=== PATIENT | female | born 1950 | race Caucasian/White ===

== ENCOUNTER 2019-12-20 12:05 | Inpatient (IN) | payer MEDICARE, MEDICAID, SELFPAY ==
[2019-12-20] VITALS (12 sets, daily range): BP systolic 132–149; BP diastolic 61–76; PULSE 68–126; RESP 20–30; TEMP 36.7–37; O2SAT 85–99; BMI 40.4
--- NOTE | ~2019-12-20 | CT_ITS ---
EXAMINATION: CT brain wo con DATE: 12/20/2019 13:45 INDICATION: Altered mental status TECHNIQUE: Computed tomography (CT) of the head was performed without intravenous contrast. Sagittal and coronal reconstructions were performed. The mA was adjusted according to patient size. Iterative reconstruction technique was employed. The dose-length product was 832.33 mGy-cm. COMPARISON: head CT dated 11/16/2015 FINDINGS: Small old lacunar infarct at the left thalamus. No acute intracranial hemorrhage, acute infarction or abnormal extra axial fluid collection. There is moderate scattered white matter hypoattenuation cons istent with chronic small vessel ischemic disease. Ventricles are normal and symmetric. No mass/mass effect. Mild mucosal thickening in the bilateral ethmoid and maxillary sinuses. The orbits and mastoi d air cells are normal. Intracranial calcified cerebral atherosclerosis is noted. IMPRESSION: 1. No acute intracranial process. 2. Unchanged old left thalamic lacunar infarct. 3. Moderate scattered white matter hypoattenuation consistent with chronic small vessel ischemic dise ase. Reviewed, dictated and finalized at location B. IMPRESSION: 1. No acute intracranial process. 2. Unchanged old left thalamic lacunar infarct. 3. Moderate scattered white matter hypoattenuation consistent with chronic smal l vessel ischemic disease.
--- NOTE | ~2019-12-20 | MR_ITS ---
EXAMINATION: MR brain/brain stem wo con DATE: 12/22/2019 13:08 INDICATION: Altered mental status. TECHNIQUE: Magnetic resonance imaging (MRI) of the brain and brainstem was performed without intraven ous contrast. Sequences included sagittal and axial T1-weighted FSE, axial diffusion-weighted FS EPI, axial T2*-weighted GRE, axial T2-weighted FLAIR Propeller, and axial T2-weighted Propeller. Apparent diffusion coefficient (ADC) maps were created. COMPARISON: Head CT 12/20/2019 FINDINGS: Motion artifact is noted. There are scattered areas of nonspecific increased T2-weighted si gnal intensity in the cerebral white matter and melissa. There is an old lacunar infarct in left thalamu s. There is no intracranial hemorrhage, acute infarction, or abnormal intracranial mass lesion. The v entricles are normal in size. There are likely changes of right ocular lens replacement surgery. Ther e is mild mucosal thickening in the paranasal sinuses. There is a small right mastoid effusion. IMPRESSION: 1. Old lacunar infarct in left thalamus. 2. Extensive nonspecific cerebral white matter disease and pontine disease, which likely represents c hronic small vessel ischemic disease. Reviewed, dictated and finalized at location A. IMPRESSION: 1. Old lacunar infarct in left thalamus. 2. Extensive nonspecific cerebral white matter disease and pontine disease, whi ch likely represents chronic small vessel ischemic disease.
--- NOTE | ~2019-12-20 | XR_ITS ---
EXAMINATION: XR chest 1V INDICATION: Shortness of breath TECHNIQUE: AP view of the chest is obtained. COMPARISON: 11/16/2015 FINDINGS: The heart size is upper limits of normal for technique. There are minimal airspace opacitie s of the lung bases, left greater than right. A small left pleural effusion is suggested. There is no pneumothorax. IMPRESSION: 1. Bibasilar airspace opacity, left greater than right, consistent with atelectasis versus pneumonia. 2. Possible small left pleural effusion. Reviewed, dictated and finalized at location A. IMPRESSION: 1. Bibasilar airspace opacity, left greater than right, consistent with atelect asis versus pneumonia. 2. Possible small left pleural effusion.
--- NOTE | ~2019-12-20 | US_ITS ---
EXAMINATION: US renal BI DATE: 12/21/2019 08:24 INDICATION: Acute kidney injury. TECHNIQUE: Multiple ultrasound grayscale images of the kidneys were obtained. COMPARISON: Abdomen MRI 02/12/2013 FINDINGS: The right kidney measures 9.0 x 4.8 x 5.0 cm. The left kidney measures 9.0 x 4.9 x 5.4 cm. The kidney s demonstrate normal parenchymal echogenicity. There is no hydronephrosis. The bladder is normal. IMPRESSION: 1. Normal kidneys. No hydronephrosis. Reviewed, dictated and finalized at location A.
--- NOTE | ~2019-12-20 | US_ITS ---
EXAMINATION: US venous doppler [facility] DATE: 12/21/2019 08:25 INDICATION: Lower limb edema. TECHNIQUE: Grayscale ultrasound images without and with compression and Doppler ultrasound images of the bilateral lower extremity veins were obtained. COMPARISON: Ultrasound 06/07/13 FINDINGS: The visualized portions of right common femoral vein, profunda (deep) femoral vein, femoral vein, pop liteal vein, peroneal veins, posterior tibial veins, and greater saphenous vein outflow are patent. The visualized portions of left common femoral vein, profunda femoral vein, femoral vein, popliteal v ein, peroneal veins, posterior tibial veins, and greater saphenous vein outflow are patent. IMPRESSION: 1. No deep venous thrombosis. Reviewed, dictated and finalized at location A.
--- NOTE | ~2019-12-20 | US_ITS ---
EXAMINATION: US carotid duplex BI DATE: 12/22/2019 08:10 INDICATION: Infarct in left thalamus. TECHNIQUE: Grayscale, color Doppler, and pulsed Doppler images of the cervical carotid arteries were obtained. The degree of vessel stenosis is placed in one of the following categories: normal, <50%, 5 0-69%, >=70% but less than near-occlusion, near-occlusion, or total occlusion. Note that percent sten osis relative to normal distal artery lumen diameter is indirectly measured from velocity measurement s as described by Daniel, et al. Radiology 2003; 229:340-346. COMPARISON: None. FINDINGS: RIGHT: The right common carotid artery (CCA) peak systolic velocity (PSV) is 63 cm/s. The right internal car otid artery (ICA) PSV is 109 cm/s. The right ICA end-diastolic velocity (EDV) is 20 cm/s. The right I CA/CCA PSV ratio is 1.7. Grayscale and color Doppler images yield an estimate of <50% diameter reduct ion from plaque in the ICA. There is antegrade flow in the right vertebral artery. LEFT: The left CCA PSV is 83 cm/s. The left ICA PSV is 92 cm/s. The left ICA EDV is 25 cm/s. The left ICA/C CA PSV ratio is 1.1. Grayscale and color Doppler images yield an estimate of <50% diameter reduction from plaque in the ICA. There is antegrade flow in the left vertebral artery. IMPRESSION: 1. <50% stenosis in the right internal carotid artery. 2. <50% stenosis in the left internal carotid artery. Reviewed, dictated and finalized at location A.
[2019-12-20 12:39] LABS: Add Urine Microscopic? NO; Appearance Urine Clear (Clear); Bilirubin Urine Negative (Negative); Blood Urine Negative (Negative); Color Urine Yellow (Yellow); Glucose Urine UA Negative (Negative); Ketones Urine Negative (Negative); Leukocyte Esterase Ur Negative LEU/UL (Negative); Nitrate Urine Negative (Negative); Protein Urine Negative (Negative); Specific Grav Ur 1.013 (1.001-1.035); Urobilinogen Urine Negative mg/dL (<2.0)
--- NOTE | 2019-12-20 12:41 | ECG_ITS ---
Measurements Intervals [place] Rate: 101 P: 59 LA: 149 QRS: 32 QRSD: 94 T: 29 QT: 340 QTc: 442 Interpretive Statements SINUS TACHYCARDIA VENTRICULAR PREMATURE COMPLEX POSSIBLE LEFT ATRIAL ENLARGEMENT BORDERLINE R WAVE PROGRESSION, ANTERIOR LEADS BASELINE ARTIFACT- I, II, III, AVR, AVF ABNORMAL ECG Electronically Signed On 12-20-2019 13:04:18 CDT by Monroe Kessler D.O.
[2019-12-20 12:42] LABS: Basophils Percent Auto 0.6 % (0.2-1.2); Eosinophils Absolute Auto 0.3 K/mm3 (0-0.3); Eosinophils Percent Auto 3.9 % (0-4.4); Hematocrit 32.4 % (37.0-47.0); Hemoglobin 10.4 g/dL (12.0-15.0); Immature Granulocyte Absolute 0.02 K/mm3 (0.00-0.031); Immature Granulocyte Percent A 0.3 % (0-0.5); Lymphocytes Absolute Auto 1.47 K/mm3 (0.9-3.2); Lymphocytes Percent Auto 20.5 % (18.3-44.2); Mean Corpuscular HGB Conc 32.1 g/dl (32-36); Mean Corpuscular Hemoglobin 29.6 pg (26-34); Mean Corpuscular Volume 92.3 fl (80-100); Mean Platelet Volume 9.6 fl (7.4-10.4); Monocytes Absolute Auto 0.4 K/mm3 (0.1-0.6); Monocytes Percent Auto 4.9 % (2.6-8.5); Neutrophils Percent Auto 69.8 % (45.5-73.1); Nucleated Red Blood Cells Perc 0.3 % (0.0-0.2); Platelet Count Result 230 k/mm3 (150-375); Red Blood Count 3.51 M/mm3 (4.2-5.4); Red Cell Distribution Width 17.1 % (11.5-14.5); White Blood Count 7.2 K/mm3 (4.5-10.0)
[2019-12-20 12:54] LABS: Anion Gap 4 mmol/L (8-16); Blood Urea Nitrogen 62 mg/dL (7-17); Carbon Dioxide 30 mmol/L (22-30); Chloride 105 mmol/L (98-107); Estimated CRCL calculation 22 ml/min; Estimated Glomerular Filt Rate 16; Glucose 112 mg/dL (65-105); Lactic Acid Reflex 0.7 mmol/L (0.7-2.1); Potassium 4.8 mmol/L (3.4-5.0); Sodium 139 mmol/L (137-145)
[2019-12-20] MEDS: SODIUM CHLORIDE 0.9% IV 1,000 ML 999 ML IV CONT (13:02)
[2019-12-20 13:42] LABS: Base Excess ABG 0.5 mEq/l (+/-2.0); HCO3 ABG 26.7 mEq/l (22.0-26.0); Oxygen Saturation ABG 82.5 % (95.0-100.0); PCO2 ABG 50.2 mmHg (35.0-45.0); PO2 ABG 49.5 mmHg (80.0-100.0); pH ABG 7.344 (7.350-7.450)
[2019-12-20 13:43] LABS: Alveolar/Arterial O2 Gradient 40.1 mmHg; Carboxyhemoglobin 4.4 % THb (0-2.0); Device ROOM AIR; Fractional Inspired Oxygen 21 %; Methemoglobin ABG 0.3 %THb (0-1.5); Modified Allen's Test Pass; Oxygen Content ABG 12.6 %vol (16.0-22.0); Oxyhemoglobin 81.3 % THb (90.0-100.0); PO2 FiO2 Ratio Arterial Blood 2.36 %; Site Drawn LEFT RADIAL
[2019-12-20 14:05] LABS: NT Pro B Type Natriuretic Pept 930 PG/ML (5-100)
--- NOTE | 2019-12-20 14:16 | ED.AMS ---
HPI - Altered Mental Status General Chief Complaint: Altered Mental Status Stated Complaint: AMS History of Present Illness HPI narrative: Patient is a 69-year-old female who presents the ER with altered mental status. Last known normal was yesterday. Patient not come down from her apartment for breakfast today. Patient is alert and oriented x1 which is apparently abnormal for her. She has no complaints but there is clear limitation due to her mental status. Patient was hypoxic upon arrival for EMS so she was placed on supplemental O2. Related Data Home Medications Medication Instructions Recorded Confirmed Adults Multivitamin 1 tablet PO DAILY 12/20/19 12/20/19 acetaminophen [Tylenol] 325 mg PO Q4-6H PRN 12/20/19 12/20/19 allopurinol 100 mg PO DAILY 12/20/19 12/20/19 aspirin [Baby Aspirin] 81 mg PO DAILY 12/20/19 12/20/19 atorvastatin 20 mg PO DAILY 12/20/19 12/20/19 chlorthalidone 25 mg PO DAILY 12/20/19 12/20/19 cholecalciferol (vitamin D3) 1,000 units PO DAILY 12/20/19 12/20/19 furosemide 60 mg PO DAILY 12/20/19 12/20/19 gabapentin 300 mg PO TID 12/20/19 12/20/19 glimepiride 1 mg PO DAILY 12/20/19 12/20/19 insulin degludec [Tresiba 14 unit SUBCUT DAILY 12/20/19 12/20/19 FlexTouch U-100] lisinopril 40 mg PO DAILY 12/20/19 12/20/19 oxybutynin chloride 5 mg PO DAILY 12/20/19 12/20/19 pantoprazole [Protonix] 20 mg PO DAILY 12/20/19 12/20/19 triamcinolone acetonide 1 applic TOPICAL DAILY 12/20/19 12/20/19 Allergies Allergy/AdvReac Type Severity Reaction Status Date / Time No Known Allergies Allergy Verified 12/20/19 18:11 Review of Systems Review of Systems: ROS unobtainable: Yes unobtainable due to mental status PMFSH Past Medical History Medical History (Updated 12/21/19 @ 00:16 by Angel Rushing MD) Chronic obstructive pulmonary disease Diabetic retinopathy 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 History of colon polyps History of peptic ulcer disease Hyperlipidemia Hypertension Insulin dependent diabetes mellitus Morbid obesity Overactive bladder Tobacco abuse Surgical History Surgical History (Updated 12/20/19 @ 21:01 by Mine Sidhu PA-C) History of cholecystectomy Family History Family History (Updated 12/20/19 @ 21:02 by Mine Sidhu PA-C) Mother Emphysema/COPD Father Carcinoma of colon Sibling Diabetes mellitus Social History Social History (Updated 12/20/19 @ 21:03 by Mine Sidhu PA-C) Social History: Surrogate decision maker: Yfn Cheung, nephew. Code status: Full code. Smoking packs per day: 2 Smoking cigarettes per day: 40.0 Years smoked: 58 Smoking pack-years: 116.00 Alcohol intake: never Substance use: never Additional living arrangements comments: Lives in a senior apartment in [place]. Reportedly independent of ADLs. Ambulates mainly with an electric scooter. Gender identity (if verbalized by the patient): Female Sexual Orientation (if Verbalized by the Patient): Straight or Heterosexual Spiritual care concerns: No Exam Narrative: Exam Narrative: GENERAL: Chronically ill-appearing, morbidly obese, smells of old urine. HEAD: Normocephalic, atraumatic. EYES: PERRL and EOMI. CHEST: Clear to auscultation, occasional coarse cough. No respiratory distress. HEART: Tachycardic and regular. Normal peripheral pulses. ABDOMEN: Soft, nontender, nondistended. EXTREMITIES: Normal range of motion. Chronic venous stasis changes bilateral lower extremities.. SKIN: Warm, dry, no rash. NEURO: Alert and oriented x1 Course Course Emergency Course: Heart rate improving with fluids. Admit to hospitalist service. Patient now oriented x2. Vital Signs Vital signs: Vital Signs Temperature 98.3 F 12/20/19 12:27 Pulse Rate 126 H 12/20/19 12:27 Respiratory Rate 30 H 12/20/19 12:27 Blood Pressure 132/76 12/20/19 12:27 Pulse Oximetry 96 12/20/19 12:27 Temperature 98.6 F 12/20/19 22:00
--- NOTE | 2019-12-20 17:15 | PM.IMHP ---
H&P: HPI History of Present Illness Date/Time: 12/20/19 17:15 Chief complaint: Altered mental status. Narrative: Sherrie Muniz is a 69-year-old female smoker with type 2 diabetes mellitus, hypertension, and COPD who presented to the emergency department earlier today via EMS from home for evaluation of altered mental status. Given her underlying confusion she is not able to provide me with an accurate history and as such a majority of this history is obtained via a review of her electronic medical records as well as discussions with nursing staff and review of the EMS report. At baseline she is reportedly alert and oriented x4 and gets around mainly with the use of an electric scooter. She lives in a senior apartment and it sounds as though meals are provided for them in a common place and she apparently did not show up for dinner last night or this morning, prompting investigation. Her friend Dayo last saw her in her usual state of health yesterday afternoon and she seemed to be doing just fine. In any event, EMS found her sitting in a recliner, alert and oriented x1, however she was not answering questions. At the time my evaluation she is alert to her name, age, and place however she cannot recall the events of the last 24 hours. The only complaint she has at this time is of the room being cold and she requests a warm blanket. Currently she denies headache, acute auditory and visual changes (she is blind in the left eye) fever, sweats, cough, shortness of breath, sick contacts, nausea, vomiting, diarrhea, and dysuria. Review of Systems Review of Systems: Narrative: Twelve systems were reviewed with pertinent positives and negatives as per HPI. Given her underlying confusion and inability to recall what happened over last 24 hour she is not able to provide me with an accurate review of systems but did specifically deny those as detailed in HPI. All other systems were reviewed and she either stated ?no? or I do not know? for every question asked of her. 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 History of colon polyps History of peptic ulcer disease Hyperlipidemia Hypertension Insulin dependent diabetes mellitus Morbid obesity Overactive bladder Tobacco abuse Surgical History Surgical History (Updated 12/20/19 @ 21:01 by Mine Sidhu PA-C) History of cholecystectomy Family History Family History (Updated 12/20/19 @ 21:02 by Mine Sidhu PA-C) Mother Emphysema/COPD Father Carcinoma of colon Sibling Diabetes mellitus Social History Social History (Updated 12/20/19 @ 21:03 by Mine Sidhu PA-C) Social History: Surrogate decision maker: Yfn Cheung, nephew. Code status: Full code. Smoking packs per day: 2 Smoking cigarettes per day: 40.0 Years smoked: 58 Smoking pack-years: 116.00 Alcohol intake: never Substance use: never Additional living arrangements comments: Lives in a senior apartment in [place]. Reportedly independent of ADLs. Ambulates mainly with an electric scooter. Gender identity (if verbalized by the patient): Female Sexual Orientation (if Verbalized by the Patient): Straight or Heterosexual Spiritual care concerns: No Meds Home Medications and Allergies Home Medications Medication Instructions Recorded Confirmed Type Adults Multivitamin 1 tablet PO DAILY 12/20/19 12/20/19 History acetaminophen [Tylenol] 325 mg PO Q4-6H PRN 12/20/19 12/20/19 History allopurinol 100 mg PO DAILY 12/20/19 12/20/19 History aspirin [Baby Aspirin] 81 mg PO DAILY 12/20/19 12/20/19 History atorvastatin 20 mg PO DAILY 12/20/19 12/20/19 History chlorthalidone 25 mg PO DAILY 12/20/19 12/20/19 History cholecalciferol (vitamin D3) 1,000 units PO DAILY 12/20/19 12/20/19 History furosemide 60 mg PO DA
--- NOTE | 2019-12-20 18:15 | PC.NURSE ---
9622 This patient, Sherrie Muniz, was admitted to [facility] Surg Room 324-01. Patient/family oriented to hospital policies and general routines including ID bracelet, bed and alarms, visiting hours, pain management, procedures, bathroom and other care routines, personal items, smoking policy, room service/diet, and visiting hours. Information on how to activate the Rapid Response Team has been discussed. Patient/Family are encouraged to report perceived risks to care and to ask questions if they do not understand what they are told or what they should do.
[2019-12-20] MEDS: SODIUM CHLORIDE 0.9% IV 1,000 ML 125 ML IV CONT (18:23)
[2019-12-20] MEDS: IPRATROPIUM BR 0.02% INH SOLN 0.5 MG/2.5 ML VIAL INHALATION (19:28)
[2019-12-20] MEDS: ALBUTEROL SULFATE NEB 2.5 MG/0.5 ML INH 5 MG INHALATION (19:28)
[2019-12-20 21:38] LABS: Alveolar/Arterial O2 Gradient 47.5 mmHg; Base Excess ABG -3.1 mEq/l (+/-2.0); Carboxyhemoglobin 1.2 % THb (0-2.0); Fractional Inspired Oxygen 21 %; HCO3 ABG 22.8 mEq/l (22.0-26.0); Methemoglobin ABG 0.3 %THb (0-1.5); Oxygen Content ABG 12.7 %vol (16.0-22.0); Oxyhemoglobin 83.6 % THb (90.0-100.0); PCO2 ABG 44.4 mmHg (35.0-45.0); PO2 FiO2 Ratio Arterial Blood 2.34 %; Reduced Hemoglobin 14.9 %THb (0-5.0); Total Hemoglobin 10.8 g/dL (12.0-18.0); pH ABG 7.329 (7.350-7.450)
[2019-12-20 21:43] LABS: Oxygen Saturation ABG 81.9 % (95.0-100.0); PO2 ABG 49.1 mmHg (80.0-100.0)
[2019-12-20 21:46] LABS: Hemoglobin A1C 7.4 % (<5.7)
[2019-12-20 21:51] LABS: Alanine Aminotransferase 26 U/L (4-35); Albumin Level 3.2 g/dL (3.5-5.1); Alkaline Phosphatase 280 U/L (38-126); Anion Gap 3 mmol/L (8-16); Aspartate Amino Transferase 31 U/L (14-36); Bilirubin,Total 0.3 mg/dL (0.2-1.3); Blood Urea Nitrogen 56 mg/dL (7-17); Calcium 8.7 mg/dL (8.4-10.2); Carbon Dioxide 29 mmol/L (22-30); Chloride 107 mmol/L (98-107); Creatine Kinase 441 U/L (30-135); Estimated CRCL calculation 26 ml/min; Estimated Glomerular Filt Rate 19; Glucose 88 mg/dL (65-105); Magnesium 2.3 mg/dL (1.6-2.3); Potassium 4.1 mmol/L (3.4-5.0); Sodium 139 mmol/L (137-145)
[2019-12-20 22:07] LABS: Iron 39 ug/dL (37-170)
[2019-12-20 22:18] LABS: Percent Iron Saturation 15 % (20-50)
[2019-12-20 23:13] LABS: Folic Acid > 20.0 ng/mL (2.76->20)
[2019-12-21] VITALS (11 sets, daily range): BP systolic 137–157; BP diastolic 55–87; PULSE 72–93; RESP 16–20; TEMP 36.4–36.9; O2SAT 96–98
[2019-12-21 00:43] LABS: Glucose Point of Care 82 (65-105)
[2019-12-21] MEDS: ALBUTEROL SULFATE NEB 2.5 MG/0.5 ML INH 5 MG INHALATION (01:53)
[2019-12-21] MEDS: IPRATROPIUM BR 0.02% INH SOLN 0.5 MG/2.5 ML VIAL INHALATION (01:54)
[2019-12-21] MEDS: SODIUM CHLORIDE 0.9% IV 1,000 ML 125 ML IV CONT ×2 (02:33→12:23)
[2019-12-21] MEDS: diphenhydrAMINE HCl CAP 25 MG CAPSULE PO (03:24)
[2019-12-21 03:42] LABS: Amphetamine Screen Urine Negative (Negative); Barbiturate Screen Urine Negative (Negative); Benzodiazepines Screen Urine Negative (Negative); Cannabinoid Screen Urine Negative (Negative); Cocaine Screen Urine Negative (Negative); Methadone Screen Urine Negative (Negative); Opiate Screen Urine Negative (Negative); Phencyclidine Screen Urine Negative (Negative)
[2019-12-21 06:02] LABS: Glucose Point of Care 142 (65-105)
[2019-12-21 09:30] LABS: Glucose Point of Care 100 (65-105)
--- NOTE | 2019-12-21 17:05 | PM.IMPN ---
Progress Note: A&P Assessment and Plan (1) Metabolic encephalopathy: Code(s): G93.41 - Metabolic encephalopathy Status: Acute (2) Respiratory failure with hypoxia and hypercapnia: Code(s): J96.91 - Respiratory failure, unspecified with hypoxia; J96.92 - Respiratory failure, unspecified with hypercapnia Status: Acute (3) Acute kidney injury: Code(s): N17.9 - Acute kidney failure, unspecified Status: Acute (4) Dehydration: Code(s): E86.0 - Dehydration Status: Acute (5) Normocytic anemia: Code(s): D64.9 - Anemia, unspecified Status: Acute (6) Insulin dependent diabetes mellitus: Status: Acute (7) Hypertension: Code(s): I10 - Essential (primary) hypertension Status: Inactive (8) Chronic obstructive pulmonary disease: Code(s): J44.9 - Chronic obstructive pulmonary disease, unspecified Status: Acute (9) Tobacco abuse: Code(s): Z72.0 - Tobacco use Status: Acute (10) Hyperlipidemia: Code(s): E78.5 - Hyperlipidemia, unspecified Status: Inactive Additional Plan 12/20/19:: The patient was admitted to the hospitalist service for further evaluation and treatment of metabolic encephalopathy presumably secondary to acute kidney injury, dehydration, and hypoxia/hypercapnia with possible chronic underlying respiratory failure. 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 She was admitted to telemetry and neurologic checks ordered. She seemed to perk up with IV fluids. Renal ultrasound ordered. Her blood pressure were well controlled. However, she was monitored closely because her lisinopril, chlorthalidone, and furosemide were placed on hold given acute kidney injury. Check hemoglobin A1c and initiate sliding scale insulin, Accu-Cheks, and hypoglycemic protocol. ABGs consistent with a chronic respiratory acidosis and given her body habitus she may very well have underlying obesity hypoventilation syndrome or even obstructive sleep apnea. Apnea link was ordered. Updrafts will be available as needed. No indication for steroids at this time. CXR showing bibasilar airspace opacity, left greater than right, consistent with atelectasis versus pneumonia. UDS negative 12/21/19:: Renal ultrasound was normal. Bilateral LE venous doppler was negative for DVT. Echo showing EF 65-70% with grade I diastolic dysfunction. ABG showing improvement last night with pCO2 down to 44. TCK 441. Cr better last night on repeat. Will continue IV fluids but decrease the rate. Start PT/OT. Eucerin cream to the legs. Resume some of her medications. Patient's blood pressure was reviewed on 12/20 and remains well controlled. The patient's blood glucose was reviewed on 12/20. Glucose remains well controlled. Continue AccuCheks covering with sliding scale. Hypoglycemia protocol available as needed. Will proceed with MRI brain. Lovenox for DVT prophylaxis Subjective Date/time seen: 12/21/19 17:05 Interval history: Date of service: 12/20 69yo female with DM and HTN here for altered mental status. Patient is alert but confused. She is unable to provide history. Review of Systems Review of Systems: ROS unobtainable: Yes unobtainable due to mental status Exam Narrative: Exam Narrative: AF 97.6 137/55 80 16 98% ra Gen - NARD sitting up in bed watching TV Chest - right base inspiratory crackles o/w clear CV - RRR S1/S2; Tele showing no significant dysrhythmias Abd - Soft, obese, NT Ext - deep fissured wrinkles bilateral LE Neuro - Alert, confused. Oriented to her name and location but perseverates with the answer '[birth year]' when asked the year or month. no obvious focal findings Psych - pleasant and mostly cooperative Skin - Warm and dry. Excoriations on the upper chest, abdomen and left lower extremity. Chronic bilateral LE skin changes with thickened, wrinkled skin. No linear tracks in the webs of the fingers or toes. Objective Da
[2019-12-21 17:37] LABS: Glucose Point of Care 142 (65-105)
[2019-12-21 18:20] LABS: Glucose Point of Care 189 (65-105)
[2019-12-21] MEDS: ENOXAPARIN 30 MG/0.3 ML SYRINGE SUB-Q (18:25)
[2019-12-21] MEDS: SODIUM CHLORIDE 0.9% IV 1,000 ML 75 ML IV CONT (20:27)
--- NOTE | 2019-12-21 21:27 | ECHO_ITS ---
Patient Info Name: Sherrie Muniz Age: 69 years : 1950 Gender: Female Ht: 66 in Wt: 250 lbs BSA: 2.35 m2 HR: 86 bpm BP: 147 / 87 mmHg Heart Rhythm: Sinus Rhythm Technical Quality: Poor Exam Date: 12/21/2019 7:58 AM Exam Location: [facility] Pulmonary Patient Status: Outpatient Admit Date: 12/20/2019 Staff Ordering Physician: Mine Sidhu PA-C Maintenance Millwright: Jesi Dahl RDCS Attending Provider: Allan Hedrick MD Referring Physician: Nahum PETERS; Exam Type: CA echo dop color flow w con Study Info Complete two-dimensional, color flow and Doppler transthoracic echocardiogram is performed with contrast to opacify the left ventricle and to improve the deliniation of the left ventricle endocardial borders. Contrast/Agitated Saline Contrast/Ag. Saline: Definity Amount: 4.00 ml Summary 1. Left ventricular systolic function is normal, estimated at 65-70%. 2. The left ventricular diastolic function is grade I diastolic dysfunction. 3. Definity contrast used to improve visualization. 4. Left atrial chamber dimension is mildly enlarged. 5. There is mild aortic valve sclerosis. 6. The left coronary cusp is sclerotic but the others are not. Overall therefore no stenosis. Left Ventricle Left ventricular chamber dimension is normal. Left ventricular systolic function is normal, estimated at 65-70%. There is mild concentric increased left ventricular wall thickness. The left ventricular diastolic function is grade I diastolic dysfunction. Definity contrast used to improve visualization. Right Ventricle Right ventricular chamber dimension is normal. Left Atria Left atrial chamber dimension is mildly enlarged. Right Atria Right atrial chamber dimension is normal. Aortic Valve The aortic valve is trileaflet. There is mild aortic valve sclerosis. The left coronary cusp is sclerotic but the others are not. Overall therefore no stenosis. Pulmonic Valve The pulmonic valve is not well visualized. Mitral Valve The mitral valve has normal leaflets. The mitral valve annulus is moderately calcified. Tricuspid Valve The tricuspid valve leaflets are normal. Pericardium/Pleural The pericardium appears normal. Aorta The aortic root size at the sinus of Valsalva is normal. Left Ventricular Outflow Tract Name Value Normal LVOT 2D LVOT Diameter 2.35 cm LVOT Doppler LVOT Peak Velocity 118.40 cm/s LVOT Peak Gradient 6 mmHg LVOT Mean Gradient 3 mmHg LVOT VTI 25.96 cm LVOT VTI/AV VTI Ratio 0.45 LVOT Stroke Volume 112.96 ml LVOT CO 8.36 l/min LVOT CI 3.55 L/min/m2 Pulmonic Valve Name Value Normal PV Doppler
[2019-12-21 22:03] LABS: Glucose Point of Care 176 (65-105)
[2019-12-22] VITALS (11 sets, daily range): BP systolic 148–160; BP diastolic 54–76; PULSE 61–102; RESP 20; TEMP 36.1–36.8; O2SAT 96–100
[2019-12-22 06:38] LABS: Hematocrit 30.7 % (37.0-47.0); Hemoglobin 9.8 g/dL (12.0-15.0); Mean Corpuscular HGB Conc 31.9 g/dl (32-36); Mean Corpuscular Hemoglobin 29.6 pg (26-34); Mean Corpuscular Volume 92.7 fl (80-100); Mean Platelet Volume 10.1 fl (7.4-10.4); Platelet Count Result 209 k/mm3 (150-375); Red Blood Count 3.31 M/mm3 (4.2-5.4); Red Cell Distribution Width 16.7 % (11.5-14.5); White Blood Count 6.6 K/mm3 (4.5-10.0)
[2019-12-22 07:16] LABS: Albumin Level 3.2 g/dL (3.5-5.1); Anion Gap 3 mmol/L (8-16); Blood Urea Nitrogen 33 mg/dL (7-17); Calcium 8.9 mg/dL (8.4-10.2); Carbon Dioxide 28 mmol/L (22-30); Chloride 112 mmol/L (98-107); Estimated CRCL calculation 38 ml/min; Estimated Glomerular Filt Rate 30; Glucose 144 mg/dL (65-105); Phosphorus 2.6 mg/dL (2.5-4.5); Potassium 4.3 mmol/L (3.4-5.0); Sodium 143 mmol/L (137-145)
[2019-12-22 08:57] LABS: Glucose Point of Care 137 (65-105)
[2019-12-22] MEDS: EUCERIN CREAM 454 GM JAR 1 APPLIC TOPICAL ×2 (09:00→19:13)
[2019-12-22] MEDS: SODIUM CHLORIDE 0.9% IV 1,000 ML 75 ML IV CONT ×2 (10:05→20:33)
[2019-12-22] MEDS: ASPIRIN 81 MG CHEWABLE TABLET PO (10:06)
[2019-12-22] MEDS: PANTOPRAZOLE SOD SESQUIHYDRATE 20 MG TAB PO (10:06)
[2019-12-22] MEDS: ATORVASTATIN 20 MG TABLET PO (10:07)
[2019-12-22] MEDS: MULTIVITAMINS THERAPEUTIC TAB (*BKC) 1 TABLET PO (10:07)
[2019-12-22] MEDS: CHOLECALCIFEROL 1,000 UNITS TABLET 1000 UNITS PO (10:07)
[2019-12-22] MEDS: ENOXAPARIN 30 MG/0.3 ML SYRINGE SUB-Q (10:08)
[2019-12-22 13:33] LABS: Glucose Point of Care 151 (65-105)
--- NOTE | 2019-12-22 16:32 | PM.IMPN ---
Progress Note: A&P Assessment and Plan (1) Metabolic encephalopathy: Code(s): G93.41 - Metabolic encephalopathy Status: Acute (2) Respiratory failure with hypoxia and hypercapnia: Code(s): J96.91 - Respiratory failure, unspecified with hypoxia; J96.92 - Respiratory failure, unspecified with hypercapnia Status: Acute (3) Acute kidney injury: Code(s): N17.9 - Acute kidney failure, unspecified Status: Acute (4) Dehydration: Code(s): E86.0 - Dehydration Status: Acute (5) Normocytic anemia: Code(s): D64.9 - Anemia, unspecified Status: Acute (6) Insulin dependent diabetes mellitus: Status: Acute (7) Hypertension: Qualifiers: Hypertension type: essential hypertension Qualified Code(s): I10 - Essential (primary) hypertension Code(s): I10 - Essential (primary) hypertension Status: Inactive (8) Chronic obstructive pulmonary disease: Qualifiers: COPD type: unspecified COPD Qualified Code(s): J44.9 - Chronic obstructive pulmonary disease, unspecified Code(s): J44.9 - Chronic obstructive pulmonary disease, unspecified Status: Acute (9) Tobacco abuse: Code(s): Z72.0 - Tobacco use Status: Acute (10) Hyperlipidemia: Qualifiers: Hyperlipidemia type: unspecified Qualified Code(s): E78.5 - Hyperlipidemia, unspecified Code(s): E78.5 - Hyperlipidemia, unspecified Status: Inactive Additional Plan 12/20/19:: The patient was admitted to the hospitalist service for further evaluation and treatment of metabolic encephalopathy presumably secondary to acute kidney injury, dehydration, and hypoxia/hypercapnia with possible chronic underlying respiratory failure. 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 She was admitted to telemetry and neurologic checks ordered. She seemed to perk up with IV fluids. Renal ultrasound ordered. Her blood pressure were well controlled. However, she was monitored closely because her lisinopril, chlorthalidone, and furosemide were placed on hold given acute kidney injury. Check hemoglobin A1c and initiate sliding scale insulin, Accu-Cheks, and hypoglycemic protocol. ABGs consistent with a chronic respiratory acidosis and given her body habitus she may very well have underlying obesity hypoventilation syndrome or even obstructive sleep apnea. Apnea link was ordered. Updrafts will be available as needed. No indication for steroids at this time. CXR showing bibasilar airspace opacity, left greater than right, consistent with atelectasis versus pneumonia. UDS negative 12/21/19:: Renal ultrasound was normal. Bilateral LE venous doppler was negative for DVT. Echo showing EF 65-70% with grade I diastolic dysfunction. ABG showing improvement last night with pCO2 down to 44. TCK 441. Cr better last night on repeat. Will continue IV fluids but decrease the rate. Start PT/OT. Eucerin cream to the legs. Resume some of her medications. Patient's blood pressure was reviewed on 12/20 and remains well controlled. The patient's blood glucose was reviewed on 12/20. Glucose remains well controlled. Continue AccuCheks covering with sliding scale. Hypoglycemia protocol available as needed. Will proceed with MRI brain. 12/22/19:: MRI showing no acute findings. Carotid doppler showing <50% stenosis bilateral ICAs. Cr better at 1.7 and she seems slightly more animated. Continue PT/OT. Continue IV fluids. Discussed with nephew. Lovenox for DVT prophylaxis Subjective Date/time seen: 12/22/19 16:32 Interval history: Date of service: 12/21 69yo female with DM and HTN here for altered mental status. Patient remains alert but confused. She is unable to provide history. Review of Systems Review of Systems: ROS unobtainable: Yes unobtainable due to mental status Exam Narrative: Exam Narrative: AF 97.7 148/54 69 20 96% Gen - NARD Chest - bibasilar inspirato
[2019-12-22 18:05] LABS: Glucose Point of Care 151 (65-105)
[2019-12-22 22:05] LABS: Glucose Point of Care 174 (65-105)
[2019-12-23] VITALS (8 sets, daily range): BP systolic 132–170; BP diastolic 59–86; PULSE 57–77; RESP 18–20; TEMP 36.4–36.9; O2SAT 93–100
[2019-12-23 06:50] LABS: Potassium 4.3 mmol/L (3.4-5.0)
[2019-12-23 06:52] LABS: Anion Gap 2 mmol/L (8-16); Blood Urea Nitrogen 28 mg/dL (7-17); Calcium 8.8 mg/dL (8.4-10.2); Carbon Dioxide 28 mmol/L (22-30); Chloride 110 mmol/L (98-107); Estimated CRCL calculation 49 ml/min; Estimated Glomerular Filt Rate 41; Glucose 134 mg/dL (65-105); Sodium 140 mmol/L (137-145)
[2019-12-23 07:14] LABS: Device ROOM AIR; Modified Allen's Test Pass; Site Drawn RIGHT RADIAL
[2019-12-23] MEDS: PANTOPRAZOLE SOD SESQUIHYDRATE 20 MG TAB PO (08:10)
[2019-12-23] MEDS: MULTIVITAMINS THERAPEUTIC TAB (*BKC) 1 TABLET PO (08:10)
[2019-12-23] MEDS: EUCERIN CREAM 454 GM JAR 1 APPLIC TOPICAL ×2 (08:10→17:42)
[2019-12-23] MEDS: ATORVASTATIN 20 MG TABLET PO (08:10)
[2019-12-23] MEDS: ENOXAPARIN 30 MG/0.3 ML SYRINGE SUB-Q (08:10)
[2019-12-23] MEDS: ASPIRIN 81 MG CHEWABLE TABLET PO (08:10)
[2019-12-23] MEDS: CHOLECALCIFEROL 1,000 UNITS TABLET 1000 UNITS PO (08:10)
[2019-12-23 08:24] LABS: Glucose Point of Care 128 (65-105)
--- NOTE | 2019-12-23 09:54 | PCRCNOTE ---
Apnea link testing was attempted on 12/19, but patient refused to keep any equipment on, including nasal cannula and mask.
--- NOTE | 2019-12-23 16:19 | PM.IMPN ---
Progress Note: A&P Assessment and Plan (1) Metabolic encephalopathy: Code(s): G93.41 - Metabolic encephalopathy Status: Acute (2) Respiratory failure with hypoxia and hypercapnia: Code(s): J96.91 - Respiratory failure, unspecified with hypoxia; J96.92 - Respiratory failure, unspecified with hypercapnia Status: Acute (3) Acute kidney injury: Code(s): N17.9 - Acute kidney failure, unspecified Status: Acute (4) Dehydration: Code(s): E86.0 - Dehydration Status: Acute (5) Normocytic anemia: Code(s): D64.9 - Anemia, unspecified Status: Acute (6) Insulin dependent diabetes mellitus: Status: Acute (7) Hypertension: Qualifiers: Hypertension type: essential hypertension Qualified Code(s): I10 - Essential (primary) hypertension Code(s): I10 - Essential (primary) hypertension Status: Inactive (8) Chronic obstructive pulmonary disease: Qualifiers: COPD type: unspecified COPD Qualified Code(s): J44.9 - Chronic obstructive pulmonary disease, unspecified Code(s): J44.9 - Chronic obstructive pulmonary disease, unspecified Status: Acute (9) Tobacco abuse: Code(s): Z72.0 - Tobacco use Status: Acute (10) Hyperlipidemia: Qualifiers: Hyperlipidemia type: unspecified Qualified Code(s): E78.5 - Hyperlipidemia, unspecified Code(s): E78.5 - Hyperlipidemia, unspecified Status: Inactive Additional Plan 12/20/19:: The patient was admitted to the hospitalist service for further evaluation and treatment of metabolic encephalopathy presumably secondary to acute kidney injury, dehydration, and hypoxia/hypercapnia with possible chronic underlying respiratory failure. 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 She was admitted to telemetry and neurologic checks ordered. She seemed to perk up with IV fluids. Renal ultrasound ordered. Her blood pressure were well controlled. However, she was monitored closely because her lisinopril, chlorthalidone, and furosemide were placed on hold given acute kidney injury. Check hemoglobin A1c and initiate sliding scale insulin, Accu-Cheks, and hypoglycemic protocol. ABGs consistent with a chronic respiratory acidosis and given her body habitus she may very well have underlying obesity hypoventilation syndrome or even obstructive sleep apnea. Apnea link was ordered. Updrafts will be available as needed. No indication for steroids at this time. CXR showing bibasilar airspace opacity, left greater than right, consistent with atelectasis versus pneumonia. UDS negative 12/21/19:: Renal ultrasound was normal. Bilateral LE venous doppler was negative for DVT. Echo showing EF 65-70% with grade I diastolic dysfunction. ABG showing improvement last night with pCO2 down to 44. TCK 441. Cr better last night on repeat. Will continue IV fluids but decrease the rate. Start PT/OT. Eucerin cream to the legs. Resume some of her medications. Patient's blood pressure was reviewed on 12/20 and remains well controlled. The patient's blood glucose was reviewed on 12/20. Glucose remains well controlled. Continue AccuCheks covering with sliding scale. Hypoglycemia protocol available as needed. Will proceed with MRI brain. 12/22/19:: MRI showing no acute findings. Carotid doppler showing <50% stenosis bilateral ICAs. Cr better at 1.7 and she seems slightly more animated. Continue PT/OT. Continue IV fluids. Discussed with nephew. 12/23/19:: Cr back down to 1.3 now. Still confused and suspect this might be her baseline. Unclear if this is new or mor chronic changes. Stop tele. Stop IV fluids. Patient can be accepted at [facility] but will need COVID screening. Lovenox for DVT prophylaxis Subjective Date/time seen: 12/23/19 16:19 Interval history: Date of service: 12/22 69yo female with DM and HTN here for altered mental status. Patient rem
[2019-12-23 17:18] LABS: Glucose Point of Care 148 (65-105)
[2019-12-23] MEDS: ACETAMINOPHEN 325 MG TABLET 650 MG PO (18:25)
[2019-12-23 20:34] LABS: Glucose Point of Care 165 (65-105)
[2019-12-23 20:37] LABS: Glucose Point of Care 166 (65-105)
--- NOTE | 2019-12-23 22:33 | PCRCNOTE ---
pt refuses sleep study, is confused, and does not want study,says she anant take it off
[2019-12-24 06:00] VITALS: BP 142/51; PULSE 66; RESP 18; TEMP 37; O2SAT 100
[2019-12-24 08:06] LABS: Glucose Point of Care 132 (65-105)
[2019-12-24 08:16] VITALS: PULSE 68; RESP 18; O2SAT 97
[2019-12-24] MEDS: ENOXAPARIN 30 MG/0.3 ML SYRINGE SUB-Q (10:02)
[2019-12-24] MEDS: CHOLECALCIFEROL 1,000 UNITS TABLET 1000 UNITS PO (10:02)
[2019-12-24] MEDS: ATORVASTATIN 20 MG TABLET PO (10:02)
[2019-12-24] MEDS: PANTOPRAZOLE SOD SESQUIHYDRATE 20 MG TAB PO (10:03)
[2019-12-24] MEDS: MULTIVITAMINS THERAPEUTIC TAB (*BKC) 1 TABLET PO (10:03)
[2019-12-24] MEDS: EUCERIN CREAM 454 GM JAR 1 APPLIC TOPICAL ×2 (10:03→16:49)
[2019-12-24] MEDS: ASPIRIN 81 MG CHEWABLE TABLET PO (10:03)
[2019-12-24 12:16] LABS: Glucose Point of Care 180 (65-105)
[2019-12-24 13:57] LABS: SARS-CoV-2 RNA PCR Negative
[2019-12-24 14:00] VITALS: BP 154/60; PULSE 60; RESP 12; TEMP 36.2; O2SAT 100
--- NOTE | 2019-12-26 18:33 | PM.DS ---
DS: Admitting Diagnosis Admitting Diagnosis Admitting Diagnosis: Acute kidney injury,Metabolic Encephalopathy, DS: Discharge Diagnosis Discharge Diagnosis (1) Metabolic encephalopathy: Code(s): G93.41 - Metabolic encephalopathy Status: Acute Assessment and Plan: resolved to baseline after hydration (2) Respiratory failure with hypoxia and hypercapnia: Code(s): J96.91 - Respiratory failure, unspecified with hypoxia; J96.92 - Respiratory failure, unspecified with hypercapnia Status: Acute Assessment and Plan: improved with updrafts. echocardiogram normal ejection fraction (3) Acute kidney injury: Code(s): N17.9 - Acute kidney failure, unspecified Status: Acute Assessment and Plan: creatinine fell to 1.3 by the time of discharge. renal sonogram no obstruction (4) Dehydration: Code(s): E86.0 - Dehydration Status: Acute Assessment and Plan: rehydrated parenterally and taking p.o. liquids by the time of discharge (5) Normocytic anemia: Code(s): D64.9 - Anemia, unspecified Status: Acute Assessment and Plan: remained stable and unchanged (6) Insulin dependent diabetes mellitus: Status: Acute Assessment and Plan: continue insulin and oral hypoglycemic on discharge (7) Hypertension: Qualifiers: Hypertension type: essential hypertension Qualified Code(s): I10 - Essential (primary) hypertension Code(s): I10 - Essential (primary) hypertension Status: Inactive Assessment and Plan: pressure well controlled on lisinopril and chlorthalidone which will continue (8) Chronic obstructive pulmonary disease: Qualifiers: COPD type: unspecified COPD Qualified Code(s): J44.9 - Chronic obstructive pulmonary disease, unspecified Code(s): J44.9 - Chronic obstructive pulmonary disease, unspecified Status: Acute Assessment and Plan: received updrafts while here but lungs clear discharge venous Doppler no DVTs (9) Tobacco abuse: Code(s): Z72.0 - Tobacco use Status: Acute (10) Hyperlipidemia: Qualifiers: Hyperlipidemia type: unspecified Qualified Code(s): E78.5 - Hyperlipidemia, unspecified Code(s): E78.5 - Hyperlipidemia, unspecified Status: Inactive Assessment and Plan: continue statin therapy DS: Summary Hospital Course Hospital Course: 69-year-old demented lady with hypertension and diabetes [facility] Found to be dehydrated with mild renal failure which resolved once she was rehydrated. Renal sonogram no obstruction, echocardiogram normal ejection fraction, venous Doppler no DVT. [facility] with her usual medications. Basic metabolic profile to be drawn on the Time Spent with Patient Time attestation: Total time spent providing and/or coordinating discharge services: 35 minutes Exam Narrative: Exam Narrative: condition on discharge blood pressure 154/60 pulse 60 sat 100% on room air afebrile lungs clear CV regular rate rhythm extremities without edema neuro alert but pleasantly confused and nonambulatory she was back to her baseline stable for discharge [facility] to the [facility] for [facility] care. Discharge Plan Discharge Attending physician on discharge: Jason Underwood Consulting providers: Breezy Garcia ; Goldy Guzman ; Vinnie Cagle ; Mine Sidhu ; Monroe Kessler ; Vitaliy Guzman V. Discharging Clinician: Jason Underwood Patient Disposition: [place] Skilled Nursing/Asst Living Activity: as tolerated Diet: diabetic and low sodium Patient Instructions: Antibiotic Form, COPD (Chronic Obstructive Pulmonary Disease) (DC), Altered Mental Status (GEN) Stand Alone Forms: General Discharge Information Follow-up/Referrals: Breezy Garcia MD [Physician] - 2 Weeks Discharge Medications: Kiki
== END 2019-12-24 17:24 | DRG 682 ==
LOC: ANHED 13:35 → ANH3MEDSUR 15:47
PROVIDERS: Internal Medicine; Physician Assistant; Admitting Provider Internal Medicine; Emergency Provider Emergency Medicine; Visit Provider Internal Medicine
DX: N17.9 Acute kidney failure, unspecified (principal); G93.41 Metabolic encephalopathy; J96.01 Acute respiratory failure with hypoxia; J96.02 Acute respiratory failure with hypercapnia; Z68.41 Body mass index [BMI] 40.0-44.9, adult; Z20.828 Contact with and (suspected) exposure to other viral communicable diseases; E66.01 Morbid (severe) obesity due to excess calories; E86.0 Dehydration; D64.9 Anemia, unspecified; I10 Essential (primary) hypertension; J44.9 Chronic obstructive pulmonary disease, unspecified; E78.5 Hyperlipidemia, unspecified; F17.210 Nicotine dependence, cigarettes, uncomplicated; E11.319 Type 2 diabetes mellitus with unspecified diabetic retinopathy without macular edema; H54.40 Blindness, one eye, unspecified eye; N32.81 Overactive bladder; Z87.11 Personal history of peptic ulcer disease; Z90.49 Acquired absence of other specified parts of digestive tract
CPT/HCPCS: 36415; 36600; 70450; 70551; 71045; 76775; 80048; 80053; 80069; 80307; 81003; 82375; 82550; 82607; 82728; 82746; 82805; 83036; 83050; 83540; 83550; 83605; 83735; 83880; 84443; 85025; 85027; 87635; 93005; 93880; 93970; 94640; 96360; 96361; 97110; 97116; 97161; 97165; 97530; 97535; 99285; A9270; C8929; C9803; G0378; J1650; J7030; Q9957; U0003

== ENCOUNTER 2020-01-17 10:19 | Emergency (ER) | payer MEDICARE, SELFPAY ==
[2020-01-17] VITALS (19 sets, daily range): BP systolic 98–163; BP diastolic 46–100; PULSE 68–96; RESP 13–20; TEMP 36.3; O2SAT 85–100
--- NOTE | ~2020-01-17 | XR_ITS ---
EXAMINATION: XR chest 1V portable DATE: 01/17/2020 11:12 INDICATION: Cough. TECHNIQUE: A single frontal view of the chest was obtained. COMPARISON: Chest single view 12/20/2019, chest CT 06/29/2012 FINDINGS: There are airspace opacities at the lung bases No pleural effusion or pneumothorax. The hea rt size is normal. IMPRESSION: 1. Airspace opacities at the lung bases with interval improvement, consistent with atelectasis versus pneumonia. Reviewed, dictated and finalized at location A. ARE OFFICER IMPRESSION: 1. Airspace opacities at the lung bases with interval improvement, consistent w ith atelectasis versus pneumonia.
--- NOTE | 2020-01-17 10:24 | ED.GENADULT ---
HPI - General Adult General Chief complaint: Weakness <Scarlet Villalta PA-C - Last Filed: 01/17/20 21:42> Stated complaint: WEAKNESS <Scarlet Villalta PA-C - Last Filed: 01/17/20 21:42> Source: patient, EMS and other (home health aide) <Scarlet Villalta PA-C - Last Filed: 01/17/20 21:42> Mode of arrival: EMS <Scarlet Villalta PA-C - Last Filed: 01/17/20 21:42> Limitations: altered mental status <Scarlet Villalta PA-C - Last Filed: 01/17/20 21:42> History of Present Illness HPI narrative: EMS was called today when home care scheduler came to visit patient and found her to be weaker. She called 911. Patient was just released from [facility] for physical rehab, report from EMS is that she had a negative Covid test prior to discharge. Home health worker reports that the patient is unable to walk about her house, she has a new cough and just seems generally more weak. Patient is somewhat confused, she does know where she is here at this hospital she does not know what year it is or what month it is. She told me that she does walk about her house and is able to care for self, and that told me she has only sat in her chair since being discharged. We are calling the rehab facility to find out if the patient did have a negative Covid as she is also on a dexamethasone course per her MAR <Scarlet Villalta PA-C - Last Filed: 01/17/20 21:42> Onset (ago): day(s) <Scarlet Villalta PA-C - Last Filed: 01/17/20 21:42> Associated symptoms: denies other symptoms <MARILUZ South Last Filed: 01/17/20 21:42> Treatments prior to arrival: none <MARILUZ South Last Filed: 01/17/20 21:42> Related Data Home medications: Home Medications Medication Instructions Recorded Confirmed allopurinol 100 mg PO DAILY 01/17/20 01/17/20 aspirin [Adult Aspirin EC Low 81 mg PO DAILY 01/17/20 01/17/20 Strength] atorvastatin 20 mg PO DAILY 01/17/20 01/17/20 chlorthalidone 25 mg PO DAILY 01/17/20 01/17/20 cholecalciferol (vitamin D3) 25 mcg PO DAILY 01/17/20 01/17/20 furosemide 20 mg PO DAILY 01/17/20 01/17/20 furosemide 40 mg PO DAILY 01/17/20 01/17/20 gabapentin 300 mg PO TID 01/17/20 01/17/20 glimepiride 1 mg PO DAILY 01/17/20 01/17/20 insulin degludec [Tresiba 14 unit SUBCUT ACINSULIN 01/17/20 01/17/20 FlexTouch U-100] lisinopril 40 mg PO DAILY 01/17/20 01/17/20 rfuhwygdzoyn-gzr-kxys-FA-vit K 1 tablet PO DAILY 01/17/20 01/17/20 [Adults Multivitamin] oxybutynin chloride 5 mg PO DAILY 01/17/20 01/17/20 pantoprazole 20 mg PO QAM 01/17/20 01/17/20 <Scarlet Villalta PA-C - Last Filed: 01/17/20 21:42> Allergies/adverse reactions: Allergies Allergy/AdvReac Type Severity Reaction Status Date / Time No Known Allergies Allergy Unknown Unverified 11/16/15 20:15 <Scarlet Villalta PA-C - Last Filed: 01/17/20 21:42> Review of Systems Review of Systems: All systems reviewed & are unremarkable except as noted in HPI and below <Scarlet Villalta PA-C - Last Filed: 01/17/20 21:42> [facility] Past Medical History Medical History: Medical History (Updated 01/18/20 @ 01:54 by Luis Eduardo Marrero MD) TIMOTEO (acute kidney injury) Anemia Chronic kidney disease COPD (chronic obstructive pulmonary disease) DM type 2 (diabetes mellitus, type 2) Essential hypertension Hepatitis Hyperlipidemia Metabolic encephalopathy OAB (overactive bladder) Obesity PUD (peptic ulcer disease) <Scarlet Villalta PA-C - Last Filed: 01/17/20 21:42> Surgical History Surgical History: Surgical History (Updated 01/18/20 @ 01:22 by Luis Eduardo Marrero MD) History of bladder surgery <Scarlet Villalta PA-C - Last Filed: 01/17/20 21:42> Family History Family History: Family History (Updated 10/02/15 @ 23:19 by DOCTOR UNKNOWN) Sibling Family history of diabetes mellitus in first degree relative Family history of human immunodeficiency virus infection Other Hypertension <
[2020-01-17 10:30] LABS: Glucose Point of Care 133 (65-105)
--- NOTE | 2020-01-17 10:31 | ECG_ITS ---
Measurements Intervals Vaughn Rate: 75 P: ME: 0 QRS: -17 QRSD: 76 T: 4 QT: 359 QTc: 401 Interpretive Statements SINUS RYTHM VENTRICULAR PREMATURE COMPLEX LOW QRS VOLTAGE IN PRECORDIAL LEADS POOR R WAVE PROGRESSION, CONSIDER ANTERIOR INFARCT BASELINE ARTIFACT- I, II, III, AVR, AVL, AVF, V1-V6 ABNORMAL ECG Electronically Signed On 01-17-2020 11:37:34 [employer] ORDER FILLER by Monroe Kessler D.O.
[2020-01-17 10:57] LABS: Basophils Percent Auto 0.1 % (0.2-1.2); Eosinophils Percent Auto 0.6 % (0-4.4); Hemoglobin 8.6 g/dL (12.0-15.0); Immature Granulocyte Absolute 0.13 K/mm3 (0.00-0.031); Immature Granulocyte Percent A 1.9 % (0-0.5); Lymphocytes Absolute Auto 1.23 K/mm3 (0.9-3.2); Lymphocytes Percent Auto 17.5 % (18.3-44.2); Mean Corpuscular HGB Conc 31.9 g/dl (32-36); Mean Corpuscular Hemoglobin 29.4 pg (26-34); Mean Corpuscular Volume 92.2 fl (80-100); Mean Platelet Volume 9.9 fl (7.4-10.4); Monocytes Absolute Auto 0.4 K/mm3 (0.1-0.6); Monocytes Percent Auto 6.3 % (2.6-8.5); Neutrophils Absolute Auto 5.2 K/mm3 (1.3-6.7); Neutrophils Percent Auto 73.6 % (45.5-73.1); Platelet Count Result 236 k/mm3 (150-375); Red Blood Count 2.93 M/mm3 (4.2-5.4)
[2020-01-17 11:08] LABS: Alanine Aminotransferase 38 U/L (4-35); Albumin Level 3.1 g/dL (3.5-5.1); Alkaline Phosphatase 139 U/L (38-126); Anion Gap 8 mmol/L (8-16); Aspartate Amino Transferase 35 U/L (14-36); Bilirubin,Total 0.2 mg/dL (0.2-1.3); Blood Urea Nitrogen 115 mg/dL (7-17); Calcium 8.3 mg/dL (8.4-10.2); Carbon Dioxide 29 mmol/L (22-30); Chloride 96 mmol/L (98-107); Estimated CRCL calculation 18 ml/min; Estimated Glomerular Filt Rate 13; Glucose 107 mg/dL (65-105); Potassium 3.6 mmol/L (3.4-5.0); Sodium 133 mmol/L (137-145)
[2020-01-17 11:19] LABS: Add Urine Microscopic? YES; Appearance Urine Cloudy (Clear); Bacteria Urine 4+ /hpf; Bilirubin Urine Negative (Negative); Blood Urine Negative (Negative); Glucose Urine UA Negative (Negative); Ketones Urine Negative (Negative); Leukocyte Esterase Ur 2+ LEU/UL (Negative); Mucus Urine Rare /lpf; Nitrate Urine Negative (Negative); Protein Urine 1+ mg/dL (Negative); RBC Urine 0-2 /hpf (0-2); Specific Grav Ur 1.011 (1.001-1.035); Squamous Epithelial Cell Urine Rare /hpf (Few); Urobilinogen Urine Negative mg/dL (<2.0); WBC Urine 16-20 /hpf
[2020-01-17 11:27] LABS: Color Urine Yellow (Yellow)
--- NOTE | 2020-01-17 11:31 | PC.NURSE ---
spoke with [facility] and staff confirmed that pt was Covid + on 12/31/19. pt was not re-tested prior to d/c home on mon01/15/20. pt was d/c home per family request. pt was d/c with home o2 but pt was not found on o2 by ems.
[2020-01-17 12:04] LABS: Alveolar/Arterial O2 Gradient 60.2 mmHg; Base Excess ABG -1.4 mEq/l (+/-2.0); Fractional Inspired Oxygen 28 %; HCO3 ABG 23.7 mEq/l (22.0-26.0); Oxygen Content ABG 12.7 %vol (16.0-22.0); Oxygen Saturation ABG 96.8 % (95.0-100.0); Oxyhemoglobin 95.7 % THb (90.0-100.0); PCO2 ABG 41.4 mmHg (35.0-45.0); PO2 ABG 90.6 mmHg (80.0-100.0); PO2 FiO2 Ratio Arterial Blood 3.24 %; Total Hemoglobin 9.3 g/dL (12.0-18.0); pH ABG 7.376 (7.350-7.450)
[2020-01-17 12:05] LABS: Device NASAL CANNULA; Modified Allen's Test Pass; Site Drawn LEFT RADIAL
[2020-01-17] MEDS: SODIUM CHLORIDE 0.9% IV 1,000 ML 999 ML IV CONT (12:51)
--- NOTE | 2020-01-17 16:10 | PC.NURSE ---
[facility] declined transfer to [facility] ems accepted transfer to [facility] ETA 1700 Trip # [id number]
--- NOTE | 2020-01-17 16:32 | PCCCNOTE ---
Spoke with Galen, patient's nephew, and updated him on the plan to transfer the patient to [place]. He agrees with POC
== END 2020-01-17 17:44 | disposition short-term general hospital (02) ==
PROVIDERS: Physician Assistant; Emergency Provider Emergency Medicine; PCP Internal Medicine
DX: N39.0 Urinary tract infection, site not specified (principal); R41.0 Disorientation, unspecified; E11.22 Type 2 diabetes mellitus with diabetic chronic kidney disease; N18.9 Chronic kidney disease, unspecified; I12.9 Hypertensive chronic kidney disease with stage 1 through stage 4 chronic kidney disease, or unspecified chronic kidney disease; D64.9 Anemia, unspecified; Z79.82 Long term (current) use of aspirin; Z79.4 Long term (current) use of insulin; E78.5 Hyperlipidemia, unspecified; G93.41 Metabolic encephalopathy; N32.81 Overactive bladder; Z87.11 Personal history of peptic ulcer disease; Z87.891 Personal history of nicotine dependence; Z86.19 Personal history of other infectious and parasitic diseases
CPT/HCPCS: 36415; 36600; 71045; 80053; 81001; 82805; 85025; 87040; 87077; 87086; 87088; 87186; 93005; 96360; 96365; 99285; J0696; J7030

== ENCOUNTER 2020-01-17 18:23 | Inpatient (IN) | payer MEDICARE, MEDICAID, SELFPAY ==
[2020-01-17 18:25] VITALS: BP 111/50; PULSE 78; RESP 20; TEMP 36.4; O2SAT 99; BMI 40.1
--- NOTE | 2020-01-17 18:25 | ADMGEN ---
This patient, Sherrie Muniz, was admitted to 2nd Floor Room 207-2. Patient/family oriented to hospital policies and general routines including ID bracelet, bed and alarms, visiting hours, pain management, procedures, bathroom and other care routines, personal items, smoking policy, room service/diet, and visiting hours. Information on how to activate the Rapid Response Team has been discussed. Patient/Family are encouraged to report perceived risks to care and to ask questions if they do not understand what they are told or what they should do.
[2020-01-17 19:20] VITALS: O2SAT 99
[2020-01-17] MEDS: SODIUM CHLORIDE 0.9% IV 1,000 ML 125 ML IV CONT (20:14)
[2020-01-17 21:18] LABS: Glucose Point of Care 100 (65-105)
[2020-01-17 23:09] VITALS: O2SAT 90
[2020-01-17] MEDS: INSULIN GLARGINE (*BKC) 100 UNITS/ML SUB-Q (23:46)
[2020-01-18] VITALS: BP 109/52; PULSE 81; RESP 18; TEMP 36.6; O2SAT 90
--- NOTE | 2020-01-18 01:08 | PM.IMHP ---
H&P: HPI History of Present Illness Date/Time: 01/18/20 01:08 Chief complaint: UTI Narrative: 69 year old woman with a history of type 2 diabetes, chronic kidney disease, COPD, and a recent Klebsiella UTI transferred from [facility] for altered mental status, and a UTI. She was found lethargic and confused by her home health caregiver today. She was diagnosed with COVID 19 on 12/30 and had left AMA from a rehab center a few days ago. Patient denies vomiting, abdominal pain, dysuria, chest pain, shortness of breath or hematuria. Review of Systems Constitutional: Constitutional: Reports fatigue, Reports poor appetite and Reports weakness Eyes: Eyes: Denies change in vision, Denies eye discharge and Denies irritation ENT: Denies facial pain, Denies nasal congestion, Denies nasal discharge, Denies sore throat and Denies throat swelling Cardiovascular: Cardiovascular: Denies chest pain, Denies rapid heart rate and Denies leg edema Respiratory: Respiratory: Denies chest congestion, Denies cough, Denies hemoptysis and Denies dyspnea Gastrointestinal: Gastrointestinal: Denies abdominal pain, Denies diarrhea, Denies nausea, Denies vomiting and Denies hematemesis Genitourinary: Genitourinary: Denies nocturia, Denies dysuria and Denies urinary urgency Musculoskeletal: Musculoskeletal: Denies back pain, Denies arthralgias and Denies joint swelling Integumentary/Breasts: Skin/Breast: Denies rash and Reports wounds ( On buttocks. Chronic skin changes on her lower legs) Neurologic: Denies Abnormal speech present, Denies vertigo, Denies dizziness, Denies syncope, Denies focal weakness, Denies numbness and Reports weakness Hematologic/Lymphatic: Hematologic/Lymphatic: Denies easy bleeding and Denies easy bruising Allergic/Immunologic: Allergic/Immunologic: Denies urticaria, Denies lip swelling and Denies throat swelling [facility] Past Medical History Medical History (Updated 01/18/20 @ 01:54 by Luis Eduardo Marrero MD) TIMOTEO (acute kidney injury) Anemia Chronic kidney disease COPD (chronic obstructive pulmonary disease) DM type 2 (diabetes mellitus, type 2) Essential hypertension Hepatitis Hyperlipidemia Metabolic encephalopathy OAB (overactive bladder) Obesity PUD (peptic ulcer disease) Surgical History Surgical History (Updated 01/18/20 @ 01:22 by Luis Eduardo Marrero MD) History of bladder surgery Family History Family History (Updated 10/02/15 @ 23:19 by DOCTOR UNKNOWN) Sibling Family history of diabetes mellitus in first degree relative Family history of human immunodeficiency virus infection Other Hypertension Social History Social History Smoking status: Former smoker Tobacco type: cigarettes Alcohol intake: never Substance use: never Gender identity (if verbalized by the patient): Female Sexual Orientation (if Verbalized by the Patient): Straight or Heterosexual Spiritual care concerns: No Meds Home Medications and Allergies Home Medications Medication Instructions Recorded Confirmed Type allopurinol 100 mg PO DAILY 01/17/20 01/17/20 History aspirin [Adult Aspirin EC Low 81 mg PO DAILY 01/17/20 01/17/20 History Strength] atorvastatin 20 mg PO DAILY 01/17/20 01/17/20 History chlorthalidone 25 mg PO DAILY 01/17/20 01/17/20 History cholecalciferol (vitamin D3) 25 mcg PO DAILY 01/17/20 01/17/20 History furosemide 20 mg PO DAILY 01/17/20 01/17/20 History furosemide 40 mg PO DAILY 01/17/20 01/17/20 History gabapentin 300 mg PO TID 01/17/20 01/17/20 History glimepiride 1 mg PO DAILY 01/17/20 01/17/20 History insulin degludec [Tresiba 14 unit SUBCUT ACINSULIN 01/17/20 01/17/20 History FlexTouch U-100] lisinopril 40 mg PO DAILY 01/17/20 01/17/20 History druozzfilvmn-nwh-allk-FA-vit K 1 tablet PO DAILY 01/17/20 01/17/20 History [Adults Multivitamin] oxybutynin chloride 5 mg PO DAILY 01/17/20 01/17/20 History pa
[2020-01-18] MEDS: SODIUM CHLORIDE 0.9% IV 1,000 ML 125 ML IV CONT ×3 (04:56→21:41)
[2020-01-18 08:00] VITALS: BP 108/65; PULSE 98; RESP 20; TEMP 36.5; O2SAT 93
[2020-01-18 08:14] LABS: Glucose Point of Care 55 (65-105)
[2020-01-18 09:18] LABS: Glucose Point of Care 96 (65-105)
[2020-01-18] MEDS: ATORVASTATIN 10 MG TABLET 20 MG PO (09:35)
[2020-01-18] MEDS: GABAPENTIN 300 MG CAPSULE PO ×3 (09:35→16:53)
[2020-01-18] MEDS: ENOXAPARIN 40 MG/0.4 ML SYRINGE SUB-Q (09:35)
[2020-01-18] MEDS: FUROSEMIDE 20 MG TABLET PO (09:36)
[2020-01-18] MEDS: allopurinoL 100 MG TABLET PO (09:36)
[2020-01-18] MEDS: MULTIVITAMINS THERAPEUTIC TAB (*BKC) 1 TABLET PO (09:36)
[2020-01-18] MEDS: ASPIRIN 81 MG ENTERIC TABLET PO (09:36)
[2020-01-18] MEDS: PANTOPRAZOLE SOD SESQUIHYDRATE 20 MG TAB PO (09:36)
[2020-01-18] MEDS: OXYBUTYNIN CHLORIDE 5 MG TABLET PO (09:36)
[2020-01-18] MEDS: GLIMEPIRIDE 1 MG TABLET PO (09:37)
[2020-01-18] MEDS: CHLORTHALIDONE 25 MG TABLET PO (09:44)
[2020-01-18 11:54] LABS: Glucose Point of Care 98 (65-105)
--- NOTE | 2020-01-18 13:43 | PM.IMHP ---
H&P: HPI History of Present Illness Date/Time: 01/18/20 13:43 Chief complaint: UTI Narrative: Sherrie Muniz is a 69 year old female. Patient is confused and not a good historian. See below for ER report. EMS was called today when home care scheduler came to visit patient and found her to be weaker. She called 911. Patient was just released from [facility] for physical rehab, report from EMS is that she had a negative Covid test prior to discharge. Home health worker reports that the patient is unable to walk about her house, she has a new cough and just seems generally more weak. Patient is somewhat confused, she does know where she is here at this hospital she does not know what year it is or what month it is. She told me that she does walk about her house and is able to care for self, and that told me she has only sat in her chair since being discharged. We are calling the rehab facility to find out if the patient did have a negative Covid as she is also on a dexamethasone course per her MAR Review of Systems Review of Systems: ROS unobtainable: Yes unobtainable due to mental status ( patient is alert and oriented to self only) PMFSH Past Medical History Medical History TIMOTEO (acute kidney injury) Anemia Chronic kidney disease COPD (chronic obstructive pulmonary disease) DM type 2 (diabetes mellitus, type 2) Essential hypertension Hepatitis Hyperlipidemia Metabolic encephalopathy OAB (overactive bladder) Obesity PUD (peptic ulcer disease) Surgical History Surgical History History of bladder surgery Family History Family History Sibling Family history of diabetes mellitus in first degree relative Family history of human immunodeficiency virus infection Other Hypertension Social History Social History Smoking status: Former smoker Tobacco type: cigarettes Alcohol intake: never Substance use: never Gender identity (if verbalized by the patient): Female Sexual Orientation (if Verbalized by the Patient): Straight or Heterosexual Spiritual care concerns: No Meds Home Medications and Allergies Home Medications Medication Instructions Recorded Confirmed Type allopurinol 100 mg PO DAILY 01/17/20 01/17/20 History aspirin [Adult Aspirin EC Low 81 mg PO DAILY 01/17/20 01/17/20 History Strength] atorvastatin 20 mg PO DAILY 01/17/20 01/17/20 History chlorthalidone 25 mg PO DAILY 01/17/20 01/17/20 History cholecalciferol (vitamin D3) 25 mcg PO DAILY 01/17/20 01/17/20 History furosemide 20 mg PO DAILY 01/17/20 01/17/20 History furosemide 40 mg PO DAILY 01/17/20 01/17/20 History gabapentin 300 mg PO TID 01/17/20 01/17/20 History glimepiride 1 mg PO DAILY 01/17/20 01/17/20 History insulin degludec [Tresiba 14 unit SUBCUT ACINSULIN 01/17/20 01/17/20 History FlexTouch U-100] lisinopril 40 mg PO DAILY 01/17/20 01/17/20 History pnkarcblimun-jhs-ratm-FA-vit K 1 tablet PO DAILY 01/17/20 01/17/20 History [Adults Multivitamin] oxybutynin chloride 5 mg PO DAILY 01/17/20 01/17/20 History pantoprazole 20 mg PO QAM 01/17/20 01/17/20 History Allergies Allergy/AdvReac Type Severity Reaction Status Date / Time No Known Allergies Allergy Unknown Unverified 11/16/15 20:15 Vital Signs Vital Signs - 24 hr 01/17/20 18:25 01/17/20 19:20 01/17/20 23:09 Temperature 97.6 F Pulse Rate 78 Respiratory Rate 20 Blood Pressure 111/50 L Pulse Oximetry 99 99 90 01/18/20 00:00 01/18/20 08:00 Temperature 97.8 F 97.7 F Pulse Rate 81 98 Respiratory Rate 18 20 Blood Pressure 109/52 L 108/65 Pulse Oximetry 90 93 Exam Const: General: no acute distress, alert and awake Nutritional Appearance: obese Resp: Effort & Inspection: normal respiratory effort Aus
[2020-01-18 14:21] LABS: Immature Reticulocyte Fraction 17.5 % (2.0-16.52); Reticulocyte Hemoglobin Conten 34.3 pg (28.0-35.0); Reticulocyte Percent 2.35 % (0.50-1.50); Reticulocytes Absolute 0.07 M/mm3 (0.02-0.1)
[2020-01-18 15:42] LABS: Ferritin 209 ng/mL (8-252); Iron 47 ug/dL (50-170); Percent Iron Saturation 26 % (12-57); Vitamin B12 1943 pg/mL (193-986)
[2020-01-18 15:45] LABS: Folic Acid > 20.0 ng/mL (8.6->20)
[2020-01-18 15:48] LABS: Thyroid Stimulating Hormone Reflex 0.52 u/IU/mL (0.36-3.74)
[2020-01-18 16:00] VITALS: BP 106/52; PULSE 73; RESP 16; TEMP 36.3; O2SAT 96
[2020-01-18 16:34] LABS: Glucose Point of Care 189 (65-105)
[2020-01-18 20:00] VITALS: O2SAT 97
[2020-01-18 20:10] LABS: Glucose Point of Care 270 (65-105)
--- NOTE | 2020-01-18 22:23 | PC.NURSE ---
pt does not want to stay in bed, up to commode then chair, feet elevated, given glucerna shake, fluids running
--- NOTE | 2020-01-18 22:34 | PC.NURSE ---
pt is confused, asks to be taken to her girlfriends room, reoriented, wants feet put down, iv running
[2020-01-19] VITALS: BP 152/72; PULSE 78; RESP 20; TEMP 36.8; O2SAT 96
--- NOTE | 2020-01-19 03:38 | PC.NURSE ---
States back and bottom is sore from sitting. Using Saristeady to transfer patient to BSC, patient incontinent of urine in chair and on floor. Voided in BSC then transferred to bed. Assisted to lie in bed by 2 staff. Patient positioned on left side with pillows behind back and with one pillow placed under each lower leg to reduce edema. Head of bed up 20 degrees for comfort. patient tolerated activity well.
--- NOTE | 2020-01-19 04:57 | PC.NURSE ---
Patient has had no stool this shift.
[2020-01-19 05:27] LABS: Hematocrit 26.6 % (35.0-42.0); Hemoglobin 8.3 g/dL (11.7-13.8); Mean Corpuscular HGB Conc 31.2 g/dL (32.0-36.0); Mean Corpuscular Hemoglobin 29.3 pg (27.0-31.0); Mean Platelet Volume 9.7 fl (9.2-11.8); Platelet Count Result 244 K/mm3 (150-420); Red Blood Count 2.83 M/mm3 (4.20-5.40); Red Cell Distribution Width 15.3 % (11.6-14.4); White Blood Count 4.5 K/mm3 (4.8-10.8)
[2020-01-19 05:35] LABS: Anion Gap 7 mmol/L (8-16); Blood Urea Nitrogen 77 mg/dL (7-18); Calcium 8.8 mg/dL (8.5-10.1); Carbon Dioxide 27 mmol/L (21-32); Chloride 107 mmol/L (98-108); Estimated CRCL calculation 29 ml/min; Estimated Glomerular Filt Rate 26; Glucose 125 mg/dL (70-99); Osmolality Calculated 316 mOsm/kg (285-295); Potassium 3.8 mmol/L (3.5-5.1); Sodium 141 mmol/L (136-145)
--- NOTE | 2020-01-19 06:08 | PC.NURSE ---
Found patient up standing by chair, IV intact. Ambulating with environmental support. Directed to sit in chair and assisted to get into chair by two staff. Patient able to stand using walker with no problem, provided benoit-care and adult brief put on by two nurses. Returned to chair and feet elevated on foot rest. Patient attempted to scoot down to sit on foot rest and nurse directed patient to remain in chair, no foot rest.
[2020-01-19] MEDS: SODIUM CHLORIDE 0.9% IV 1,000 ML 125 ML IV CONT ×4 (06:26→22:45)
--- NOTE | 2020-01-19 06:54 | PC.NURSE ---
Patient scooted to footrest and was trying to crawl out of chair, nurse was in room and patient would not stop. With assist of two nurses, patient scooted back in chair, foot rest put down and patient got up using walker and ambulated to bed and bed alarm engaged.
[2020-01-19 07:52] LABS: Glucose Point of Care 116 (65-105)
[2020-01-19 08:00] VITALS: BP 121/40; PULSE 62; RESP 18; TEMP 36.7; O2SAT 97
[2020-01-19] MEDS: ASPIRIN 81 MG ENTERIC TABLET PO (08:52)
[2020-01-19] MEDS: ENOXAPARIN 40 MG/0.4 ML SYRINGE SUB-Q (08:52)
[2020-01-19] MEDS: MULTIVITAMINS THERAPEUTIC TAB (*BKC) 1 TABLET PO (08:52)
[2020-01-19] MEDS: OXYBUTYNIN CHLORIDE 5 MG TABLET PO (08:52)
[2020-01-19] MEDS: GABAPENTIN 300 MG CAPSULE PO ×3 (08:52→16:44)
[2020-01-19] MEDS: allopurinoL 100 MG TABLET PO (08:52)
[2020-01-19] MEDS: ATORVASTATIN 10 MG TABLET 20 MG PO (08:52)
[2020-01-19] MEDS: PANTOPRAZOLE SOD SESQUIHYDRATE 20 MG TAB PO (08:52)
[2020-01-19] MEDS: FUROSEMIDE 20 MG TABLET PO (08:52)
[2020-01-19] MEDS: CHLORTHALIDONE 25 MG TABLET PO (08:52)
[2020-01-19] MEDS: GLIMEPIRIDE 1 MG TABLET PO (08:54)
--- NOTE | 2020-01-19 10:20 | PC.NURSE ---
Patient instructed to lie on sides to stay off of buttocks. Decub. Patient refuses, insists on sitting on side of bed.
--- NOTE | 2020-01-19 10:42 | PM.IMPN ---
Progress Note: A&P Assessment and Plan (1) DM type 2 (diabetes mellitus, type 2): Code(s): E11.9 - Type 2 diabetes mellitus without complications Status: Inactive Assessment and Plan: 01/18/2020 continue with home medications and ACHS Accu-Cheks, monitor for hypoglycemia, consistent carb diet 01/19/2020 glucose has been pretty well controlled, one reading of 270 another of 189 and the rest being under 125 without hypoglycemia (2) TIMOTEO (acute kidney injury): Code(s): N17.9 - Acute kidney failure, unspecified Status: Inactive Assessment and Plan: 01/18/2020 NS fluids at 125 mL/H, BUN creatinine 115/3.5, will monitor labs, avoid any nephrotoxic medications, lisinopril held 01/19/2020 continue with IV fluids, BUN creatinine 77/1.94, will continue to monitor (3) Anemia: Code(s): D64.9 - Anemia, unspecified Status: Inactive Assessment and Plan: 01/18/2020 H/H currently 8.6/27, will be monitoring, will transfuse if levels fall below 7 hemoglobin, performing anemia workup results pending 01/19/2020 H/H currently 8.3/26.6 (4) UTI (urinary tract infection): Code(s): N39.0 - Urinary tract infection, site not specified Status: Acute Assessment and Plan: 01/18/2020 currently on Rocephin, urine culture pending, will monitor urinary output 01/19/2020 continue Rocephin, urine culture shows E coli with sensitivity to follow, patient has had incontinent episodes urinary output is not accurate (5) Altered mental status: Code(s): R41.82 - Altered mental status, unspecified Status: Acute Assessment and Plan: 01/18/2020 anticipate this resolving as the urinary tract infection resolves, will check gabapentin level, Q shift neuro checks 01/19/2020 patient is alert and oriented today, gabapentin level not resulted yet as this is a send out lab, continue with neuro checks Subjective Date/time seen: 01/19/20 10:42 Today patient is better able to communicate. She says she is feeling much better today and that she does not remember much of yesterday. She denies any pains or issues. Review of Systems Constitutional: Constitutional: Reports no additional constitutional complaints Cardiovascular: Cardiovascular: Reports no additional cardiovascular complaints Respiratory: Respiratory: Reports no additional respiratory complaints Gastrointestinal: Gastrointestinal: Reports no additional gastrointestinal complaints Genitourinary: Genitourinary: Reports no additional female genitourinary complaints Exam Const: General: cooperative, comfortable and no acute distress Nutritional Appearance: obese Resp: Effort & Inspection: normal respiratory effort Auscultation: clear to auscultation bilaterally Cardio: Rate: regular rate Rhythm: regular rhythm Heart sounds: S1 normal heart sound present and S2 normal heart sound present Skin: General skin exam: lichenification (bilateral lower extremities) Neuro: General: oriented to person, oriented to place and oriented to time Cranial nerves: Yes CN's II-XII intact bilaterally (grossly intact) Cognition (Neuro): normal cognition Extrem: General: other (abrasion laterally to the left lower leg) Right lower extremity: edema Left lower extremity: edema Objective Data Vital Signs Vital Signs: Vital Signs - 24 hr 01/18/20 16:00 01/18/20 20:00 01/19/20 00:00 Temperature 97.4 F L 98.3 F Pulse Rate 73 78 Respiratory Rate 16 20 Blood Pressure 106/52 L 152/72 H Pulse Oximetry 96 97 96 01/19/20 08:00 Temperature 98.1 F Pulse Rate 62 Respiratory Rate 18 Blood Pressure 121/40 L Pulse Oximetry 97 Intake/Output Intake/Output: Intake & Output 01/16/20 01/17/20 01/18/20 01/19/20 23:59 23:59 23:59 23:59 Intake Total 91.667 3978.333 1590 Output Total 300 100 Balance 91.667 3678.333 1490 Meds/Results Medications: Active Medications Generic Name Dose Route Start Last Admin Trade Name F
[2020-01-19 11:53] LABS: Glucose Point of Care 124 (65-105)
[2020-01-19 16:00] VITALS: BP 116/47; PULSE 70; TEMP 36.5; O2SAT 100
[2020-01-19 16:35] LABS: Glucose Point of Care 154 (65-105)
--- NOTE | 2020-01-19 17:50 | PC.NURSE ---
Instructed patient to lie in bed on side. Give buttocks a rest, decub. Patient refuses, sitting in recliner.
[2020-01-19 21:37] LABS: Glucose Point of Care 212 (65-105)
[2020-01-19] MEDS: BENZONATATE 100 MG CAPSULE PO (22:45)
[2020-01-20] VITALS: BP 141/59; PULSE 66; RESP 12; TEMP 36.7; O2SAT 96
[2020-01-20 07:25] VITALS: BP 128/58; PULSE 89; RESP 18; TEMP 36.6; O2SAT 98
[2020-01-20 07:50] LABS: Glucose Point of Care 113 (65-105)
[2020-01-20 08:30] LABS: Hematocrit 30.2 % (35.0-42.0); Hemoglobin 9.1 g/dL (11.7-13.8); Mean Corpuscular HGB Conc 30.1 g/dL (32.0-36.0); Mean Corpuscular Volume 99.7 fL (78.0-102.0); Mean Platelet Volume 10.2 fl (9.2-11.8); Platelet Count Result 230 K/mm3 (150-420); Red Blood Count 3.03 M/mm3 (4.20-5.40); Red Cell Distribution Width 15.5 % (11.6-14.4); White Blood Count 4.5 K/mm3 (4.8-10.8)
[2020-01-20] MEDS: FUROSEMIDE 20 MG TABLET PO (08:30)
[2020-01-20] MEDS: CHLORTHALIDONE 25 MG TABLET PO (08:30)
[2020-01-20] MEDS: allopurinoL 100 MG TABLET PO (08:30)
[2020-01-20] MEDS: ATORVASTATIN 10 MG TABLET 20 MG PO (08:30)
[2020-01-20] MEDS: GABAPENTIN 300 MG CAPSULE PO ×3 (08:30→17:26)
[2020-01-20] MEDS: ASPIRIN 81 MG ENTERIC TABLET PO (08:31)
[2020-01-20] MEDS: OXYBUTYNIN CHLORIDE 5 MG TABLET PO (08:31)
[2020-01-20] MEDS: PANTOPRAZOLE SOD SESQUIHYDRATE 20 MG TAB PO (08:31)
[2020-01-20] MEDS: ENOXAPARIN 40 MG/0.4 ML SYRINGE SUB-Q (08:31)
[2020-01-20] MEDS: MULTIVITAMINS THERAPEUTIC TAB (*BKC) 1 TABLET PO (08:31)
[2020-01-20] MEDS: GLIMEPIRIDE 1 MG TABLET PO (08:32)
[2020-01-20] MEDS: FERROUS SULFATE 324 MG TABLET PO ×2 (08:32→17:27)
[2020-01-20 08:56] LABS: Anion Gap 10 mmol/L (8-16); Blood Urea Nitrogen 48 mg/dL (7-18); Calcium 8.3 mg/dL (8.5-10.1); Carbon Dioxide 23 mmol/L (21-32); Chloride 107 mmol/L (98-108); Estimated CRCL calculation 37 ml/min; Estimated Glomerular Filt Rate 34; Glucose 95 mg/dL (70-99); Osmolality Calculated 302 mOsm/kg (285-295); Potassium 4.5 mmol/L (3.5-5.1); Sodium 140 mmol/L (136-145)
[2020-01-20 12:02] LABS: Glucose Point of Care 151 (65-105)
--- NOTE | 2020-01-20 13:42 | PM.IMPN ---
Progress Note: A&P Assessment and Plan (1) DM type 2 (diabetes mellitus, type 2): Code(s): E11.9 - Type 2 diabetes mellitus without complications <Román CortezFlakita Mendez APN-C - Last Filed: 01/20/20 13:53> Status: Inactive <Román CortezBRIAN WatsonN-C - Last Filed: 01/20/20 13:53> Assessment and Plan: 01/18/2020 continue with home medications and ACHS Accu-Cheks, monitor for hypoglycemia, consistent carb diet 01/19/2020 glucose has been pretty well controlled, one reading of 270 another of 189 and the rest being under 125 without hypoglycemia 01/20/2020 no changes made to glucose control at this time but will continue to monitor, Dr. Marrero had found that the patient's Tresiba had a 3 time per day schedule from home, discussed with pharmacist Maida and Dr. Paredes with the outcome being 1 time a day use. <Román DiegoFlakita Mendez APN-C - Last Filed: 01/20/20 13:53> (2) TIMOTEO (acute kidney injury): Code(s): N17.9 - Acute kidney failure, unspecified <Román CortezFlakita Mendez DEPUTY MANAGER-C - Last Filed: 01/20/20 13:53> Status: Inactive <Román CortezFlakita Mendez APN-C - Last Filed: 01/20/20 13:53> Assessment and Plan: 01/18/2020 NS fluids at 125 mL/H, BUN creatinine 115/3.5, will monitor labs, avoid any nephrotoxic medications, lisinopril held 01/19/2020 continue with IV fluids, BUN creatinine 77/1.94, will continue to monitor 01/20/2020 improved BUN creatinine 48/1.54, IV fluids stopped this time as patient is taking fluids by mouth well <Román DiegoFlakita Mendez APN-C - Last Filed: 01/20/20 13:53> (3) Anemia: Code(s): D64.9 - Anemia, unspecified <Román DiegoFlakita Mendez DEPUTY MANAGER-C - Last Filed: 01/20/20 13:53> Status: Inactive <Román DiegoFlakita Mendez DEPUTY MANAGER-C - Last Filed: 01/20/20 13:53> Assessment and Plan: 01/18/2020 H/H currently 8.6/27, will be monitoring, will transfuse if levels fall below 7 hemoglobin, performing anemia workup results pending 01/19/2020 H/H currently 8.3/26.6 01/20/2020 H/H 9.1/30.2, appears to be iron deficient, started on ferrous sulfate <GOVIND PedrazaC - Last Filed: 01/20/20 13:53> (4) UTI (urinary tract infection): Code(s): N39.0 - Urinary tract infection, site not specified <Román Mendez APN-C - Last Filed: 01/20/20 13:53> Status: Acute <GOVIND PedrazaC - Last Filed: 01/20/20 13:53> Assessment and Plan: 01/18/2020 currently on Rocephin, urine culture pending, will monitor urinary output 01/19/2020 continue Rocephin, urine culture shows E coli with sensitivity to follow, patient has had incontinent episodes urinary output is not accurate 01/20/2020 day 3 of Rocephin, as of this time sensitivity not available <Román Mendez APN-C - Last Filed: 01/20/20 13:53> (5) Altered mental status: Code(s): R41.82 - Altered mental status, unspecified <Román Mendez APN-C - Last Filed: 01/20/20 13:53> Status: Acute <Román Mendez APN-C - Last Filed: 01/20/20 13:53> Assessment and Plan: 01/18/2020 anticipate this resolving as the urinary tract infection resolves, will check gabapentin level, Q shift neuro checks 01/19/2020 patient is alert and oriented today, gabapentin level not resulted yet as this is a send out lab, continue with neuro checks 01/20/2020 A&O to person and place, patient admits she is a little confused and forgets the reason she is in the hospital, continue as above <GOVIND PedrazaC - Last Filed: 01/20/20 13:53> Subjective Date/time seen: 01/20/20 13:42 Patient improved from first day she arrived here however she is still confused. Patient says that she is feeling a little bit better still cannot remember any part of events leading her to this facility. Patient denies any chest pain shortness of breath at this time no abdominal pain no bowel or bladder issues. Patient admits that her lower legs have neuropathy. <Román Mendez, ABILIO-C - Last Filed:
[2020-01-20 16:25] VITALS: BP 110/47; PULSE 65; RESP 18; TEMP 36.6; O2SAT 98
[2020-01-20 17:11] LABS: Glucose Point of Care 166 (65-105)
[2020-01-20 19:31] VITALS: BP 142/68; PULSE 78; RESP 18; TEMP 36.6; O2SAT 94
[2020-01-20 21:19] LABS: Glucose Point of Care 229 (65-105)
[2020-01-21] VITALS: BP 152/83; PULSE 74; RESP 20; TEMP 36.2; O2SAT 97
[2020-01-21 05:50] LABS: Hematocrit 27.8 % (35.0-42.0); Hemoglobin 8.4 g/dL (11.7-13.8); Mean Corpuscular HGB Conc 30.2 g/dL (32.0-36.0); Mean Corpuscular Hemoglobin 28.7 pg (27.0-31.0); Mean Corpuscular Volume 94.9 fL (78.0-102.0); Platelet Count Result 249 K/mm3 (150-420); Red Blood Count 2.93 M/mm3 (4.20-5.40); Red Cell Distribution Width 15.3 % (11.6-14.4); White Blood Count 4.5 K/mm3 (4.8-10.8)
[2020-01-21 06:05] LABS: Anion Gap 7 mmol/L (8-16); Blood Urea Nitrogen 37 mg/dL (7-18); Carbon Dioxide 28 mmol/L (21-32); Chloride 105 mmol/L (98-108); Estimated CRCL calculation 40 ml/min; Estimated Glomerular Filt Rate 38; Glucose 105 mg/dL (70-99); Osmolality Calculated 298 mOsm/kg (285-295); Potassium 4.4 mmol/L (3.5-5.1); Sodium 140 mmol/L (136-145)
[2020-01-21 07:25] VITALS: BP 144/65; PULSE 78; RESP 18; TEMP 36.4; O2SAT 99
[2020-01-21] MEDS: ACETAMINOPHEN 325 MG TABLET 650 MG PO (09:52)
[2020-01-21] MEDS: GABAPENTIN 300 MG CAPSULE PO ×3 (09:53→17:07)
[2020-01-21] MEDS: allopurinoL 100 MG TABLET PO (09:53)
[2020-01-21] MEDS: OXYBUTYNIN CHLORIDE 5 MG TABLET PO (09:53)
[2020-01-21] MEDS: MULTIVITAMINS THERAPEUTIC TAB (*BKC) 1 TABLET PO (09:53)
[2020-01-21] MEDS: ENOXAPARIN 40 MG/0.4 ML SYRINGE SUB-Q (09:53)
[2020-01-21] MEDS: ASPIRIN 81 MG ENTERIC TABLET PO (09:53)
[2020-01-21] MEDS: FUROSEMIDE 20 MG TABLET PO (09:53)
[2020-01-21] MEDS: CHLORTHALIDONE 25 MG TABLET PO (09:54)
[2020-01-21] MEDS: FERROUS SULFATE 324 MG TABLET PO ×2 (09:54→17:07)
[2020-01-21] MEDS: ATORVASTATIN 10 MG TABLET 20 MG PO (09:54)
[2020-01-21] MEDS: PANTOPRAZOLE SOD SESQUIHYDRATE 20 MG TAB PO (09:54)
[2020-01-21] MEDS: GLIMEPIRIDE 1 MG TABLET PO (10:00)
[2020-01-21 11:00] VITALS: O2SAT 99
[2020-01-21 11:10] VITALS: O2SAT 92
[2020-01-21 11:50] LABS: Glucose Point of Care 175 (65-105)
--- NOTE | 2020-01-21 12:23 | P.PN_ITS ---
Progress Note: A&P Assessment and Plan (1) Altered mental status: Code(s): R41.82 - Altered mental status, unspecified Status: Acute Assessment and Plan: * Possibly secondary to Covid versus pneumonia versus UTI versus metabolic encephalopathy versus acute kidney injury * Ammonia level pending * Chest x-ray indicates . Airspace opacities at the lung bases with interval improvement, consistent with atelectasis versus pneumonia. * UA with the growth of E. coli * Creatinine on admission 3.50 currently 1.39 * Treat underlying condition (2) Essential hypertension: Code(s): I10 - Essential (primary) hypertension Status: Inactive Assessment and Plan: * Blood pressure 144/65 stable * Patient home medication lisinopril 40 mg daily held due to kidney injury, continue Lasix 20 mg p.o. daily and Hygroton 25 mg daily * Will adjust medication as needed * Continue to monitor vital signs (3) DM type 2 (diabetes mellitus, type 2): Code(s): E11.9 - Type 2 diabetes mellitus without complications Status: Inactive Assessment and Plan: * Blood sugar 175 * Continue glimepiride 1 mg daily * Monitor blood sugars, with sliding scale and hypoglycemic protocol * Adjust medication as needed (4) TIMOTEO (acute kidney injury): Code(s): N17.9 - Acute kidney failure, unspecified Status: Inactive Assessment and Plan: * Acute on chronic * On admission patient's BUN 3.50 currently 1.39 improving (5) Metabolic encephalopathy: Code(s): G93.41 - Metabolic encephalopathy Status: Inactive Assessment and Plan: * History of metabolic cephalopathy and hepatitis * Ammonia level pending (6) UTI (urinary tract infection): Code(s): N39.0 - Urinary tract infection, site not specified Status: Acute Assessment and Plan: * UA with the growth of E. coli * Continue Rocephin * Sensitivity indicates sensitive to Rocephin (7) COPD (chronic obstructive pulmonary disease): Code(s): J44.9 - Chronic obstructive pulmonary disease, unspecified Status: Inactive Assessment and Plan: * Patient is current smoker started nicotine patch * Started Symbicort scheduled and as needed albuterol * Continue Tessalon Perles and guaifenesin (8) Anemia: Code(s): D64.9 - Anemia, unspecified Status: Inactive Assessment and Plan: * Iron deficiency anemia * Continue iron supplements * No active bleeding noted (9) Pneumonia: Code(s): J18.9 - Pneumonia, unspecified organism Status: Acute Assessment and Plan: * Chest x-ray indicates. Airspace opacities at the lung bases with interval improvement, consistent with atelectasis versus pneumonia. * Continue Rocephin * Blood culture preliminary reading no growth Review of Systems Review of Systems: ROS unobtainable: Yes unobtainable due to mental status Exam Narrative: Exam Narrative: GENERAL: Confused alert and orientated to self only in no apparent distress. HEAD: normocephalic, atraumatic. EYES: PERRL. Sclera clear/white. Vision is grossly intact. EARS: External ears normal, auditory canals clear and without drainage, TMs normal without perforation. Hearing grossly intact. NOSE: External nose normal with no obvious nasal discharge, nares without redness, no rhinorrhea. THROAT: Mucous membranes moist, posterior pharynx clear. NECK: Neck supple, non-tender without lymphadenopathy, masses or thyromegaly. CARDIOVASCULAR: Regular rate and rhythm without murmurs, gallops, or rubs.
--- NOTE | 2020-01-21 12:23 | WPDPN ---
Progress Note: A&P Assessment and Plan (1) Altered mental status: Code(s): R41.82 - Altered mental status, unspecified Status: Acute Assessment and Plan: Possibly secondary to Covid versus pneumonia versus UTI versus metabolic encephalopathy versus acute kidney injury Ammonia level pending Chest x-ray indicates . Airspace opacities at the lung bases with interval improvement, consistent with atelectasis versus pneumonia. UA with the growth of E. coli Creatinine on admission 3.50 currently 1.39 Treat underlying condition (2) Essential hypertension: Code(s): I10 - Essential (primary) hypertension Status: Inactive Assessment and Plan: Blood pressure 144/65 stable Patient home medication lisinopril 40 mg daily held due to kidney injury, continue Lasix 20 mg p.o. daily and Hygroton 25 mg daily Will adjust medication as needed Continue to monitor vital signs (3) DM type 2 (diabetes mellitus, type 2): Code(s): E11.9 - Type 2 diabetes mellitus without complications Status: Inactive Assessment and Plan: Blood sugar 175 Continue glimepiride 1 mg daily Monitor blood sugars, with sliding scale and hypoglycemic protocol Adjust medication as needed (4) TIMOTEO (acute kidney injury): Code(s): N17.9 - Acute kidney failure, unspecified Status: Inactive Assessment and Plan: Acute on chronic On admission patient's BUN 3.50 currently 1.39 improving (5) Metabolic encephalopathy: Code(s): G93.41 - Metabolic encephalopathy Status: Inactive Assessment and Plan: History of metabolic cephalopathy and hepatitis Ammonia level pending (6) UTI (urinary tract infection): Code(s): N39.0 - Urinary tract infection, site not specified Status: Acute Assessment and Plan: UA with the growth of E. coli Continue Rocephin Sensitivity indicates sensitive to Rocephin (7) COPD (chronic obstructive pulmonary disease): Code(s): J44.9 - Chronic obstructive pulmonary disease, unspecified Status: Inactive Assessment and Plan: Patient is current smoker started nicotine patch Started Symbicort scheduled and as needed albuterol Continue Tessalon Perles and guaifenesin (8) Anemia: Code(s): D64.9 - Anemia, unspecified Status: Inactive Assessment and Plan: Iron deficiency anemia Continue iron supplements No active bleeding noted (9) Pneumonia: Code(s): J18.9 - Pneumonia, unspecified organism Status: Acute Assessment and Plan: Chest x-ray indicates. Airspace opacities at the lung bases with interval improvement, consistent with atelectasis versus pneumonia. Continue Rocephin Blood culture preliminary reading no growth Review of Systems Review of Systems: ROS unobtainable: Yes unobtainable due to mental status Exam Narrative: Exam Narrative: GENERAL: Confused alert and orientated to self only in no apparent distress. HEAD: normocephalic, atraumatic. EYES: PERRL. Sclera clear/white. Vision is grossly intact. EARS: External ears normal, auditory canals clear and without drainage, TMs normal without perforation. Hearing grossly intact. NOSE: External nose normal with no obvious nasal discharge, nares without redness, no rhinorrhea. THROAT: Mucous membranes moist, posterior pharynx clear. NECK: Neck supple, non-tender without lymphadenopathy, masses or thyromegaly. CARDIOVASCULAR: Regular rate and rhythm without murmurs, gallops, or rubs. RESPIRATORY: Diminished breath sounds GASTROINTESTINAL: Abdomen soft, non-tender, nondistended. Bowel sounds are active. No hepato-splenomegaly, or palpable masses. No guarding. SKIN: warm, intact with no suspicious lesions or rash, good texture and turgor. Scaly discolored lower extremities NEURO: awake, alert, and oriented to person, place and time. There were no obvious focal neurologic abnormalities. Steady gait EXTREMITIES: Normal range of
[2020-01-21] MEDS: NICOTINE (*PBKC) 21 MG PATCH 1 PATCH TRANSDERM (13:40)
[2020-01-21 14:06] LABS: Ammonia 17 umol/L (11-32)
[2020-01-21 16:15] VITALS: BP 133/50; PULSE 85; RESP 18; TEMP 36.4; O2SAT 98
[2020-01-21 16:47] LABS: Glucose Point of Care 198 (65-105)
[2020-01-21] MEDS: BENZONATATE 100 MG CAPSULE PO ×2 (17:07→21:52)
[2020-01-21] MEDS: guaiFENesin 12 HR 600 MG TABCR PO (21:52)
[2020-01-21] MEDS: BUDESONIDE/FORMOTEROL (*SP) 160-4.5 MCG 6 GM INH 2 PUFF INHALATION (21:52)
[2020-01-21] MEDS: ACETAMINOPHEN 500 MG TABLET 1000 MG PO (21:52)
[2020-01-21] MEDS: MELATONIN 5 MG TABLET PO (21:52)
[2020-01-21] MEDS: DOCUSATE SODIUM 100 MG CAPSULE PO (21:52)
[2020-01-21 21:59] LABS: Glucose Point of Care 155 (65-105)
[2020-01-22] VITALS: BP 96/54; PULSE 75; RESP 20; TEMP 36.6; O2SAT 96
[2020-01-22 05:51] LABS: Hematocrit 28.9 % (35.0-42.0); Hemoglobin 8.8 g/dL (11.7-13.8); Mean Corpuscular HGB Conc 30.4 g/dL (32.0-36.0); Mean Corpuscular Hemoglobin 28.9 pg (27.0-31.0); Mean Corpuscular Volume 94.8 fL (78.0-102.0); Mean Platelet Volume 10.1 fl (9.2-11.8); Platelet Count Result 248 K/mm3 (150-420); Red Blood Count 3.05 M/mm3 (4.20-5.40); Red Cell Distribution Width 15.4 % (11.6-14.4); White Blood Count 4.7 K/mm3 (4.8-10.8)
[2020-01-22 06:08] LABS: Alanine Aminotransferase 42 U/L (14-59); Albumin Level 2.6 g/dL (3.4-5.0); Alkaline Phosphatase 166 U/L (46-116); Anion Gap 6 mmol/L (8-16); Aspartate Amino Transferase 21 U/L (15-37); Bilirubin,Total 0.3 mg/dL (0.00-1.00); Blood Urea Nitrogen 38 mg/dL (7-18); Calcium 9.1 mg/dL (8.5-10.1); Carbon Dioxide 29 mmol/L (21-32); Chloride 101 mmol/L (98-108); Estimated CRCL calculation 35 ml/min; Estimated Glomerular Filt Rate 31; Glucose 112 mg/dL (70-99); Magnesium 1.6 mg/dL (1.8-2.4); Osmolality Calculated 292 mOsm/kg (285-295); Potassium 4.8 mmol/L (3.5-5.1); Sodium 136 mmol/L (136-145); Total Protein 6.3 g/dL (6.4-8.2)
[2020-01-22 08:00] VITALS: BP 103/51; PULSE 83; RESP 18; TEMP 36.7; O2SAT 97
[2020-01-22] MEDS: ENOXAPARIN 40 MG/0.4 ML SYRINGE SUB-Q (09:45)
[2020-01-22] MEDS: NICOTINE (*PBKC) 21 MG PATCH 1 PATCH TRANSDERM (09:45)
[2020-01-22] MEDS: DOCUSATE SODIUM 100 MG CAPSULE PO (09:45)
[2020-01-22] MEDS: PANTOPRAZOLE SOD SESQUIHYDRATE 20 MG TAB PO (09:45)
[2020-01-22] MEDS: ASPIRIN 81 MG ENTERIC TABLET PO (09:45)
[2020-01-22] MEDS: BUDESONIDE/FORMOTEROL (*SP) 160-4.5 MCG 6 GM INH 2 PUFF INHALATION (09:46)
[2020-01-22] MEDS: ATORVASTATIN 10 MG TABLET 20 MG PO (09:46)
[2020-01-22] MEDS: guaiFENesin 12 HR 600 MG TABCR PO (09:46)
[2020-01-22] MEDS: FUROSEMIDE 20 MG TABLET PO (09:46)
[2020-01-22] MEDS: CHLORTHALIDONE 25 MG TABLET PO (09:46)
[2020-01-22] MEDS: allopurinoL 100 MG TABLET PO (09:46)
[2020-01-22] MEDS: FERROUS SULFATE 324 MG TABLET PO (09:46)
[2020-01-22] MEDS: GABAPENTIN 300 MG CAPSULE PO ×2 (09:46→13:39)
[2020-01-22] MEDS: OXYBUTYNIN CHLORIDE 5 MG TABLET PO (09:46)
[2020-01-22] MEDS: MULTIVITAMINS THERAPEUTIC TAB (*BKC) 1 TABLET PO (09:46)
[2020-01-22] MEDS: GLIMEPIRIDE 1 MG TABLET PO (09:48)
--- NOTE | 2020-01-22 12:04 | P.DS_ITS ---
DS: Admitting Diagnosis Admitting Diagnosis Admitting Diagnosis: UTI <Meghana Levi LEA - Last Filed: 01/22/20 12:11> DS: Discharge Diagnosis Discharge Diagnosis (1) Altered mental status: Code(s): R41.82 - Altered mental status, unspecified <Meghana Levi MULTISENSOR INTELLIGENCE OFFICERGeorgiaHerrera - Last Filed: 01/22/20 12:11> Status: Acute <Meghana Levi YAZMINHerrera - Last Filed: 01/22/20 12:11> Assessment and Plan: * Possibly secondary to Covid versus pneumonia versus UTI versus metabolic encephalopathy versus acute kidney injury * Ammonia level wnl * Chest x-ray indicates . Airspace opacities at the lung bases with interval improvement, consistent with atelectasis versus pneumonia. * UA with the growth of E. coli * Creatinine on admission 3.50 currently 1.64 * Treat underlying condition <Meghana Levi YAZMINHerrera - Last Filed: 01/22/20 12:11> (2) Essential hypertension: Code(s): I10 - Essential (primary) hypertension <Meghana Levi LEA - Last Filed: 01/22/20 12:11> Status: Inactive <Meghana Levi LEA - Last Filed: 01/22/20 12:11> Assessment and Plan: * Blood pressure 103/51 soft * Patient home medication lisinopril 40 mg daily held due to kidney injury will discontinue it upon discharge, continue Lasix 20 mg p.o. daily and Hygroton 25 mg daily * <Meghana PedrozaDEEPAK DonGeorgiaHerrera - Last Filed: 01/22/20 12:11> (3) DM type 2 (diabetes mellitus, type 2): Code(s): E11.9 - Type 2 diabetes mellitus without complications <Meghana PedrozaDEEPAK DonGeorgiaHerrera - Last Filed: 01/22/20 12:11> Status: Inactive <Meghana PedrozaDEEPAK DonGeorgiaHerrera - Last Filed: 01/22/20 12:11> Assessment and Plan: * Blood sugar 155 * Continue glimepiride 1 mg daily insulin flextouch * <Antonioheydi YovanyLEA Don - Last Filed: 01/22/20 12:11> (4) TIMOTEO (acute kidney injury): Code(s): N17.9 - Acute kidney failure, unspecified <Meghana Levi LEA - Last Filed: 01/22/20 12:11> Status: Inactive <Meghana Levi LEA - Last Filed: 01/22/20 12:11> Assessment and Plan: * Acute on chronic * On admission patient's BUN 3.50 currently 1.64improving <Meghana Levi LEA - Last Filed: 01/22/20 12:11> (5) Metabolic encephalopathy: Code(s): G93.41 - Metabolic encephalopathy <Meghana Levi LEA - Last Filed: 01/22/20 12:11> Status: Inactive <Meghana Levi LEA - Last Filed: 01/22/20 12:11> Assessment and Plan: * History of metabolic cephalopathy and hepatitis * Ammonia level within normal limits <Meghana Levi LEA - Last Filed: 01/22/20 12:11> (6) UTI (urinary tract infection): Code(s): N39.0 - Urinary tract infection, site not specified <Meghana Levi LEA - Last Filed: 01/22/20 12:11> Status: Acute <Meghana Levi LEA - Last Filed: 01/22/20 12:11> Assessment and Plan: * UA with the growth of E. coli * Started cefdinir * Sensitivity indicates sensitive to Rocephin <Meghana PedrozaFlakita Gurmeet LEA - Last Filed: 01/22/20 12:11> (7) COPD (chronic obstructive pulmonary disease): Code(s): J44.9 - Chronic obstructive pulmonary disease, unspecified <Meghana Levi YAZMINHerrera - Last Filed: 01/22/20 12:11> Status: Inactive <Meghana Levi LEA - Last Filed: 01/22/20 12:11> Assessment and Plan: * Patient is current smoker started nicotine patch * Started Symbicort scheduled and as needed albuterol * Continue Tessalon Perles and guaifenesin <Meghana PedrozaFlakita Levi MULTISENSOR INTELLIGENCE OFFICER-C - Last File d: 01/22/20 12:11>
--- NOTE | 2020-01-22 12:04 | PM.DS ---
DS: Admitting Diagnosis Admitting Diagnosis Admitting Diagnosis: UTI <Meghana PedrozaFlakita Gurmeet CERTIFIED WELDERGeorgiaHerrera - Last Filed: 01/22/20 12:11> DS: Discharge Diagnosis Discharge Diagnosis (1) Altered mental status: Code(s): R41.82 - Altered mental status, unspecified <Meghana LeviDEEPAKGeorgiaHerrera - Last Filed: 01/22/20 12:11> Status: Acute <Meghana Levi YAZMINHerrera - Last Filed: 01/22/20 12:11> Assessment and Plan: Possibly secondary to Covid versus pneumonia versus UTI versus metabolic encephalopathy versus acute kidney injury Ammonia level wnl Chest x-ray indicates . Airspace opacities at the lung bases with interval improvement, consistent with atelectasis versus pneumonia. UA with the growth of E. coli Creatinine on admission 3.50 currently 1.64 Treat underlying condition <Meghana ePdrozaFlakita Levi CERTIFIED WELDERGeorgiaHerrera - Last Filed: 01/22/20 12:11> (2) Essential hypertension: Code(s): I10 - Essential (primary) hypertension <Meghana PedrozaFlakita Levi YAZMIN - Last Filed: 01/22/20 12:11> Status: Inactive <Meghana Levi LEA - Last Filed: 01/22/20 12:11> Assessment and Plan: Blood pressure 103/51 soft Patient home medication lisinopril 40 mg daily held due to kidney injury will discontinue it upon discharge, continue Lasix 20 mg p.o. daily and [place] 25 mg daily <Meghana PedrozaDEEPAK DonGeorgiaHerrera - Last Filed: 01/22/20 12:11> (3) DM type 2 (diabetes mellitus, type 2): Code(s): E11.9 - Type 2 diabetes mellitus without complications <Meghana PedrozaFlakita Levi YAZMINHerrera - Last Filed: 01/22/20 12:11> Status: Inactive <Meghana PedrozaFlakita Levi CERTIFIED WELDERGeorgiaHerrera - Last Filed: 01/22/20 12:11> Assessment and Plan: Blood sugar 155 Continue glimepiride 1 mg daily insulin flextouch <Antonioheydi YovanyFlakita Levi YAZMINHerrera - Last Filed: 01/22/20 12:11> (4) TIMOTEO (acute kidney injury): Code(s): N17.9 - Acute kidney failure, unspecified <Meghana Levi CERTIFIED WELDER-C - Last Filed: 01/22/20 12:11> Status: Inactive <DEEPAK Contreras-C - Last Filed: 01/22/20 12:11> Assessment and Plan: Acute on chronic On admission patient's BUN 3.50 currently 1.64improving <TREMAINE ContrerasP-C - Last Filed: 01/22/20 12:11> (5) Metabolic encephalopathy: Code(s): G93.41 - Metabolic encephalopathy <TREMAINE ContrerasP-C - Last Filed: 01/22/20 12:11> Status: Inactive <DEEPAK Contreras-C - Last Filed: 01/22/20 12:11> Assessment and Plan: History of metabolic cephalopathy and hepatitis Ammonia level within normal limits <DEEPAK Contreras-C - Last Filed: 01/22/20 12:11> (6) UTI (urinary tract infection): Code(s): N39.0 - Urinary tract infection, site not specified <TREMAINE ContrerasP-C - Last Filed: 01/22/20 12:11> Status: Acute <DEEPAK Contreras-C - Last Filed: 01/22/20 12:11> Assessment and Plan: UA with the growth of E. coli Started cefdinir Sensitivity indicates sensitive to Rocephin <DEEPAK Contreras-C - Last Filed: 01/22/20 12:11> (7) COPD (chronic obstructive pulmonary disease): Code(s): J44.9 - Chronic obstructive pulmonary disease, unspecified <Meghana Levi CERTIFIED WELDER-C - Last Filed: 01/22/20 12:11> Status: Inactive <DEEPAK Contreras-C - Last Filed: 01/22/20 12:11> Assessment and Plan: Patient is current smoker started nicotine patch Started Symbicort scheduled and as needed albuterol Continue Tessalon Perles and guaifenesin <Meghana Levi DEEPAK-C - Last Filed: 01/22/20 12:11> (8) Anemia: Code(s): D64.9 - Anemia, unspecified <LEA Contreras - Last Filed: 01/22/20 12:11> Status: Inactive <LEA Contreras - Last Filed: 01/22/20 12:11> Assessment and Plan: Iron deficiency anemia Continue iron supplements No active bleeding noted <LEA Contreras - Last Filed: 01/21
[2020-01-22 13:37] LABS: Gabapentin 14.3 mcg/mL
--- NOTE | 2020-01-22 14:01 | PC.NURSE ---
Report called to [facility].
[2020-01-23 09:53] LABS: Glucose Point of Care 254 (65-105)
[2020-01-26 17:56] LABS: Transferrin 152 mg/dL (188-341)
--- NOTE | 2020-01-27 10:11 | PC.NURSE ---
correction states they received the instructions and have no questions or problems.
== END 2020-01-22 14:45 | DRG 689 ==
PROVIDERS: Nurse Practitioner; Nurse Practitioner Family; Admitting Provider Emergency Medicine; PCP Internal Medicine; Visit Provider Emergency Medicine
DX: N39.0 Urinary tract infection, site not specified (principal); J18.9 Pneumonia, unspecified organism; N17.9 Acute kidney failure, unspecified; E11.22 Type 2 diabetes mellitus with diabetic chronic kidney disease; I12.9 Hypertensive chronic kidney disease with stage 1 through stage 4 chronic kidney disease, or unspecified chronic kidney disease; N18.9 Chronic kidney disease, unspecified; J44.9 Chronic obstructive pulmonary disease, unspecified; D64.9 Anemia, unspecified; L89.319 Pressure ulcer of right buttock, unspecified stage; E66.9 Obesity, unspecified; E78.5 Hyperlipidemia, unspecified; N32.81 Overactive bladder; R01.1 Cardiac murmur, unspecified; R41.82 Altered mental status, unspecified; Z87.891 Personal history of nicotine dependence; Z86.19 Personal history of other infectious and parasitic diseases
CPT/HCPCS: 36415; 80048; 80053; 80171; 82140; 82607; 82728; 82746; 83540; 83550; 83735; 84443; 84466; 85027; 85046; 97110; 97161; 97165; 97530; 97535; A9270; J0696; J1650; J1815; J7030

== ENCOUNTER 2020-02-24 10:12 | Inpatient (IN) | payer MEDICARE, MEDICAID, SELFPAY ==
[2020-02-24] VITALS (22 sets, daily range): BP systolic 107–156; BP diastolic 52–99; PULSE 69–121; RESP 17–26; TEMP 36.7–37.3; O2SAT 93–100; BMI 43.6
--- NOTE | ~2020-02-24 | US_ITS ---
EXAMINATION: US venous doppler [facility] DATE: 02/24/2020 14:50 INDICATION: Lower limb edema. TECHNIQUE: Grayscale ultrasound images without and with compression and Doppler ultrasound images of the bilateral lower extremity veins were obtained. COMPARISON: Ultrasound 12/21/2019 FINDINGS: The visualized portions of right common femoral vein, profunda (deep) femoral vein, femoral vein, pop liteal vein, peroneal veins, posterior tibial veins, and greater saphenous vein outflow are patent. The visualized portions of left common femoral vein, profunda femoral vein, femoral vein, popliteal v ein, posterior tibial veins, and greater saphenous vein outflow are patent. IMPRESSION: 1. No deep venous thrombosis. Reviewed, dictated and finalized at location A. RUBBER MOLDER
--- NOTE | ~2020-02-24 | XR_ITS ---
EXAMINATION: XR chest 1V portable EXAM DATE: 02/24/2020 11:08 INDICATION: Shortness of air. Altered mental status. TECHNIQUE: Portable AP frontal chest x-ray was obtained. Comparison is made to prior examination from 01/17/2020. FINDINGS: The lungs are clear. There are no pleural effusions. Cardiac silhouette is prominent but magnified on this AP technique. There is no pneumothorax suspected. There are bony degenerative ch anges. There are cholecystectomy clips. There is aortic arteriosclerosis. There is no significant int erval change. IMPRESSION: No acute cardiopulmonary findings. Reviewed, dictated and finalized at location B. NICAL DATA ANALYST
--- NOTE | 2020-02-24 10:23 | ECG_ITS ---
Measurements Intervals [place] Rate: 99 P: 56 KS: 148 QRS: -24 QRSD: 92 T: 27 QT: 329 QTc: 423 Interpretive Statements SINUS RHYTHM LOW QRS VOLTAGE IN PRECORDIAL LEADS BORDERLINE R WAVE PROGRESSION, ANTERIOR LEADS BASELINE WANDER- I, II, AVR, AVL, AVF BORDERLINE ECG Electronically Signed On 02-24-2020 10:50:51 INFORMATION SYSTEMS SECURITY OFFICER by Monroe Kessler D.O.
[2020-02-24 10:53] LABS: Alveolar/Arterial O2 Gradient 111.5 mmHg; Base Excess ABG -3.2 mEq/l (+/-2.0); Fractional Inspired Oxygen 36 %; HCO3 ABG 24.2 mEq/l (22.0-26.0); Oxygen Content ABG 13.9 %vol (16.0-22.0); Oxygen Saturation ABG 94.3 % (95.0-100.0); Oxyhemoglobin 91.6 % THb (90.0-100.0); PCO2 ABG 54.7 mmHg (35.0-45.0); PO2 ABG 81.7 mmHg (80.0-100.0); PO2 FiO2 Ratio Arterial Blood 2.27 %; Total Hemoglobin 10.7 g/dL (12.0-18.0)
[2020-02-24 10:55] LABS: Device NASAL CANNULA; Site Drawn RIGHT BRACHIAL; pH ABG 7.264 (7.350-7.450)
[2020-02-24 11:19] LABS: Basophils Percent Auto 0.5 % (0.2-1.2); Eosinophils Absolute Auto 0.1 K/mm3 (0-0.3); Eosinophils Percent Auto 2.1 % (0-4.4); Hematocrit 34.1 % (37.0-47.0); Hemoglobin 10.3 g/dL (12.0-15.0); Immature Granulocyte Absolute 0.02 K/mm3 (0.00-0.031); Immature Granulocyte Percent A 0.3 % (0-0.5); Lymphocytes Absolute Auto 1.21 K/mm3 (0.9-3.2); Lymphocytes Percent Auto 19.9 % (18.3-44.2); Mean Corpuscular HGB Conc 30.2 g/dl (32-36); Mean Corpuscular Hemoglobin 30.2 pg (26-34); Mean Platelet Volume 10.2 fl (7.4-10.4); Monocytes Absolute Auto 0.3 K/mm3 (0.1-0.6); Monocytes Percent Auto 4.8 % (2.6-8.5); Neutrophils Absolute Auto 4.4 K/mm3 (1.3-6.7); Neutrophils Percent Auto 72.4 % (45.5-73.1); Platelet Count Result 264 k/mm3 (150-375); Red Blood Count 3.41 M/mm3 (4.2-5.4); Red Cell Distribution Width 16.4 % (11.5-14.5); White Blood Count 6.1 K/mm3 (4.5-10.0)
[2020-02-24 11:26] LABS: Add Urine Microscopic? YES; Appearance Urine Cloudy (Clear); Bacteria Urine 3+ /hpf; Bilirubin Urine Negative (Negative); Blood Urine 1+ (Negative); Color Urine Yellow (Yellow); Glucose Urine UA Negative (Negative); Ketones Urine Negative (Negative); Leukocyte Esterase Ur 3+ LEU/UL (Negative); Mucus Urine Rare /lpf; Nitrate Urine Positive (Negative); Protein Urine 1+ mg/dL (Negative); Specific Grav Ur 1.014 (1.001-1.035); Squamous Epithelial Cell Urine Few /hpf (Few); Transitional Epi Cells Urine Rare /hpf (None Seen); Urobilinogen Urine Negative mg/dL (<2.0); WBC Clumps Urine Present /HPF; WBC Urine >75 /hpf
[2020-02-24 11:29] LABS: INR 0.9; Prothrombin Time 12.7 Seconds (11.1-14.7)
[2020-02-24 11:30] LABS: Partial Thromboplastin Time 21.3 SECONDS (22.3-36.8)
[2020-02-24 11:31] LABS: Anion Gap 3 mmol/L (8-16); Blood Urea Nitrogen 66 mg/dL (7-17); Calcium 8.8 mg/dL (8.4-10.2); Carbon Dioxide 28 mmol/L (22-30); Chloride 107 mmol/L (98-107); Estimated CRCL calculation 30 ml/min; Estimated Glomerular Filt Rate 25; Glucose 126 mg/dL (65-105); Lactic Acid Reflex 0.8 mmol/L (0.7-2.1); Potassium 4.8 mmol/L (3.4-5.0); Sodium 138 mmol/L (137-145)
--- NOTE | 2020-02-24 11:54 | ED.GENADULT ---
HPI - General Adult General Chief complaint: Altered Mental Status Stated complaint: Altered Time Seen by Provider: 02/24/20 10:12 History of Present Illness HPI narrative: Patient is a 69-year-old female who presents the ER from home with altered mental status and hypoxia. Patient has history of COPD with coarse cough. Requiring 4 L nasal cannula. Patient is oriented to self and place. She has no reports of pain or distress but is clearly ill. Related Data Home Medications Medication Instructions Recorded Confirmed Adults Multivitamin 1 tablet PO DAILY 12/20/19 12/20/19 Tresiba FlexTouch U-100 14 unit SUBCUT DAILY 12/20/19 12/20/19 acetaminophen [Tylenol] 325 mg PO Q4-6H PRN 12/20/19 12/20/19 allopurinol 100 mg PO DAILY 12/20/19 12/20/19 aspirin 81 mg PO DAILY 12/20/19 12/20/19 atorvastatin 20 mg PO DAILY 12/20/19 12/20/19 chlorthalidone 25 mg PO DAILY 12/20/19 12/20/19 cholecalciferol (vitamin D3) 1,000 units PO DAILY 12/20/19 12/20/19 gabapentin 300 mg PO TID 12/20/19 12/20/19 glimepiride 1 mg PO DAILY 12/20/19 12/20/19 lisinopril 40 mg PO DAILY 12/20/19 12/20/19 oxybutynin chloride 5 mg PO DAILY 12/20/19 12/20/19 pantoprazole [Protonix] 20 mg PO DAILY 12/20/19 12/20/19 triamcinolone acetonide 1 applic TOPICAL DAILY 12/20/19 12/20/19 Allergies Allergy/AdvReac Type Severity Reaction Status Date / Time No Known Allergies Allergy Verified 12/23/19 13:59 Review of Systems Review of Systems: ROS unobtainable: Yes unobtainable due to mental status PMFSH Past Medical History Medical History (Updated 02/24/20 @ 17:11 by Angel Rushing MD) Chronic obstructive pulmonary disease Diabetic retinopathy 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 Diastolic congestive heart failure History of colon polyps History of peptic ulcer disease Hyperlipidemia Hypertension Insulin dependent diabetes mellitus Morbid obesity Neuropathy Overactive bladder Tobacco abuse Surgical History Surgical History History of cholecystectomy Family History Family History Mother Emphysema/COPD Father Carcinoma of colon Sibling Diabetes mellitus Social History Social History (Updated 12/20/19 @ 21:03 by Mine Sidhu PA-C) Social History: Surrogate decision maker: Yfn Cheung, nephew. Code status: Full code. Smoking packs per day: 2 Smoking cigarettes per day: 40.0 Years smoked: 58 Smoking pack-years: 116.00 Alcohol intake: never Substance use: never Additional living arrangements comments: Lives in a senior apartment in [place]. Reportedly independent of ADLs. Ambulates mainly with an electric scooter. Gender identity (if verbalized by the patient): Female Spiritual care concerns: No Exam Narrative: Exam Narrative: GENERAL: Chronically ill-appearing, morbidly obese, and in mild distress. HEAD: Normocephalic, atraumatic. ENT: Mucous membranes moist. CHEST: Coarse Rales bilaterally. Mild increased work of breathing. HEART: Regular rate and rhythm. Normal peripheral pulses. ABDOMEN: Soft, nontender, nondistended. EXTREMITIES: Normal range of motion. Chronic lower extremity edema with venous stasis changes. SKIN: Warm, dry, no rash. NEURO:Alert and oriented x2. Course Course Emergency Course: Patient accepted to the hospitalist service. She is being hydrated will be, Covid PUI. IV antibiotics ordered for UTI. Vital Signs Vital signs: Vital Signs Temperature 98.0 F 02/24/20 10:18 Pulse Rate 69 02/24/20 10:18 Respiratory Rate 23 H 02/24/20 10:18 Blood Pressure 142/68 H 02/24/20 10:18 Pulse Oximetry 100 02/24/20 10:18 Temperature 98.0 F 02/24/20 10:18 Pulse Rate 91 02/24/20 16:13 Respiratory Rate 23 H 02/24/20 16:13 Blood Pressure 108/74 02/24/20 16:13 Pulse Oximetry 93 02/24/20 16:13 Medical Decision Making Vital Sign
[2020-02-24] MEDS: SODIUM CHLORIDE 0.9% IV 1,000 ML 999 ML IV CONT (12:07)
[2020-02-24] MEDS: IPRATROPIUM BR 0.02% INH SOLN 0.5 MG/2.5 ML VIAL INHALATION ×2 (13:04→21:09)
[2020-02-24] MEDS: ALBUTEROL SULFATE NEB 2.5 MG/0.5 ML INH 5 MG INHALATION ×2 (13:04→21:09)
--- NOTE | 2020-02-24 13:50 | PM.IMHP ---
H&P: HPI History of Present Illness Date/Time: 02/24/20 13:50 Chief Complaint: Shortness of breath Narrative: Sherrie Muniz is a 69 year old female Who has a history of COPD. The patient lives home alone and does not wear any Oxygen at home. Patient continues to smoke and she has type 2 diabetes as well. Her last admission was on 12/20/2019 where she came in with altered mental status. Patient had an echo at that time which was read as grade 1 diastolic dysfunction. The patient had hypercapnia at that time which did resolve. She also had acute kidney injury at that time. She had venous Dopplers at the time and there were negative for DVT. The patient came in today via ER from home with altered mental status and hypoxia patient does have a history of COPD she is now requiring 4 L per nasal cannula. I explained when if she went home she could probably . Her COVID test is pending. She was negative in December in August. Chest x-ray today was read as no acute cardiopulmonary findings. last ABG pH was 7.264 CO2 was 54.7. A BiPAP was placed and the patient was tearing off her BiPAP machine so we left it often put her on oxygen patient continued to be confused. Patient was started on ceftriaxone for UTI and given IV fluids. Patient's pulse rate was up to 121 and looks like she was given a bolus of IV fluids and her pulse rate went down to 89. Patient is being admitted observation on the date of service 02/24/2020. Review of Systems Review of Systems: ROS unobtainable: Yes unobtainable due to mental status Constitutional: Constitutional: Reports as per HPI and Reports no additional constitutional complaints Eyes: Eyes: Reports as per HPI and Reports no additional eye complaints ENT: Reports system reviewed and no additional complaints, except as documented and Reports Normal hearing present Cardiovascular: Cardiovascular: Reports no additional cardiovascular complaints Respiratory: Respiratory: Reports no additional respiratory complaints and Reports no additional respiratory complaints Gastrointestinal: Gastrointestinal: Reports as per HPI and Reports no additional gastrointestinal complaints Musculoskeletal: Musculoskeletal: Reports no additional musculoskeletal complaints Integumentary/Breasts: Skin/Breast: Reports system reviewed and no additional complaints, except as docu and Reports as per HPI Neurologic: Reports system reviewed and no additional complaints, except as documented, Reports as per HPI and Reports Normal hearing present Psychiatric: Psychiatric: Reports no additional psychiatric complaints and Reports as per HPI Endocrine: Endocrine: Reports no additional endocrine complaints Hematologic/Lymphatic: Hematologic/Lymphatic: Reports no additional hematologic/lymphatic complaints Allergic/Immunologic: Allergic/Immunologic: Reports no additional allergic/immunologic complaints [facility] Past Medical History Medical History (Updated 02/24/20 @ 14:21 by Cheri Lucero NP) Chronic obstructive pulmonary disease Diabetic retinopathy 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 Diastolic congestive heart failure History of colon polyps History of peptic ulcer disease Hyperlipidemia Hypertension Insulin dependent diabetes mellitus Morbid obesity Neuropathy Overactive bladder Tobacco abuse Surgical History Surgical History History of cholecystectomy Family History Family History Mother Emphysema/COPD Father Carcinoma of colon Sibling Diabetes mellitus Social History Social History (Updated 12/20/19 @ 21:03 by Mine Sidhu PA-C) Social History: Surrogate decision maker: Yfn Cheung, nephew. Code status: Full code. Smoking packs per day: 2 Smoking cigarettes per day: 40.0 Years smoked: 58 Smoking pack-years: 116.00 Alcohol intake: never Substance use
[2020-02-24 14:38] LABS: Alveolar/Arterial O2 Gradient 42.8 mmHg; Base Excess ABG -2.2 mEq/l (+/-2.0); Fractional Inspired Oxygen 21 %; HCO3 ABG 24.3 mEq/l (22.0-26.0); Oxygen Content ABG 11.7 %vol (16.0-22.0); Oxyhemoglobin 80.2 % THb (90.0-100.0); PCO2 ABG 49.9 mmHg (35.0-45.0); PO2 FiO2 Ratio Arterial Blood 2.25 %; Total Hemoglobin 10.4 g/dL (12.0-18.0); pH ABG 7.306 (7.350-7.450)
[2020-02-24 14:39] LABS: PO2 ABG 47.2 mmHg (80.0-100.0)
[2020-02-24 14:40] LABS: Device ROOM AIR; Modified Allen's Test Pass; Oxygen Saturation ABG 78.7 % (95.0-100.0); Site Drawn LEFT RADIAL
[2020-02-24 15:28] LABS: Glucose Point of Care 94 (65-105)
[2020-02-24] MEDS: methylPREDNISolone SOD SUCC 40 MG VIAL 60 MG IV PUSH (17:16)
--- NOTE | 2020-02-24 17:32 | PC.NURSE ---
This patient, Sherrie Muniz, was admitted to IMU Room 214-01. Patient/family oriented to hospital policies and general routines including ID bracelet, bed and alarms, visiting hours, pain management, procedures, bathroom and other care routines, personal items, smoking policy, room service/diet, and visiting hours. Information on how to activate the Rapid Response Team has been discussed. Patient/Family are encouraged to report perceived risks to care and to ask questions if they do not understand what they are told or what they should do.
[2020-02-24] MEDS: LACTATED RINGERS 1,000 ML 125 ML IV CONT (18:13)
[2020-02-24] MEDS: HEPARIN SODIUM 5,000 UNITS/ML VIAL 5000 UNITS SUB-Q (21:35)
[2020-02-24] MEDS: methylPREDNISolone SOD SUCC 125 MG VIAL 60 MG IV PUSH (21:35)
[2020-02-24 22:00] LABS: SARS-CoV-2 RNA PCR Negative
[2020-02-25] VITALS (17 sets, daily range): BP systolic 120–148; BP diastolic 48–74; PULSE 68–96; RESP 12–24; TEMP 36.2–36.8; O2SAT 94–99
[2020-02-25] MEDS: IPRATROPIUM BR 0.02% INH SOLN 0.5 MG/2.5 ML VIAL INHALATION ×3 (02:40→19:47)
[2020-02-25] MEDS: ALBUTEROL SULFATE NEB 2.5 MG/0.5 ML INH 5 MG INHALATION ×3 (02:40→19:47)
[2020-02-25 04:57] LABS: Basophils Percent Auto 0.3 % (0.2-1.2); Hematocrit 32.6 % (37.0-47.0); Hemoglobin 9.8 g/dL (12.0-15.0); Immature Granulocyte Absolute 0.02 K/mm3 (0.00-0.031); Immature Granulocyte Percent A 0.5 % (0-0.5); Lymphocytes Absolute Auto 0.57 K/mm3 (0.9-3.2); Lymphocytes Percent Auto 14.8 % (18.3-44.2); Mean Corpuscular HGB Conc 30.1 g/dl (32-36); Mean Corpuscular Hemoglobin 29.8 pg (26-34); Mean Corpuscular Volume 99.1 fl (80-100); Mean Platelet Volume 10.2 fl (7.4-10.4); Neutrophils Absolute Auto 3.2 K/mm3 (1.3-6.7); Neutrophils Percent Auto 83.4 % (45.5-73.1); Platelet Count Result 252 k/mm3 (150-375); Red Blood Count 3.29 M/mm3 (4.2-5.4); Red Cell Distribution Width 15.9 % (11.5-14.5); White Blood Count 3.9 K/mm3 (4.5-10.0)
[2020-02-25 05:28] LABS: Alanine Aminotransferase 33 U/L (4-35); Albumin Level 3.1 g/dL (3.5-5.1); Alkaline Phosphatase 333 U/L (38-126); Anion Gap 9 mmol/L (8-16); Aspartate Amino Transferase 35 U/L (14-36); Bilirubin,Total 0.4 mg/dL (0.2-1.3); Blood Urea Nitrogen 65 mg/dL (7-17); Calcium 8.7 mg/dL (8.4-10.2); Carbon Dioxide 23 mmol/L (22-30); Chloride 107 mmol/L (98-107); Estimated CRCL calculation 32 ml/min; Estimated Glomerular Filt Rate 28; Glucose 246 mg/dL (65-105); Magnesium 2.4 mg/dL (1.6-2.3); Potassium 4.6 mmol/L (3.4-5.0); Sodium 139 mmol/L (137-145)
[2020-02-25] MEDS: methylPREDNISolone SOD SUCC 125 MG VIAL 60 MG IV PUSH ×3 (06:00→21:25)
[2020-02-25] MEDS: HEPARIN SODIUM 5,000 UNITS/ML VIAL 5000 UNITS SUB-Q ×3 (06:00→21:25)
[2020-02-25 07:26] LABS: Thyroid Stimulating Hormone Reflex 0.352 uIU/mL (0.465-4.68)
[2020-02-25 08:31] LABS: Free T4 Free Thyroxine Reflex 1.15 ng/dL (0.78-2.19)
[2020-02-25 08:45] LABS: Glucose Point of Care 253 (65-105)
[2020-02-25] MEDS: ASPIRIN 81 MG CHEWABLE TABLET PO (09:23)
[2020-02-25] MEDS: PANTOPRAZOLE SOD SESQUIHYDRATE 20 MG TAB PO (09:23)
[2020-02-25] MEDS: INSULIN ASPART (*BKC) 100 UNITS/ML SUB-Q ×3 (09:23→17:15)
[2020-02-25] MEDS: GLIMEPIRIDE 1 MG TABLET PO (09:23)
[2020-02-25] MEDS: ATORVASTATIN 20 MG TABLET PO (09:23)
[2020-02-25 09:24] LABS: Total Triiodothyronine (T3) 0.77 NG/ML (0.97-1.69)
[2020-02-25] MEDS: EUCERIN CREAM 120 GM JAR 1 APPLIC TOPICAL (11:27)
[2020-02-25 12:16] LABS: Glucose Point of Care 359 (65-105)
--- NOTE | 2020-02-25 12:20 | PC.NURSE ---
Received from U via bed. Ling draining yellow urine.
--- NOTE | 2020-02-25 12:23 | PM.IMPN ---
Progress Note: A&P Assessment and Plan (1) Suspected COVID-19 virus infection: Code(s): Z20.828 - Contact with and (suspected) exposure to other viral communicable diseases Status: Acute Assessment and Plan: patient will be placed on isolation and is currently on Solu-Medrol. (2) Respiratory failure with hypoxia and hypercapnia: Code(s): J96.91 - Respiratory failure, unspecified with hypoxia; J96.92 - Respiratory failure, unspecified with hypercapnia Status: Acute Assessment and Plan: Could be her COPD she is being monitored for COVID-19. Continue with Solu-Medrol and neb treatments. (3) Chronic obstructive pulmonary disease: Qualifiers: COPD type: unspecified COPD Qualified Code(s): J44.9 - Chronic obstructive pulmonary disease, unspecified Code(s): J44.9 - Chronic obstructive pulmonary disease, unspecified Status: Acute Assessment and Plan: Check ABG again. The patient had been on a BiPAP and was ripping it off. May have to give her some sedation to keep her on it. Repeat ABGs. (4) Type 2 diabetes mellitus: Code(s): E11.9 - Type 2 diabetes mellitus without complications Status: Acute Assessment and Plan: Accu-Cheks AC and HS. Check A1c. continue with glimepiride. Continue gabapentin (5) Tobacco abuse: Code(s): Z72.0 - Tobacco use Status: Acute Assessment and Plan: Patient has been offered tobacco cessation information. (6) Acute kidney injury: Code(s): N17.9 - Acute kidney failure, unspecified Status: Acute Assessment and Plan: She has acute on chronic renal failure. She was hydrated please recheck BMP in the a.m.. Hold lisinopril and chlorthalidone. (7) Diastolic congestive heart failure: Code(s): I50.30 - Unspecified diastolic (congestive) heart failure Status: Acute Assessment and Plan: hold lisinopril and diuretic. (8) Hyperlipidemia: Qualifiers: Hyperlipidemia type: unspecified Qualified Code(s): E78.5 - Hyperlipidemia, unspecified Code(s): E78.5 - Hyperlipidemia, unspecified Status: Chronic Assessment and Plan: Hold statin for now. Subjective Date/time seen: 02/25/20 12:23 Interval history: Patient was seen during the morning rounds today, mild sob,no chest pain, mood stable. Review of Systems Review of Systems: ROS unobtainable: Yes unobtainable due to mental status Constitutional: Constitutional: Reports as per HPI and Reports no additional constitutional complaints Eyes: Eyes: Reports as per HPI and Reports no additional eye complaints ENT: Reports system reviewed and no additional complaints, except as documented and Reports Normal hearing present Cardiovascular: Cardiovascular: Reports no additional cardiovascular complaints Respiratory: Respiratory: Reports no additional respiratory complaints and Reports no additional respiratory complaints Gastrointestinal: Gastrointestinal: Reports as per HPI and Reports no additional gastrointestinal complaints Musculoskeletal: Musculoskeletal: Reports no additional musculoskeletal complaints Integumentary/Breasts: Skin/Breast: Reports system reviewed and no additional complaints, except as docu and Reports as per HPI Neurologic: Reports system reviewed and no additional complaints, except as documented, Reports as per HPI and Reports Normal hearing present Psychiatric: Psychiatric: Reports no additional psychiatric complaints and Reports as per HPI Endocrine: Endocrine: Reports no additional endocrine complaints Hematologic/Lymphatic: Hematologic/Lymphatic: Reports no additional hematologic/lymphatic complaints Allergic/Immunologic: Allergic/Immunologic: Reports no additional allergic/immunologic complaints Exam Const: General: cooperative, comfortable, no acute distress, well developed, alert, awake, Physically active and poor hygiene Nutritional Appea
--- NOTE | 2020-02-25 12:33 | PC.NURSE ---
This patient, Sherrie Muniz, was transferred to [facility] on 02/25/20 at 1220. Personal belongings sent with patient. Report given to RUMA Roberto. Appropriate documentation sent with patient.
[2020-02-25] MEDS: HYDROcodone/acetaminophen (*CRX) 5-325 MG TABLET 1 TAB PO ×2 (16:42→20:51)
[2020-02-25 17:04] LABS: Glucose Point of Care 354 (65-105)
[2020-02-25 20:34] LABS: Glucose Point of Care 344 (65-105)
[2020-02-25] MEDS: HYOSCYAMINE SULFATE 0.5 MG/ML AMPUL 0.25 MG IM (21:49)
[2020-02-25] MEDS: INSULIN GLARGINE (*BKC) 100 UNITS/ML 14 UNITS SUB-Q (21:50)
[2020-02-25] MEDS: LORazepam INJ (*CRX) 2 MG/ML VIAL 0.5 MG IV PUSH (21:58)
[2020-02-26 05:34] VITALS: BP 137/83; PULSE 75; RESP 20; TEMP 36.6; O2SAT 97
[2020-02-26] MEDS: HEPARIN SODIUM 5,000 UNITS/ML VIAL 5000 UNITS SUB-Q ×3 (06:04→21:34)
[2020-02-26] MEDS: methylPREDNISolone SOD SUCC 125 MG VIAL 60 MG IV PUSH (06:04)
[2020-02-26 08:09] LABS: Alveolar/Arterial O2 Gradient 91.7 mmHg; Base Excess ABG -1.7 mEq/l (+/-2.0); Fractional Inspired Oxygen 32 %; HCO3 ABG 24.3 mEq/l (22.0-26.0); Oxygen Content ABG 15.2 %vol (16.0-22.0); Oxygen Saturation ABG 95.5 % (95.0-100.0); PO2 ABG 82.6 mmHg (80.0-100.0); PO2 FiO2 Ratio Arterial Blood 2.58 %; Total Hemoglobin 11.3 g/dL (12.0-18.0)
[2020-02-26 08:16] LABS: Device NASAL CANNULA; Modified Allen's Test Pass; Site Drawn RIGHT RADIAL
[2020-02-26 08:35] VITALS: PULSE 78; RESP 18; O2SAT 93
[2020-02-26] MEDS: ALBUTEROL SULFATE NEB 2.5 MG/0.5 ML INH 5 MG INHALATION ×2 (08:35)
[2020-02-26] MEDS: IPRATROPIUM BR 0.02% INH SOLN 0.5 MG/2.5 ML VIAL INHALATION ×2 (08:35)
[2020-02-26 08:45] VITALS: PULSE 80; RESP 20
[2020-02-26 08:47] LABS: Glucose Point of Care 301 (65-105)
[2020-02-26] MEDS: ASPIRIN 81 MG CHEWABLE TABLET PO (08:48)
[2020-02-26] MEDS: ATORVASTATIN 20 MG TABLET PO (08:48)
[2020-02-26] MEDS: GLIMEPIRIDE 1 MG TABLET PO (08:49)
[2020-02-26] MEDS: PANTOPRAZOLE SOD SESQUIHYDRATE 20 MG TAB PO (08:49)
[2020-02-26] MEDS: EUCERIN CREAM 120 GM JAR 1 APPLIC TOPICAL (08:49)
[2020-02-26] MEDS: INSULIN GLARGINE (*BKC) 100 UNITS/ML 14 UNITS SUB-Q (08:56)
[2020-02-26] MEDS: INSULIN ASPART (*BKC) 100 UNITS/ML SUB-Q ×3 (08:58→18:18)
--- NOTE | 2020-02-26 09:05 | P.CDI_ITS ---
CDI Query Clarification Request 1)Respiratory failure has been documented. Pt not on O2 at home prior to arrival. -02/23 ABG's pH 7.264 oBY087.7 pO281 HCO3 24.2 O2 sats 94% on 4LO2 Hypoxia documented Please further clarify acuity of respiratory failure: * Acute * Chronic * Acute on chronic * Unable to determine 2) COPD has been documented -wheezing has been documented -Solu Medrol 60mg IV q8 hrs ordered Please clarify if COPD is: * Exacerbated * Stable * Unable to determine
--- NOTE | 2020-02-26 09:05 | WPDCDIQUERY2 ---
CDI Query Clarification Request 1)Respiratory failure has been documented. Pt not on O2 at home prior to arrival. -02/23 ABG's pH 7.264 gFE550.7 pO281 HCO3 24.2 O2 sats 94% on 4LO2 Hypoxia documented Please further clarify acuity of respiratory failure: Acute Chronic Acute on chronic Unable to determine 2) COPD has been documented -wheezing has been documented -Solu Medrol 60mg IV q8 hrs ordered Please clarify if COPD is: Exacerbated Stable Unable to determine
--- NOTE | 2020-02-26 10:09 | PM.IMPN ---
Progress Note: A&P Assessment and Plan (1) Acute UTI: Code(s): N39.0 - Urinary tract infection, site not specified Status: Acute Assessment and Plan: Esbl uti, will consult ID (2) Respiratory failure with hypoxia and hypercapnia: Code(s): J96.91 - Respiratory failure, unspecified with hypoxia; J96.92 - Respiratory failure, unspecified with hypercapnia Status: Acute Assessment and Plan: Could be her COPD she is being monitored for COVID-19. Continue with Solu-Medrol and neb treatments. Pulmonary eval. (3) Chronic obstructive pulmonary disease: Qualifiers: COPD type: unspecified COPD Qualified Code(s): J44.9 - Chronic obstructive pulmonary disease, unspecified Code(s): J44.9 - Chronic obstructive pulmonary disease, unspecified Status: Acute Assessment and Plan: Check ABG again. The patient had been on a BiPAP and was ripping it off. May have to give her some sedation to keep her on it. Repeat ABGs. (4) Insulin dependent diabetes mellitus: Status: Acute (5) Suspected COVID-19 virus infection: Code(s): Z20.828 - Contact with and (suspected) exposure to other viral communicable diseases Status: Acute Assessment and Plan: patient will be placed on isolation and is currently on Solu-Medrol. (6) Type 2 diabetes mellitus: Code(s): E11.9 - Type 2 diabetes mellitus without complications Status: Acute Assessment and Plan: Accu-Cheks AC and HS. Check A1c. continue with glimepiride. Continue gabapentin (7) Tobacco abuse: Code(s): Z72.0 - Tobacco use Status: Acute Assessment and Plan: Patient has been offered tobacco cessation information. (8) Acute kidney injury: Code(s): N17.9 - Acute kidney failure, unspecified Status: Acute Assessment and Plan: She has acute on chronic renal failure. She was hydrated please recheck BMP in the a.m.. Hold lisinopril and chlorthalidone. (9) Diastolic congestive heart failure: Code(s): I50.30 - Unspecified diastolic (congestive) heart failure Status: Acute Assessment and Plan: hold lisinopril and diuretic. (10) Hyperlipidemia: Qualifiers: Hyperlipidemia type: unspecified Qualified Code(s): E78.5 - Hyperlipidemia, unspecified Code(s): E78.5 - Hyperlipidemia, unspecified Status: Chronic Assessment and Plan: Hold statin for now. Subjective Date/time seen: 02/26/20 10:09 Interval history: Patient was seen during the morning rounds today, mild sob,no chest pain, mood stable. No new complaints. Review of Systems Review of Systems: ROS unobtainable: Yes unobtainable due to mental status Constitutional: Constitutional: Reports as per HPI and Reports no additional constitutional complaints Eyes: Eyes: Reports as per HPI and Reports no additional eye complaints ENT: Reports system reviewed and no additional complaints, except as documented and Reports Normal hearing present Cardiovascular: Cardiovascular: Reports no additional cardiovascular complaints Respiratory: Respiratory: Reports no additional respiratory complaints and Reports no additional respiratory complaints Gastrointestinal: Gastrointestinal: Reports as per HPI and Reports no additional gastrointestinal complaints Musculoskeletal: Musculoskeletal: Reports no additional musculoskeletal complaints Integumentary/Breasts: Skin/Breast: Reports system reviewed and no additional complaints, except as docu and Reports as per HPI Neurologic: Reports system reviewed and no additional complaints, except as documented, Reports as per HPI and Reports Normal hearing present Psychiatric: Psychiatric: Reports no additional psychiatric complaints and Reports as per HPI Endocrine: Endocrine: Reports no additional endocrine complaints Hematologic/Lymphatic: Hematologic/Lymphatic: Reports no additional hematologic/lymphatic co
[2020-02-26 11:23] LABS: Glucose Point of Care 324 (65-105)
--- NOTE | 2020-02-26 12:34 | WPDINFPN2 ---
Progress Note: A&P Assessment and Plan (1) Asymptomatic bacteriuria: Code(s): R82.71 - Bacteriuria Status: Acute Assessment and Plan: 1. ASB 2. Altered mental status due to respiratory failure, no sepsis REC No further antibiotics. Dwell time of Ling per other MDs. Call if other Qs Subjective Date/time seen: 02/26/20 12:34 Objective Data Vital Signs Vital Signs: Vital Signs - 24 hr 02/25/20 14:00 02/25/20 18:00 02/25/20 19:50 Temperature 36.7 C 36.6 C Pulse Rate 69 71 78 Respiratory Rate 16 18 18 Blood Pressure 140/48 L 148/63 H Pulse Oximetry 99 99 02/25/20 19:51 02/25/20 20:00 02/25/20 21:00 Temperature 36.2 C L Pulse Rate 68 Respiratory Rate 18 Blood Pressure 134/60 Pulse Oximetry 97 98 98 02/26/20 05:34 02/26/20 08:35 02/26/20 08:45 Temperature 36.6 C Pulse Rate 75 78 80 Respiratory Rate 20 18 20 Blood Pressure 137/83 Pulse Oximetry 97 93 Intake/Output Intake/Output: Intake & Output 02/23/20 02/24/20 02/25/20 02/26/20 23:59 23:59 23:59 23:59 Intake Total 2744 697 4387 Output Total 877 157 8661 Balance 850 35 -660 Meds/Results Medications: Active Medications Generic Name Dose Route Start Last Admin Trade Name Freq PRN Reason Stop Dose Admin Acetaminophen 650 mg 02/24/20 12:16 Acetaminophen 325 Mg Tablet PO Q4H PRN Mild Pain (1-3) or Fever Hydrocodone Bitart/Acetaminophen 1 tab 02/24/20 12:16 02/25/20 20:51 Hydrocodone/Acetaminophen (*Crx) 5-325 Mg Tablet PO 1 tab Q4H PRN Administration Pain Rated 4-6 Aspirin 81 mg 02/25/20 09:00 02/26/20 08:48 Aspirin 81 Mg Chewable Tablet PO 81 mg DAILY CAITY Administration Atorvastatin Calcium 20 mg 02/25/20 09:00 02/26/20 08:48 Atorvastatin 20 Mg Tablet PO 20 mg DAILY CAITY Administration Budesonide/Formoterol Fumarate 2 puff 02/26/20 20:00 Budesonide/Form 160-4.5 Mcg (*Sp) INHALATION Q12HRT CAITY Dextrose 12.5 gm 02/24/20 13:59 Dextrose 50% 25 Gm/50 Ml Syringe IV PUSH PRN PRN Hypoglycemia Protocol Glimepiride 1 mg 02/25/20 09:00 02/26/20 08:49 Glimepiride 1 Mg Tablet PO 1 mg DAILY CAITY Administration Glucagon 1 mg 02/24/20 13:59 Glucagon For Inj 1 Mg Vial IM PRN PRN Hypoglycemia Protocol Glucose 15 gm 02/24/20 13:59 Glucose Oral Gel 15 Gm Of Glucse In 37.5 Gm Tube PO PRN PRN Hypoglycemia Protocol Heparin Sodium (Porcine) 5,000 units 02/24/20 22:00 02/26/20 06:04 Heparin Sodium 5,000 Units/Ml Vial SUB-Q 5,000 units Q8HR CAITY Administration Dextrose 1,000 mls @ 100 mls/hr 02/24/20 13:59 Dextrose 5% 1,000 Ml IVPB PRN PRN Hypoglycemia Protocol Insulin Aspart 2 - 5 units 02/24/20 17:00 02/26/20 08:58 Insulin Aspart (*Bkc) 100 Units/Ml SUB-Q 4 units TIDWM CAITY Administration Protocol Insulin Glargine 20 units 02/26/20 17:00 Insulin Glargine (*Bkc) 100 Units/Ml SUB-Q BID [facility] Methylprednisolone Sodium Succinate 40 mg 02/26/20 21:00 Methylprednisolone Sod Succ 40 Mg Vial IV PUSH Q12HR [facility] Morphine Sulfate 4 mg 02/24/20 12:16 Morphine Sulfate (*Crx) 4 Mg/Ml Inj IV PUSH Q2H PRN Pain Rated 7-10 Multi-Ingred Cream/Lotion/Oil/Oint 1 applic 02/25/20 09:00 02/26/20 08:49 Eucerin Cream 120 Gm Jar TOPICAL 1 applic QAM CAITY Administration Ondansetron HCl 4 mg 02/24/20 12:16 Ondansetron Inj 4 Mg/2 Ml Vial IV PUSH Q4H PRN Nausea Pantoprazole Sodium 20 mg 02/25/20 09:00 02/26/20 08:49 Pantoprazole Sod Sesquihydrate 20 Mg Tab PO 20 mg DAILY CAITY Administration Radiology Results: ITS Impressions Chest X-Ray 02/24/20 11:13 IMPRESSION: No acute cardiopulmonary findings. Venous Doppler Study 02/24/20 14:52 IMPRESSION: 1. No deep venous thrombosis. Labs Labs: Laboratory Results - last 24 hr 02/25/20 02/25/20 02/26/20 16:
--- NOTE | 2020-02-26 13:22 | CONS_ITS ---
DATE OF CONSULTATION: 02/26/2020 REASON FOR CONSULTATION: Abnormal urine. HISTORY OF PRESENT ILLNESS: A 69-year-old female who cannot provide a comprehensive history. She perseverates about wanting to get out of bed and leave the hospital. She has chronic respiratory failure and unfortunately continues to smoke. She was here in the hospital in December with respiratory failure. She denies being on home O2. She was brought to the emergency room 2 days ago with cough and disorientation. Here she had normal vital signs. No fever. Apparently due to an abnormal UA, she was started on ceftriaxone. Consultation now requested. The Ling catheter remains in place. She does not have a chronic Ling, one was placed at approximately 1300 on arrival day, 200 cc return. She noted no urologic or voiding complaints to the emergency room nor since. Currently, she does note a sensation of needing to void, but again has a Ling catheter in place. ALLERGIES: NONE KNOWN. PRESENT MEDICATIONS: List reviewed. On admission, her home medication list includes no immunosuppressants, nor antibiotics. HABITS: Still smokes 2 packs per day. No alcohol. PAST MEDICAL HISTORY: In addition to the above, cholecystectomy, overactive bladder, peripheral neuropathy, morbid obesity, type 2 diabetes mellitus, hypertension, hyperlipidemia, PUD, colon polyps, diastolic heart failure, diabetic retinopathy, COPD. REVIEW OF SYSTEMS: 14-point review attempted, not obtainable from the patient in a comprehensive fashion due to the above. FAMILY HISTORY: Not pertinent to her present illness. SOCIAL HISTORY: She is in a retirement setting locally, ambulates with a scooter. PHYSICAL EXAMINATION: GENERAL: Elderly female, appears her actual age. VITAL SIGNS: Afebrile, 75, 20, 137/83, 97% 3 L. SKIN: Warm and dry. No rashes. NODES: She has no cervical adenopathy. EENT: Pupils equal, round, and reactive to light. No paranasal sinus inflammation. Oropharynx, oral mucosa normal. She has very poor dentition. NECK: No masses, thyromegaly or meningismus. LUNGS: Diminished breath sounds, otherwise clear to auscultation and percussion. CARDIAC: Distant S1, S2. Regular rate and rhythm. No murmurs or gallops. ABDOMEN: Obese, nontender. No masses. No organomegaly. EXTREMITIES: No clubbing, cyanosis, or edema. : Ling catheter draining clear yellow urine. No sediment. LABORATORY DATA: White count yesterday 3.9, 6.1 on admission; hemoglobin 9.8, down half point; platelets 252; differential with a minimal left shift. Initial blood gases, 7.31, 50, 47, 79%. Repeat blood gases today, 7.34, 46, 83, 24, 96% and that is on 3 L. Chemistries with BUN 66, creatinine 2 initially, down to 65 and 1.8 yesterday. Accu-Cheks high at 324. Hemoglobin A1c performed in December, 7.4%. Albumin 3.1. MICROBIOLOGY DATA: Urinalysis, multiple abnormalities, which are reviewed. Coronavirus assay is nonreactive. No blood cultures done. Urine culture with ESBL-producing E coli. IMAGING: Renal ultrasound 12/21/2019 was normal. Chest x-ray 02/23, no active disease. ASSESSMENT: 1. Asymptomatic bacteriuria. 2. Confusion due to hypoxemic, hypercarbic respiratory failure. Contributing also may have been her elevated BUN and creatinine, though not at uremic levels. 3. Chronic obstructive pulmonary disease. 4. Diabetes mellitus with hyperglycemia. RECOMMENDATIONS: 1. No further antibiotics. 2. Discontinue Ling at your discretion. 3. Please call if further questions arise. Thank you very much for asking me to see her. LAQUITA GE M.D. MACHINE REPA[employer]ER MAINTENANCE DT:
[2020-02-26 14:00] VITALS: BP 144/54; PULSE 63; RESP 20; TEMP 36.6; O2SAT 100
[2020-02-26] MEDS: ACETAMINOPHEN 325 MG TABLET 650 MG PO (15:10)
--- NOTE | 2020-02-26 15:46 | PM.CNPUL ---
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 Diastolic congestive heart failure History of colon polyps History of peptic ulcer disease Hyperlipidemia Hypertension Insulin dependent diabetes mellitus Morbid obesity Neuropathy Overactive bladder Tobacco abuse Surgical History Surgical History History of cholecystectomy Family History Family History Mother Emphysema/COPD Father Carcinoma of colon Sibling Diabetes mellitus Social History Social History (Updated 12/20/19 @ 21:03 by Mine Sidhu PA-C) Social History: Surrogate decision maker: Yfn Cheung nephew. Code status: Full code. Smoking packs per day: 2 Smoking cigarettes per day: 40.0 Years smoked: 58 Smoking pack-years: 116.00 Smoking status: Current every day smoker Tobacco type: cigarettes Second hand tobacco smoke exposure: Yes Alcohol intake: never Substance use: never Substance use type: does not use Additional living arrangements comments: Lives in a senior apartment in [place]. Reportedly independent of ADLs. Ambulates mainly with an electric scooter. Gender identity (if verbalized by the patient): Female Spiritual care concerns: No Meds Home Medications and Allergies Home Medications Medication Instructions Recorded Confirmed Type Tresiba FlexTouch U-100 14 unit SUBCUT DAILY 12/20/19 02/25/20 History acetaminophen [Tylenol] 325 mg PO Q4-6H PRN 12/20/19 02/25/20 History allopurinol 100 mg PO DAILY 12/20/19 02/25/20 History aspirin 81 mg PO DAILY 12/20/19 02/25/20 History atorvastatin 20 mg PO DAILY 12/20/19 02/25/20 History chlorthalidone 25 mg PO DAILY 12/20/19 02/25/20 History gabapentin 300 mg PO TID 12/20/19 02/25/20 History glimepiride 1 mg PO DAILY 12/20/19 02/25/20 History lisinopril 40 mg PO DAILY 12/20/19 02/25/20 History oxybutynin chloride 5 mg PO DAILY 12/20/19 02/25/20 History pantoprazole [Protonix] 20 mg PO DAILY 12/20/19 02/25/20 History triamcinolone acetonide 1 applic TOPICAL DAILY 12/20/19 02/25/20 History cholecalciferol (vitamin D3) 1,000 unit PO DAILY 02/25/20 02/25/20 History [Vitamin D3] vzfxbepnekmd-bsd-zkqp-FA-vit K 1 tablet PO DAILY 02/25/20 02/25/20 History [Adults Multivitamin] Allergies Allergy/AdvReac Type Severity Reaction Status Date / Time No Known Allergies Allergy Verified 02/24/20 17:59 Vital Signs Vital Signs - 24 hr 02/25/20 18:00 02/25/20 19:50 02/25/20 19:51 Temperature 36.6 C Pulse Rate 71 78 Respiratory Rate 18 18 Blood Pressure 148/63 H Pulse Oximetry 99 97 02/25/20 20:00 02/25/20 21:00 02/26/20 05:34 Temperature 36.2 C L 36.6 C Pulse Rate 68 75 Respiratory Rate 18 20 Blood Pressure 134/60 137/83 Pulse Oximetry 98 98 97 02/26/20 08:35 02/26/20 08:45 02/26/20 14:00 Temperature 36.6 C Pulse Rate 78 80 63 Respiratory Rate 18 20 20 Blood Pressure 144/54 H Pulse Oximetry 93 100 Results Laboratory Findings CBC and BMP: 02/25/20 04:28 02/25/20 04:28 ABG, PT/INR, D-dimer: ABG ABG pH 7.340 (7.350-7.450) L 02/26/20 08:05 ABG pCO2 46.0 mmHg (35.0-45.0) H 02/26/20 08:05 ABG pO2 82.6 mmHg (80.0-100.0) 02/26/20 08:05 ABG O2 Saturation 95.5 % (95.0-100.0) 02/26/20 08:05 PT/INR, D-dimer PT 12.7 Seconds (11.1-14.7) 02/24/20 11:10 INR 0.9 02/24/20 11:10 Abnormal lab findings: Abnormal Labs 02/24/20 02/24/20 02/24/20 10:44 11:10 11:10 WBC RBC 3.41 L Hgb 10.3 L Hct 34.1 L MCHC 30.2 L RDW 16.4 H Neut %
--- NOTE | 2020-02-26 15:47 | PM.CNPUL ---
History of Present Illness History of Present Illness Consult date: 02/26/20 Chief complaint: AMS/Hypoxia/Uti/COVID PUI Narrative: This older lady with known COPD and a current UTI has been treated with BiPAP am given the mild respiratory acidosis evident earlier pH 7.30 ). The latter has improved with last pH 7.35. She has received nebs and steroids and is feeling better and in fact wants to go home. She denies a history of known sleep disorders and denies prior PSG. 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 Diastolic congestive heart failure History of colon polyps History of peptic ulcer disease Hyperlipidemia Hypertension Insulin dependent diabetes mellitus Morbid obesity Neuropathy Overactive bladder Tobacco abuse Surgical History Surgical History History of cholecystectomy Family History Family History Mother Emphysema/COPD Father Carcinoma of colon Sibling Diabetes mellitus Social History Social History (Updated 12/20/19 @ 21:03 by Mine Sidhu PA-C) Social History: Surrogate decision maker: Yfn Cheung, nephew. Code status: Full code. Smoking packs per day: 2 Smoking cigarettes per day: 40.0 Years smoked: 58 Smoking pack-years: 116.00 Smoking status: Current every day smoker Tobacco type: cigarettes Second hand tobacco smoke exposure: Yes Alcohol intake: never Substance use: never Substance use type: does not use Additional living arrangements comments: Lives in a senior apartment in [place]. Reportedly independent of ADLs. Ambulates mainly with an electric scooter. Gender identity (if verbalized by the patient): Female Spiritual care concerns: No Meds Home Medications and Allergies Home Medications Medication Instructions Recorded Confirmed Type Tresiba FlexTouch U-100 14 unit SUBCUT DAILY 12/20/19 02/25/20 History acetaminophen [Tylenol] 325 mg PO Q4-6H PRN 12/20/19 02/25/20 History allopurinol 100 mg PO DAILY 12/20/19 02/25/20 History aspirin 81 mg PO DAILY 12/20/19 02/25/20 History atorvastatin 20 mg PO DAILY 12/20/19 02/25/20 History chlorthalidone 25 mg PO DAILY 12/20/19 02/25/20 History gabapentin 300 mg PO TID 12/20/19 02/25/20 History glimepiride 1 mg PO DAILY 12/20/19 02/25/20 History lisinopril 40 mg PO DAILY 12/20/19 02/25/20 History oxybutynin chloride 5 mg PO DAILY 12/20/19 02/25/20 History pantoprazole [Protonix] 20 mg PO DAILY 12/20/19 02/25/20 History triamcinolone acetonide 1 applic TOPICAL DAILY 12/20/19 02/25/20 History cholecalciferol (vitamin D3) 1,000 unit PO DAILY 02/25/20 02/25/20 History [Vitamin D3] tzshvjujofop-blz-mqcs-FA-vit K 1 tablet PO DAILY 02/25/20 02/25/20 History [Adults Multivitamin] Allergies Allergy/AdvReac Type Severity Reaction Status Date / Time No Known Allergies Allergy Verified 02/24/20 17:59 Vital Signs Vital Signs - 24 hr 02/25/20 18:00 02/25/20 19:50 02/25/20 19:51 Temperature 36.6 C Pulse Rate 71 78 Respiratory Rate 18 18 Blood Pressure 148/63 H Pulse Oximetry 99 97 02/25/20 20:00 02/25/20 21:00 02/26/20 05:34 Temperature 36.2 C L 36.6 C Pulse Rate 68 75 Respiratory Rate 18 20 Blood Pressure 134/60 137/83 Pulse Oximetry 98 98 97 02/26/20 08:35 02/26/20 08:45 02/26/20 14:00 Temperature 36.6 C Pulse Rate 78 80 63 Respiratory Rate 18 20 20 Blood Pressure 144/54 H Pulse Oximetry 93 100 Results Laboratory Findings CBC and BMP: 02/25/20 04:28 02/25/20 04:28 ABG, PT/INR, D-dimer: ABG ABG pH 7.340 (7.350-7.450) L 02/26/20 08:05 ABG pCO2 46.0 mmHg (35.0-45.0) H 02/26/20 08:05 ABG pO2 82.
[2020-02-26] MEDS: INSULIN GLARGINE (*BKC) 100 UNITS/ML 20 UNITS SUB-Q (18:17)
[2020-02-26 18:31] LABS: Glucose Point of Care 254 (65-105)
[2020-02-26] MEDS: methylPREDNISolone SOD SUCC 40 MG VIAL IV PUSH (21:34)
[2020-02-26 21:52] VITALS: BP 153/63; PULSE 60; RESP 18; TEMP 36.6; O2SAT 100
[2020-02-26 22:47] LABS: Glucose Point of Care 170 (65-105)
[2020-02-27 06:00] VITALS: BP 146/60; PULSE 60; RESP 20; TEMP 36.1; O2SAT 99
[2020-02-27] MEDS: HEPARIN SODIUM 5,000 UNITS/ML VIAL 5000 UNITS SUB-Q (06:18)
[2020-02-27 07:29] LABS: Glucose Point of Care 226 (65-105)
[2020-02-27 08:00] VITALS: O2SAT 98
[2020-02-27] MEDS: INSULIN GLARGINE (*BKC) 100 UNITS/ML 20 UNITS SUB-Q (08:01)
[2020-02-27] MEDS: INSULIN ASPART (*BKC) 100 UNITS/ML SUB-Q (08:02)
[2020-02-27] MEDS: ASPIRIN 81 MG CHEWABLE TABLET PO (08:04)
[2020-02-27] MEDS: ATORVASTATIN 20 MG TABLET PO (08:04)
[2020-02-27] MEDS: GLIMEPIRIDE 1 MG TABLET PO (08:04)
[2020-02-27] MEDS: PANTOPRAZOLE SOD SESQUIHYDRATE 20 MG TAB PO (08:04)
[2020-02-27] MEDS: methylPREDNISolone SOD SUCC 40 MG VIAL IV PUSH (08:04)
[2020-02-27] MEDS: EUCERIN CREAM 120 GM JAR 1 APPLIC TOPICAL (08:05)
--- NOTE | 2020-02-27 10:00 | PM.DS ---
DS: Admitting Diagnosis Admitting Diagnosis Admitting Diagnosis: 1. Acute UTI 2. Respiratory failure with hypoxia 3. History of COPD 4. History of diabetes DS: Discharge Diagnosis Discharge Diagnosis (1) Acute UTI: Code(s): N39.0 - Urinary tract infection, site not specified Status: Acute Assessment and Plan: Esbl uti, will consult ID (2) Respiratory failure with hypoxia and hypercapnia: Code(s): J96.91 - Respiratory failure, unspecified with hypoxia; J96.92 - Respiratory failure, unspecified with hypercapnia Status: Acute Assessment and Plan: Could be her COPD she is being monitored for COVID-19. Continue with Solu-Medrol and neb treatments. Pulmonary eval. (3) Chronic obstructive pulmonary disease: Qualifiers: COPD type: unspecified COPD Qualified Code(s): J44.9 - Chronic obstructive pulmonary disease, unspecified Code(s): J44.9 - Chronic obstructive pulmonary disease, unspecified Status: Acute Assessment and Plan: Check ABG again. The patient had been on a BiPAP and was ripping it off. May have to give her some sedation to keep her on it. Repeat ABGs. (4) Insulin dependent diabetes mellitus: Status: Acute (5) Suspected COVID-19 virus infection: Code(s): Z20.828 - Contact with and (suspected) exposure to other viral communicable diseases Status: Acute Assessment and Plan: patient will be placed on isolation and is currently on Solu-Medrol. (6) Type 2 diabetes mellitus: Code(s): E11.9 - Type 2 diabetes mellitus without complications Status: Acute Assessment and Plan: Accu-Cheks AC and HS. Check A1c. continue with glimepiride. Continue gabapentin (7) Tobacco abuse: Code(s): Z72.0 - Tobacco use Status: Acute Assessment and Plan: Patient has been offered tobacco cessation information. (8) Acute kidney injury: Code(s): N17.9 - Acute kidney failure, unspecified Status: Acute Assessment and Plan: She has acute on chronic renal failure. She was hydrated please recheck BMP in the a.m.. Hold lisinopril and chlorthalidone. (9) Diastolic congestive heart failure: Code(s): I50.30 - Unspecified diastolic (congestive) heart failure Status: Acute Assessment and Plan: hold lisinopril and diuretic. (10) Hyperlipidemia: Qualifiers: Hyperlipidemia type: unspecified Qualified Code(s): E78.5 - Hyperlipidemia, unspecified Code(s): E78.5 - Hyperlipidemia, unspecified Status: Chronic Assessment and Plan: Hold statin for now. DS: Summary Hospital Course Hospital Course: Chief Complaint: Shortness of breath Narrative: Sherrie Muniz is a 69 year old female Who has a history of COPD. The patient lives home alone and does not wear any Oxygen at home. Patient continues to smoke and she has type 2 diabetes as well. Her last admission was on 12/20/2019 where she came in with altered mental status. Patient had an echo at that time which was read as grade 1 diastolic dysfunction. The patient had hypercapnia at that time which did resolve. She also had acute kidney injury at that time. She had venous Dopplers at the time and there were negative for DVT. The patient came in today via ER from home with altered mental status and hypoxia patient does have a history of COPD she is now requiring 4 L per nasal cannula. I explained when if she went home she could probably . Her COVID test is pending. She was negative in December in August. Chest x-ray today was read as no acute cardiopulmonary findings. last ABG pH was 7.264 CO2 was 54.7. A BiPAP was placed and the patient was tearing off her BiPAP machine so we left it often put her on oxygen patient continued to be confused. Patient was started on ceftriaxone for UTI and given IV fluids. Patient's pulse rate was up to 121 and looks like she was given a bolus of IV fluid
--- NOTE | 2020-02-27 11:08 | PM.PNPUL ---
Progress Note: A&P Additional Plan Stable. Home with outpatient followup is okay with me. Time Spent With Patient Time with patient: 15 - 25 minutes Subjective Date/time seen: 02/27/20 11:08 Interval history: Patient was seen by ID who recommended stopping antibiotics. Ling pulled. She has been maintained on Ambient air with dismissal likely this p.m.. Exam Narrative: Exam Narrative: chest clear. Heart distant. No neck adenopathy. Objective Data Vital Signs Vital Signs: Vital Signs - 24 hr 02/26/20 14:00 02/26/20 21:52 02/27/20 06:00 Temperature 36.6 C 36.6 C 36.1 C L Pulse Rate 63 60 60 Respiratory Rate 20 18 20 Blood Pressure 144/54 H 153/63 H 146/60 H Pulse Oximetry 100 100 99 02/27/20 08:00 Temperature Pulse Rate Respiratory Rate Blood Pressure Pulse Oximetry 98 Intake/Output Intake/Output: Intake & Output 02/24/20 02/25/20 02/26/20 02/27/20 23:59 23:59 23:59 23:59 Intake Total 9608 502 7847 780 Output Total 813 684 9810 2250 Balance 850 10 -443 -1615 Meds/Results Medications: Active Medications Generic Name Dose Route Start Last Admin Trade Name Freq PRN Reason Stop Dose Admin Acetaminophen 650 mg 02/24/20 12:16 02/26/20 15:10 Acetaminophen 325 Mg Tablet PO 650 mg Q4H PRN Administration Mild Pain (1-3) or Fever Hydrocodone Bitart/Acetaminophen 1 tab 02/24/20 12:16 02/25/20 20:51 Hydrocodone/Acetaminophen (*Crx) 5-325 Mg Tablet PO 1 tab Q4H PRN Administration Pain Rated 4-6 Aspirin 81 mg 02/25/20 09:00 02/27/20 08:04 Aspirin 81 Mg Chewable Tablet PO 81 mg DAILY CAITY Administration Atorvastatin Calcium 20 mg 02/25/20 09:00 02/27/20 08:04 Atorvastatin 20 Mg Tablet PO 20 mg DAILY CAITY Administration Budesonide/Formoterol Fumarate 2 puff 02/26/20 20:00 02/27/20 08:12 Budesonide/Form 160-4.5 Mcg (*Sp) INHALATION 2 puff Q12HRT CAITY Administration Dextrose 12.5 gm 02/24/20 13:59 Dextrose 50% 25 Gm/50 Ml Syringe IV PUSH PRN PRN Hypoglycemia Protocol Glimepiride 1 mg 02/25/20 09:00 02/27/20 08:04 Glimepiride 1 Mg Tablet PO 1 mg DAILY CAITY Administration Glucagon 1 mg 02/24/20 13:59 Glucagon For Inj 1 Mg Vial IM PRN PRN Hypoglycemia Protocol Glucose 15 gm 02/24/20 13:59 Glucose Oral Gel 15 Gm Of Glucse In 37.5 Gm Tube PO PRN PRN Hypoglycemia Protocol Heparin Sodium (Porcine) 5,000 units 02/24/20 22:00 02/27/20 06:18 Heparin Sodium 5,000 Units/Ml Vial SUB-Q 5,000 units Q8HR CAITY Administration Dextrose 1,000 mls @ 100 mls/hr 02/24/20 13:59 Dextrose 5% 1,000 Ml IVPB PRN PRN Hypoglycemia Protocol Insulin Aspart 2 - 5 units 02/24/20 17:00 02/27/20 08:02 Insulin Aspart (*Bkc) 100 Units/Ml SUB-Q 2 units TIDWM CAITY Administration Protocol Insulin Glargine 20 units 02/26/20 17:00 02/27/20 08:01 Insulin Glargine (*Bkc) 100 Units/Ml SUB-Q 20 units BID CAITY Administration Methylprednisolone Sodium Succinate 40 mg 02/26/20 21:00 02/27/20 08:04 Methylprednisolone Sod Succ 40 Mg Vial IV PUSH 40 mg Q12HR CAITY Administration Morphine Sulfate 4 mg 02/24/20 12:16 Morphine Sulfate (*Crx) 4 Mg/Ml Inj IV PUSH Q2H PRN Pain Rated 7-10 Multi-Ingred Cream/Lotion/Oil/Oint 1 applic 02/25/20 09:00 02/27/20 08:05 Eucerin Cream 120 Gm Jar TOPICAL 1 applic QAM CAITY Administration Ondansetron HCl 4 mg 02/24/20 12:16 Ondansetron Inj 4 Mg/2 Ml Vial IV PUSH Q4H PRN Nausea Pantoprazole Sodium 20 mg 02/25/20 09:00 02/27/20 08:04 Pantoprazole Sod Sesquihydrate 20 Mg Tab PO 20 mg DAILY CAITY Administration Radiology Results: ITS Impressions Chest X-Ray 02/24/20 11:13 IMPRESSION: No acute cardiopulmonary findings. Venous Doppler Study 02/24/20 14:52 IMPRESSION: 1. No deep venous thrombosis. Labs Labs: Laboratory Results
== END 2020-02-27 12:40 | disposition home health service (06) | DRG 189 ==
LOC: ANHED 10:18 → ANHIMU 17:11 → ANH2MED 02-25 15:33 → ANHIMU 03-02 16:35
PROVIDERS: Nurse Practitioner; Admitting Provider Family Medicine; Emergency Provider Emergency Medicine; Visit Provider Internal Medicine
DX: J96.21 Acute and chronic respiratory failure with hypoxia (principal); G93.41 Metabolic encephalopathy; N17.9 Acute kidney failure, unspecified; Z68.41 Body mass index [BMI] 40.0-44.9, adult; I50.32 Chronic diastolic (congestive) heart failure; I13.0 Hypertensive heart and chronic kidney disease with heart failure and stage 1 through stage 4 chronic kidney disease, or unspecified chronic kidney disease; J96.22 Acute and chronic respiratory failure with hypercapnia; Z20.828 Contact with and (suspected) exposure to other viral communicable diseases; E78.5 Hyperlipidemia, unspecified; E66.01 Morbid (severe) obesity due to excess calories; Z72.0 Tobacco use; J44.9 Chronic obstructive pulmonary disease, unspecified; R82.71 Bacteriuria; N18.9 Chronic kidney disease, unspecified; E11.22 Type 2 diabetes mellitus with diabetic chronic kidney disease
CPT/HCPCS: 36415; 36600; 51701; 71045; 80048; 80053; 81001; 82728; 82805; 82948; 83605; 83735; 84439; 84443; 84480; 85025; 85610; 85730; 87077; 87086; 87088; 87186; 87635; 93005; 93970; 94002; 94640; 96361; 96365; 96375; 97110; 97116; 97161; 97165; 97530; 97535; 99291; A9270; C9803; G0378; J0696; J1644; J1815; J1980; J2060; J2920; J2930; J7030; J7120; U0003

== ENCOUNTER 2020-03-03 11:48 | Inpatient (IN) | payer MEDICARE, MEDICAID, SELFPAY ==
[2020-03-03] VITALS (24 sets, daily range): BP systolic 98–137; BP diastolic 44–67; PULSE 66–110; RESP 17–33; TEMP 36.3–36.6; O2SAT 89–100; BMI 42.9
--- NOTE | ~2020-03-03 | XR_ITS ---
EXAMINATION: XR chest 1V EXAM DATE: 03/03/2020 12:58 INDICATION: Shortness of breath, COPD, CHF and hypertension. TECHNIQUE: Portable AP frontal chest x-ray was obtained. Comparison is made to prior examination from 02/24/2020. FINDINGS: The lungs are clear. There are no pleural effusions. Cardiac silhouette is prominent but magnified on this AP technique. There is no pneumothorax suspected. The bones and soft tissues are unremarkable. There is aortic arteriosclerosis. There are bony degenerative changes. IMPRESSION: No acute cardiopulmonary findings. Reviewed, dictated and finalized at location [facility]. UCTION PATTERN MAKER
--- NOTE | ~2020-03-03 | CT_ITS ---
EXAMINATION: CT brain wo con DATE: 03/03/2020 12:55 INDICATION: Confusion TECHNIQUE: Computed tomography (CT) of the head was performed without intravenous contrast. The mA wa s adjusted according to patient size. Iterative reconstruction technique was employed. Exam dose: 60 5.33 mGy-cm total exam DLP. COMPARISON: 12/22/2019 MRI brain/brainstem 12/20/2019 CT brain FINDINGS: Chronic left thalamic lacunar infarcts. Bilateral carotid siphon prominent internal carotid artery calcification. There is patchy nonspecific diminished attenuation of the subcortical and periventricular cerebral wh ite matter, likely due to chronic small vessel ischemic changes. No intracranial mass lesion or hemorrhage, midline shift or mass effect is evident. No subdural or epidural hematoma. No fracture or bone destruction of the cranial vault. There is mild focal posterior left ethmoidal air cell opacification. Up to approximately 12.7 mm mucu s retention cyst or polyp in the inferior aspect of the left maxillary sinus. The paranasal sinuses a nd mastoid air cells are otherwise unremarkable. IMPRESSION: Cerebral atherosclerosis and chronic small vessel ischemic changes of the cerebral white matter Chronic left thalamic lacunar infarcts Reviewed, dictated and finalized at [facility]. Reviewed, dictated and finalized at location [facility]. ERY WORKER
--- NOTE | 2020-03-03 12:21 | ECG_ITS ---
Measurements Intervals Freedom Rate: 101 P: 59 CT: 139 QRS: -29 QRSD: 94 T: 32 QT: 330 QTc: 429 Interpretive Statements SINUS TACHYCARDIA POSSIBLE LEFT ATRIAL ENLARGEMENT LOW QRS VOLTAGE IN PRECORDIAL LEADS BORDERLINE R WAVE PROGRESSION, ANTERIOR LEADS MINIMAL Q WAVES- HIGH LATERAL LEADS INFERIOR INFARCT, AGE INDETERMINATE BASELINE WANDER- V2-V3, V6 ABNORMAL ECG Electronically Signed On 03-03-2020 13:44:18 LIBRARY SCIENCE PROFESSOR by Monroe Kessler D.O.
[2020-03-03 12:46] LABS: Hematocrit 35.2 % (37.0-47.0); Hemoglobin 10.6 g/dL (12.0-15.0); Mean Corpuscular HGB Conc 30.1 g/dl (32-36); Mean Corpuscular Hemoglobin 28.9 pg (26-34); Mean Corpuscular Volume 95.9 fl (80-100); Platelet Count Result 227 k/mm3 (150-375); Red Blood Count 3.67 M/mm3 (4.2-5.4); Red Cell Distribution Width 15.3 % (11.5-14.5); White Blood Count 20.8 K/mm3 (4.5-10.0)
[2020-03-03 12:54] LABS: Add Urine Microscopic? YES; Appearance Urine Turbid (Clear); Bacteria Urine 2+ /hpf; Bilirubin Urine Negative (Negative); Blood Urine 1+ (Negative); Color Urine Yellow (Yellow); Glucose Urine UA 3+ mg/dL (Negative); Ketones Urine Negative (Negative); Leukocyte Esterase Ur 3+ LEU/UL (Negative); Nitrate Urine Positive (Negative); Protein Urine 2+ mg/dL (Negative); RBC Urine 21-50 /hpf (0-2); Specific Grav Ur 1.012 (1.001-1.035); Urobilinogen Urine Negative mg/dL (<2.0); WBC Clumps Urine Present /HPF; WBC Urine >75 /hpf
[2020-03-03 12:57] LABS: INR 0.9; Lactic Acid Reflex 1.5 mmol/L (0.7-2.1); Prothrombin Time 12.5 Seconds (11.1-14.7)
[2020-03-03 12:59] LABS: Alanine Aminotransferase 54 U/L (4-35); Albumin Level 3.6 g/dL (3.5-5.1); Alkaline Phosphatase 244 U/L (38-126); Anion Gap 5 mmol/L (8-16); Aspartate Amino Transferase 56 U/L (14-36); Bilirubin,Total 0.5 mg/dL (0.2-1.3); Blood Urea Nitrogen 64 mg/dL (7-17); Calcium 9.1 mg/dL (8.4-10.2); Carbon Dioxide 32 mmol/L (22-30); Chloride 103 mmol/L (98-107); Estimated Glomerular Filt Rate 26; Glucose 148 mg/dL (65-105); Potassium 4.1 mmol/L (3.4-5.0); Sodium 140 mmol/L (137-145)
[2020-03-03 13:00] LABS: Band Neutrophils Percent 2 % (0-6); Lymphocytes Absolute Manual 0.62 K/mm3 (1.1-4.5); Monocytes Absolute Manual 0.41 K/mm3 (0.1-0.90); Monocytes Percent Manual 2 % (3-9); Neutrophils Absolute Manual 19.76 K/mm3 (1.7-7.2); Neutrophils Percent Manual 93 % (46-73); Platelet Estimate Adequate (Adequate); Total Cells Counted 100
[2020-03-03 13:01] LABS: Anisocytosis 1+ (NORMAL)
[2020-03-03 13:11] LABS: NT Pro B Type Natriuretic Pept 321 PG/ML (5-100); Troponin I < 0.012 ng/mL (0.000-0.034)
--- NOTE | 2020-03-03 13:15 | PC.NURSE ---
patient here with increased confusion. see initial notes. patient being treated for UTI but now not taking PO meds at home or eating. EMS brought patient to ED. patient arouses to voice but appears to be A/O x 1-2. EMS stated this is her baseline.
[2020-03-03] MEDS: SODIUM CHLORIDE 0.9% IV 1,000 ML 999 ML IV CONT ×2 (13:18→18:54)
--- NOTE | 2020-03-03 13:59 | PC.NURSE ---
all tests resulted. IV antibiotics started. IVF continue. on field party manager.
--- NOTE | 2020-03-03 14:16 | ED.AMS ---
HPI - Altered Mental Status General Chief Complaint: Urogenital-Female Stated Complaint: Complications of UTI Time Seen by Provider: 03/03/20 11:49 Source: patient and EMS Mode of arrival: EMS Limitations: clinical condition History of Present Illness HPI narrative: 69-year-old with a history of diabetes, hypertension, recent urinary tract infection was brought from home with complaints of altered mental status, not feeling well. Patient was seen in the hospital not too long ago was diagnosed with urinary tract infection and was placed on outpatient antibiotic however patient was unable to keep any medication of fluids down and she has been found confused since this morning. Patient denies any headache, chest pain, shortness of breath. MD complaint: altered mental status Severity: moderate Associated symptoms: denies other symptoms Related Data Allergies Allergy/AdvReac Type Severity Reaction Status Date / Time No Known Allergies Allergy Verified 03/03/20 13:36 Review of Systems Review of Systems: All systems reviewed & are unremarkable except as noted in HPI and below Constitutional: Constitutional: Reports as per HPI ENT: Reports system reviewed and no additional complaints, except as documented Cardiovascular: Cardiovascular: Reports no additional cardiovascular complaints Respiratory: Respiratory: Reports no additional respiratory complaints Gastrointestinal: Gastrointestinal: Reports no additional gastrointestinal complaints PMFSH Past Medical History Medical History Chronic obstructive pulmonary disease Diabetic retinopathy 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 Diastolic congestive heart failure History of colon polyps History of peptic ulcer disease Hyperlipidemia Hypertension Insulin dependent diabetes mellitus Morbid obesity Neuropathy Overactive bladder Tobacco abuse Surgical History Surgical History History of cholecystectomy Family History Family History Mother Emphysema/COPD Father Carcinoma of colon Sibling Diabetes mellitus Social History Social History Social History: Surrogate decision maker: Yfn Cheung, nephew. Code status: Full code. Smoking packs per day: 2 Smoking cigarettes per day: 40.0 Years smoked: 58 Smoking pack-years: 116.00 Smoking status: Current every day smoker Tobacco type: cigarettes Second hand tobacco smoke exposure: Yes Alcohol intake: never Substance use: never Substance use type: does not use Additional living arrangements comments: Lives in a senior apartment in [place]. Reportedly independent of ADLs. Ambulates mainly with an electric scooter. Gender identity (if verbalized by the patient): Female Spiritual care concerns: No Exam Narrative: Exam Narrative: GENERAL:Lethargic, obese , and in no acute distress.smells urine HEAD: Normocephalic, atraumatic. EYES: PERRLA and EOMI. NECK: Supple. CHEST: Coarse breath sounds. No respiratory distress. HEART: Regular rate and rhythm. No murmur heard. Normal peripheral pulses. ABDOMEN: Soft, nontender, nondistended, normal active bowel sounds. EXTREMITIES: Normal range of motion. No edema. SKIN: Warm, dry, no rash. NEURO: No focal deficits. Alert and oriented x3. PSYCH: Normal mood and affect. Course Course Emergency Course: Patient comfortably lying in bed in no distress informed her about the lab work and x-ray findings we will admit her to the hospital for SIRS start on Zosyn. Discussed with Naz agreed to admit the pt. Vital Signs Vital signs: Vital Signs Temperature 36.6 C 03/03/20 12:58 Pulse Rate 110 H 03/03/20 12:58 Respiratory Rate 22 H 03/03/20 12:58 Blood Pressure 110/58 L 03/03/20 12:58 Pulse Oximetry 89 L 03/03/20
--- NOTE | 2020-03-03 15:15 | PC.NURSE ---
RN not available for report. she will call back.
--- NOTE | 2020-03-03 17:16 | ADMGEN ---
This patient, Sherrie Muniz, was admitted to IMU Room 201-01. Patient/family oriented to hospital policies and general routines including ID bracelet, bed and alarms, visiting hours, pain management, procedures, bathroom and other care routines, personal items, smoking policy, room service/diet, and visiting hours. Information on how to activate the Rapid Response Team has been discussed. Patient/Family are encouraged to report perceived risks to care and to ask questions if they do not understand what they are told or what they should do.
--- NOTE | 2020-03-03 18:05 | PM.IMHP ---
H&P: HPI History of Present Illness Date/Time: 03/03/20 18:05 Chief Complaint: lethargy, altered mental status Narrative: Date of admission and visit 03/03 1730. Sherrie Muniz is a 69 year old female with type 2 diabetes, COPD, and history of UTI presented to the emergency room with altered mental status. She with felt to be septic from a UTI with metabolic encephalopathy and admitted to IMU. All her previous admissions in December and February she presented similarly with pyuria but was found to have respiratory failure with CO2 retention. With her last admission her mental status changes were thought to be all secondary to her hypercapnea. She denies any cough fever chills but history is unreliable because she is very lethargic and some of her answers are obviously inappropriate. Denies any urinary symptoms also. Or chest pain. Denies any nausea vomiting. In the emergency room she was given a L of fluid cultured and placed on Zosyn and admitted. Review of Systems Review of Systems: Narrative: Review of systems as well as can be trusted given her mental status Constitutional said her weight has been steady appetite okay prior to present illness Eye no double vision or sc[place]oma Mouth no pharyngitis laryngitis Pulmonary no increased shortness breath wheezing or cough CV no chest pain or palpitation GI no melena hematochezia diarrhea or constipation denies any dysuria hematuria Muscle skeletal no particular joint discomfort Integument no skin breakdown rashes chronic venous stasis changes lower extremities Neuro no history of seizures or syncope PMFSH Past Medical History Medical History Chronic obstructive pulmonary disease Diabetic retinopathy 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 Diastolic congestive heart failure History of colon polyps History of peptic ulcer disease Hyperlipidemia Hypertension Insulin dependent diabetes mellitus Morbid obesity Neuropathy Overactive bladder Tobacco abuse Surgical History Surgical History History of cholecystectomy Family History Family History (Updated 03/03/20 @ 17:15 by Tish Min RN) Mother Emphysema/COPD Father Carcinoma of colon Sibling Diabetes mellitus Social History Social History Social History: Surrogate decision maker: Yfn Cheung, nephew. Code status: Full code. Smoking packs per day: 1.5 Smoking cigarettes per day: 30.0 Years smoked: 47 Smoking pack-years: 70.50 Smoking status: Current every day smoker Tobacco type: cigarettes Second hand tobacco smoke exposure: Yes Alcohol intake: unknown Substance use: unknown Substance use type: does not use Additional living arrangements comments: Lives in a senior apartment in [place]. Reportedly independent of ADLs. Ambulates mainly with an electric scooter. Gender identity (if verbalized by the patient): Female Spiritual care concerns: No Meds Home Medications and Allergies Home Medications Medication Instructions Recorded Confirmed Type Adults Multivitamin 1 tablet PO DAILY 30 Days #30 02/27/20 03/03/20 Rx tablet Tresiba FlexTouch U-100 14 unit SUBCUT DAILY 30 Days #3 ml 02/27/20 03/03/20 Rx acetaminophen [Tylenol] 325 mg PO Q4-6H PRN 30 Days #30 02/27/20 03/03/20 Rx tablet allopurinol 100 mg PO DAILY 30 Days #30 tablet 02/27/20 03/03/20 Rx aspirin 81 mg PO DAILY 30 Days #30 tablet 02/27/20 03/03/20 Rx atorvastatin 20 mg PO DAILY 30 Days #30 tablet 02/27/20 03/03/20 Rx chlorthalidone 25 mg PO DAILY 30 Days #30 tablet 02/27/20 03/03/20 Rx cholecalciferol (vitamin D3) 1,000 unit PO DAILY 30 Days #30 cap 02/27/20 03/03/20 Rx [Vitamin D3] gabapentin 300 mg PO TID 30 Days #90 cap 02/27/20 03/03/20 Rx glimepiride 1 mg PO DAILY 30 Days #30 tablet 02/27/20 03/03/20 Rx lisinopr
[2020-03-03 18:13] LABS: Alveolar/Arterial O2 Gradient 69.1 mmHg; Base Excess ABG -1.3 mEq/l (+/-2.0); Fractional Inspired Oxygen 28 %; HCO3 ABG 24.2 mEq/l (22.0-26.0); Oxygen Content ABG 14.1 %vol (16.0-22.0); Oxygen Saturation ABG 95.2 % (95.0-100.0); Oxyhemoglobin 94.3 % THb (90.0-100.0); PCO2 ABG 43.8 mmHg (35.0-45.0); PO2 ABG 78.9 mmHg (80.0-100.0); PO2 FiO2 Ratio Arterial Blood 2.82 %; Total Hemoglobin 10.6 g/dL (12.0-18.0)
[2020-03-03 18:14] LABS: Modified Allen's Test Pass; Site Drawn RIGHT RADIAL
[2020-03-03 18:15] LABS: Device NASAL CANNULA
[2020-03-03 18:59] LABS: Glucose Point of Care 106 (65-105)
[2020-03-03 20:21] LABS: Glucose Point of Care 97 (65-105)
[2020-03-03] MEDS: SODIUM CHLORIDE 0.9% IV 1,000 ML 125 ML IV CONT (20:21)
[2020-03-03] MEDS: ENOXAPARIN 30 MG/0.3 ML SYRINGE SUB-Q (20:55)
[2020-03-04] VITALS (14 sets, daily range): BP systolic 123–131; BP diastolic 55–98; PULSE 57–75; RESP 18–20; TEMP 36.2–36.5; O2SAT 91–100
[2020-03-04] MEDS: SODIUM CHLORIDE 0.9% IV 1,000 ML 125 ML IV CONT ×3 (03:59→23:55)
[2020-03-04 05:19] LABS: Basophils Percent Auto 0.2 % (0.2-1.2); Eosinophils Absolute Auto 0.1 K/mm3 (0-0.3); Eosinophils Percent Auto 1.2 % (0-4.4); Hematocrit 31.2 % (37.0-47.0); Hemoglobin 9.6 g/dL (12.0-15.0); Hemoglobin A1C 6.5 % (<5.7); Immature Granulocyte Absolute 0.05 K/mm3 (0.00-0.031); Immature Granulocyte Percent A 0.4 % (0-0.5); Lymphocytes Absolute Auto 2.12 K/mm3 (0.9-3.2); Lymphocytes Percent Auto 17.5 % (18.3-44.2); Mean Corpuscular HGB Conc 30.8 g/dl (32-36); Mean Corpuscular Hemoglobin 29.5 pg (26-34); Mean Platelet Volume 11.5 fl (7.4-10.4); Monocytes Absolute Auto 0.6 K/mm3 (0.1-0.6); Monocytes Percent Auto 4.6 % (2.6-8.5); Neutrophils Absolute Auto 9.2 K/mm3 (1.3-6.7); Neutrophils Percent Auto 76.1 % (45.5-73.1); Platelet Count Result 190 k/mm3 (150-375); Red Blood Count 3.25 M/mm3 (4.2-5.4); Red Cell Distribution Width 15.1 % (11.5-14.5); White Blood Count 12.1 K/mm3 (4.5-10.0)
[2020-03-04 05:43] LABS: Anion Gap 2 mmol/L (8-16); Blood Urea Nitrogen 50 mg/dL (7-17); Calcium 8.4 mg/dL (8.4-10.2); Carbon Dioxide 28 mmol/L (22-30); Chloride 108 mmol/L (98-107); Estimated CRCL calculation 41 ml/min; Estimated Glomerular Filt Rate 38; Glucose 68 mg/dL (65-105); Potassium 4.1 mmol/L (3.4-5.0); Sodium 138 mmol/L (137-145)
[2020-03-04 08:12] LABS: Glucose Point of Care 77 (65-105)
[2020-03-04] MEDS: ASPIRIN 81 MG CHEWABLE TABLET PO (09:33)
[2020-03-04] MEDS: ACETAMINOPHEN 325 MG TABLET 650 MG PO (09:42)
[2020-03-04] MEDS: OXYBUTYNIN CHLORIDE 5 MG TABLET PO (11:14)
[2020-03-04] MEDS: CHOLECALCIFEROL 1,000 UNITS TABLET 1000 UNITS PO (11:15)
[2020-03-04] MEDS: allopurinoL 100 MG TABLET PO (11:15)
[2020-03-04] MEDS: PANTOPRAZOLE SOD SESQUIHYDRATE 20 MG TAB PO (11:15)
[2020-03-04] MEDS: ATORVASTATIN 20 MG TABLET PO (11:48)
[2020-03-04 11:57] LABS: Glucose Point of Care 88 (65-105)
[2020-03-04] MEDS: GABAPENTIN 300 MG CAPSULE PO ×2 (13:32→17:41)
--- NOTE | 2020-03-04 14:35 | PM.IMPN ---
Progress Note: A&P Assessment and Plan (1) Sepsis: Code(s): A41.9 - Sepsis, unspecified organism Status: Acute Assessment and Plan: As evidence by leukocytosis, tachypnea, tachycardia. Possibly secondary to UTI with the pyuria. Blood and urine cultures have been obtained and Zosyn has been started. Lactic acid was normal and blood pressure has elevated with hydration (2) UTI (urinary tract infection): Qualifiers: Hematuria presence: without hematuria Urinary tract infection type: site unspecified Qualified Code(s): N39.0 - Urinary tract infection, site not specified Code(s): N39.0 - Urinary tract infection, site not specified Status: Acute Assessment and Plan: Marked pyuria with cultures obtained antibiotics started but still pending (3) Diastolic congestive heart failure: Code(s): I50.30 - Unspecified diastolic (congestive) heart failure Status: Acute Assessment and Plan: Chronic diastolic heart failure with echo in December this year with a normal ejection fraction hydrate aggressively and watch for signs of fluid overload (4) Insulin dependent diabetes mellitus: Status: Acute Assessment and Plan: Sliding scale and A1c 6.5, holding oral hypoglycemics (5) Normocytic anemia: Code(s): D64.9 - Anemia, unspecified Status: Acute Assessment and Plan: Thought secondary to anemia chronic disease unchanged and continue to monitor (6) Acute kidney injury: Code(s): N17.9 - Acute kidney failure, unspecified Status: Acute Assessment and Plan: Creatinine 1.9 since with the same as it was over the last month but pre renal by indices so continue to hydrate with creatinine fallen to 1.5 today (7) Metabolic encephalopathy: Code(s): G93.41 - Metabolic encephalopathy Status: Acute Assessment and Plan: on the basis of her sepsis. With hydration aggressively and antibiotics mental status has returned to normal today. Ct brain unremarkable (8) Chronic obstructive pulmonary disease: Qualifiers: COPD type: unspecified COPD Qualified Code(s): J44.9 - Chronic obstructive pulmonary disease, unspecified Code(s): J44.9 - Chronic obstructive pulmonary disease, unspecified Status: Acute Assessment and Plan: CO2 Retention but pH is normal at 7.36 so hypercapnia is not causing her mental status changes. And saturating well now on room air (9) DVT prophylaxis: Code(s): Z29.9 - Encounter for prophylactic measures, unspecified Status: Acute Assessment and Plan: [place] Subjective Date/time seen: 03/04/20 14:35 Interval history: Date of visit 03/04 69-year-old hypertensive type 2 diabetic admitted with altered mental status found to be septic probable urinary tract source. She was very somnolent yesterday but today alert and requesting to go home. Feels much better in general hungry and wanting to get up out of bed Exam Narrative: Exam Narrative: Blood pressure 124/60 pulse is 62 respirations 16 per minute afebrile sat 92% RA Pupils equal reactive light Anicteric Neck supple Lungs clear CV regular rate rhythm no murmur Abdomen is soft obese nontender bowel sounds present no masses Extremities venous stasis changes bilaterally chronic thickened skin warm slightly erythematous with dorsalis pedis posterior tibial 1+ but less edematous than yesterday Neur0 alert and oriented with no focal deficits today Integument as above with the venous stasis changes no other skin breakdown Objective Data Vital Signs Vital Signs: Vital Signs - 24 hr 03/03/20 14:45 03/03/20 14:46 03/03/20 15:00 Temperature Pulse Rate 84 83 91 Respiratory Rate 24 H 20 17 Blood Pressure 121/57 L Pulse Oximetry 98 98 03/03/20 15:01 03/03/20 15:50 03/03/20 16:00 Temperature 36.5 C Pulse Rate 88 72 85 Respiratory Rate 19 22 H Blood Pressure 108/55 L 98/67 L Pulse Oxime
[2020-03-04 17:11] LABS: Glucose Point of Care 210 (65-105)
[2020-03-04] MEDS: INSULIN ASPART (*BKC) 100 UNITS/ML SUB-Q (17:42)
[2020-03-04 19:38] LABS: Glucose Point of Care 321 (65-105)
[2020-03-04] MEDS: ENOXAPARIN 40 MG/0.4 ML SYRINGE SUB-Q (19:52)
[2020-03-05 03:09] VITALS: BP 143/45; PULSE 61; RESP 20; TEMP 36.6; O2SAT 98
[2020-03-05 05:08] LABS: Basophils Percent Auto 0.3 % (0.2-1.2); Eosinophils Absolute Auto 0.1 K/mm3 (0-0.3); Hematocrit 30.2 % (37.0-47.0); Hemoglobin 9.2 g/dL (12.0-15.0); Immature Granulocyte Absolute 0.04 K/mm3 (0.00-0.031); Immature Granulocyte Percent A 0.6 % (0-0.5); Lymphocytes Absolute Auto 1.42 K/mm3 (0.9-3.2); Lymphocytes Percent Auto 22.2 % (18.3-44.2); Mean Corpuscular HGB Conc 30.5 g/dl (32-36); Mean Corpuscular Hemoglobin 29.8 pg (26-34); Mean Corpuscular Volume 97.7 fl (80-100); Mean Platelet Volume 11.1 fl (7.4-10.4); Monocytes Absolute Auto 0.5 K/mm3 (0.1-0.6); Monocytes Percent Auto 7.8 % (2.6-8.5); Neutrophils Absolute Auto 4.3 K/mm3 (1.3-6.7); Neutrophils Percent Auto 67.1 % (45.5-73.1); Platelet Count Result 179 k/mm3 (150-375); Red Blood Count 3.09 M/mm3 (4.2-5.4); Red Cell Distribution Width 15.5 % (11.5-14.5); White Blood Count 6.4 K/mm3 (4.5-10.0)
[2020-03-05 05:52] LABS: Alanine Aminotransferase 117 U/L (4-35); Albumin Level 2.9 g/dL (3.5-5.1); Alkaline Phosphatase 257 U/L (38-126); Anion Gap 4 mmol/L (8-16); Aspartate Amino Transferase 58 U/L (14-36); Bilirubin,Total 0.4 mg/dL (0.2-1.3); Blood Urea Nitrogen 37 mg/dL (7-17); Calcium 8.3 mg/dL (8.4-10.2); Carbon Dioxide 26 mmol/L (22-30); Chloride 105 mmol/L (98-107); Estimated CRCL calculation 32 ml/min; Estimated Glomerular Filt Rate 35; Glucose 213 mg/dL (65-105); Potassium 4.3 mmol/L (3.4-5.0); Sodium 135 mmol/L (137-145)
[2020-03-05 08:00] VITALS: BP 146/67; PULSE 53; RESP 20; TEMP 36.4; O2SAT 100
[2020-03-05] MEDS: GABAPENTIN 300 MG CAPSULE PO (08:27)
[2020-03-05] MEDS: PANTOPRAZOLE SOD SESQUIHYDRATE 20 MG TAB PO (08:27)
[2020-03-05] MEDS: ATORVASTATIN 20 MG TABLET PO (08:27)
[2020-03-05] MEDS: OXYBUTYNIN CHLORIDE 5 MG TABLET PO (08:27)
[2020-03-05] MEDS: allopurinoL 100 MG TABLET PO (08:27)
[2020-03-05] MEDS: CHOLECALCIFEROL 1,000 UNITS TABLET 1000 UNITS PO (08:27)
[2020-03-05] MEDS: lisinopriL 20 MG TABLET 40 MG PO (08:27)
[2020-03-05] MEDS: ASPIRIN 81 MG CHEWABLE TABLET PO (08:27)
[2020-03-05 09:26] LABS: Glucose Point of Care 172 (65-105)
[2020-03-05] MEDS: ERTAPENEM 1 GM/NS 50 ML 1 GM/50 ML BAG IVPB (10:05)
--- NOTE | 2020-03-05 18:33 | PM.DS ---
DS: Admitting Diagnosis Admitting Diagnosis Admitting Diagnosis: Altered mental status with sepsis DS: Discharge Diagnosis Discharge Diagnosis (1) Sepsis: Code(s): A41.9 - Sepsis, unspecified organism Status: Acute Assessment and Plan: As evidence by leukocytosis, tachypnea, tachycardia. Thought secondary to UTI. Urine culture grew ESBL E coli intermediate sensitive to Zosyn which had been placed on originally. With a Zosyn her white count fell and she steadily improved. Thus after 3 days of IV antibiotics with negative blood cultures we discharge her home on Augmentin 875 b.i.d. for 7 more days for 10 day total treatment Lactic acid was normal and blood pressure has elevated with hydration (2) UTI (urinary tract infection): Qualifiers: Hematuria presence: without hematuria Urinary tract infection type: site unspecified Qualified Code(s): N39.0 - Urinary tract infection, site not specified Code(s): N39.0 - Urinary tract infection, site not specified Status: Acute Assessment and Plan: Marked pyuria and urine culture grew ESBL E coli intermediate sensitive to Zosyn which she responded quite well to and was discharged on Augmentin again with intermediate sensitivity for total ten-day treatment (3) Diastolic congestive heart failure: Code(s): I50.30 - Unspecified diastolic (congestive) heart failure Status: Acute Assessment and Plan: Chronic diastolic heart failure with echo in December this year with a normal ejection fraction hydrated aggressively and she displayed no signs of fluid overload and factor peripheral edema subsided (4) Insulin dependent diabetes mellitus: Status: Acute Assessment and Plan: A1c 6.5, and held her oral hypoglycemic while admitted. Sugars maintain on sliding scale and on discharge she will resume her glimepiride and Tresiba 14 units daily. (5) Normocytic anemia: Code(s): D64.9 - Anemia, unspecified Status: Acute Assessment and Plan: Thought secondary to anemia chronic disease unchanged and continue to monitor (6) Acute kidney injury: Code(s): N17.9 - Acute kidney failure, unspecified Status: Acute Assessment and Plan: Creatinine 1.9 since with the same as it was over the last month but pre renal by indices so continued to hydrate with creatinine falling to 1.5 at discharge (7) Metabolic encephalopathy: Code(s): G93.41 - Metabolic encephalopathy Status: Acute Assessment and Plan: on the basis of her sepsis. With hydration aggressively and antibiotics mental status has returned to normal 03/04. Ct brain unremarkable (8) Chronic obstructive pulmonary disease: Qualifiers: COPD type: unspecified COPD Qualified Code(s): J44.9 - Chronic obstructive pulmonary disease, unspecified Code(s): J44.9 - Chronic obstructive pulmonary disease, unspecified Status: Acute Assessment and Plan: CO2 Retention but pH is normal at 7.36 so hypercapnia is not causing her mental status changes. And saturating well now on room air DS: Summary Hospital Course Hospital Course: Date of discharge and date of visit 03/05 69-year-old diabetic with hypertension admitted with sepsis urinary tract origin. White count elevated 20,000 and she had altered mental status. Creatinine fell from 1.9-1.5 with hydration and white count dropped to 6.4 by discharge. Blood cultures were no growth but urine grew ESBL E coli intermediate sensitive to Zosyn which she responded well to, thus she was transition to oral Augmentin to complete a 10 day course. She will have a BMP drawn within 1 week and follow with primary care within 2 weeks activity as tolerated Time Spent with Patient Time attestation: Total time spent providing and/or coordinating discharge services: 35 minutes Exam Narrative: Exam Narrative: Condition on discharge Blood pressure 146/86 pulse is 54 saturating 100
== END 2020-03-05 12:17 | disposition home or self-care (01) | DRG 871 ==
LOC: ANHED 14:24 → ANHIMU 15:00
PROVIDERS: Admitting Provider Family Medicine; Emergency Provider Family Medicine; PCP Internal Medicine; Visit Provider Internal Medicine
DX: A41.9 Sepsis, unspecified organism (principal); G93.41 Metabolic encephalopathy; N17.9 Acute kidney failure, unspecified; I50.32 Chronic diastolic (congestive) heart failure; N39.0 Urinary tract infection, site not specified; B96.20 Unspecified Escherichia coli [E. coli] as the cause of diseases classified elsewhere; I11.0 Hypertensive heart disease with heart failure; D63.8 Anemia in other chronic diseases classified elsewhere; J44.9 Chronic obstructive pulmonary disease, unspecified; F17.210 Nicotine dependence, cigarettes, uncomplicated; E78.5 Hyperlipidemia, unspecified; E11.319 Type 2 diabetes mellitus with unspecified diabetic retinopathy without macular edema; E11.40 Type 2 diabetes mellitus with diabetic neuropathy, unspecified; Z79.82 Long term (current) use of aspirin; Z79.84 Long term (current) use of oral hypoglycemic drugs; Z79.899 Other long term (current) drug therapy
CPT/HCPCS: 36415; 36600; 70450; 71045; 80048; 80053; 80076; 81001; 82805; 83036; 83605; 83880; 84484; 85025; 85610; 87040; 87077; 87086; 87088; 87186; 93005; 96361; 96365; 97110; 97161; 97165; 97535; 99285; A9270; J1335; J1650; J1815; J2543; J7030

== ENCOUNTER 2020-04-22 15:27 | Inpatient (IN) | payer MEDICARE, MEDICAID, SELFPAY ==
[2020-04-22] VITALS (7 sets, daily range): BP systolic 143–188; BP diastolic 58–89; PULSE 69–94; RESP 18–20; TEMP 36.6–37.1; O2SAT 90–100; BMI 38.5
--- NOTE | ~2020-04-22 | US_ITS ---
EXAMINATION: US venous doppler [facility] DATE: 04/23/2020 11:39 INDICATION: Bilateral lower limb swelling TECHNIQUE: Mcfarland scale images without and with compression and Doppler images of the bilateral lower e xtremity veins were obtained. COMPARISON: 02/24/2020 FINDINGS: The right common femoral vein, profunda femoral vein, femoral vein, popliteal vein, peroneal trunk, p osterior tibial veins, and greater saphenous vein are patent. The left common femoral vein, profunda femoral vein, femoral vein, popliteal vein, peroneal trunk, po sterior tibial veins, and greater saphenous vein are patent. IMPRESSION: 1. Patent bilateral lower extremity veins. No evidence of deep venous thrombosis. Reviewed, dictated and finalized at location A. UCT TRAINER IMPRESSION: 1. Patent bilateral lower extremity veins. No evidence of deep venous thrombosi s.
--- NOTE | ~2020-04-22 | XR_ITS ---
EXAMINATION: XR chest 2V EXAM DATE: 04/22/2020 16:07 INDICATION: Transient alteration of awareness. History of COPD, CHF, hypertension. TECHNIQUE: Frontal and lateral projections of the chest obtained and reviewed. Comparison is made to prior examination from 03/03/2020. FINDINGS: The lungs are clear. There are no pleural effusions. Cardiac silhouette is prominent but magnified on this AP technique. There is no pneumothorax suspected. There are bony degenerative ch anges. There is aortic arteriosclerosis. Accounting for differences in technique, there is no signi ficant interval change. IMPRESSION: No acute cardiopulmonary findings. Reviewed, dictated and finalized at location A. [employer] ASSESSMENT
--- NOTE | ~2020-04-22 | CT_ITS ---
EXAMINATION: CT brain wo con INDICATION: Headache COMPARISON: None TECHNIQUE: Standard unenhanced head CT. The dose-length product (DLP) was 681.00 mGy-cm. The mA was a djusted according to patient size. Iterative reconstruction technique was employed. FINDINGS: There is no acute intraparenchymal hemorrhage. No evidence of mass lesion. No evidence of a cute infarction. There is an old lacunar infarct of the left thalamus. There is mild periventricular and subcortical hypodensity probably related to small vessel ischemic disease. There is mild prominen ce of the sulci and ventricles related to cerebral atrophy. Intracranial calcified cerebral atheroscl erosis is noted. There are no extra-axial collections. There is no mass effect or midline shift. Barnes ges in the right globe are likely from ocular lens surgery. The visualized sinuses and mastoid air c ells are well aerated. IMPRESSION: 1. 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 2. Age related findings. Reviewed, dictated and finalized at location A. [employer] IMPRESSION: 1. Old lacunar infarct of the left thalamus without acute intracranial abnormal ity. 2. Age related findings.
--- NOTE | 2020-04-22 15:34 | ECG_ITS ---
Measurements Intervals [place] Rate: 82 P: 46 [place]: 146 QRS: -23 QRSD: 94 T: 35 QT: 362 QTc: 425 Interpretive Statements SINUS RHYTHM POSSIBLE LEFT ATRIAL ENLARGEMENT INCOMPLETE RIGHT BUNDLE BRANCH BLOCK LOW QRS VOLTAGE IN PRECORDIAL LEADS ANTERIOR INFARCT, AGE INDETERMINATE BASELINE ARTIFACT- I, II, AVR, AVL, AVF, V1, V3-V6 ABNORMAL ECG Electronically Signed On 04-22-2020 19:44:57 DOCUMENT IMAGING SPECIALIST by Monroe Kessler D.O.
[2020-04-22 16:00] LABS: Basophils Percent Auto 0.2 % (0.2-1.2); Hematocrit 37.9 % (37.0-47.0); Hemoglobin 11.6 g/dL (12.0-15.0); Immature Granulocyte Absolute 0.02 K/mm3 (0.00-0.031); Immature Granulocyte Percent A 0.4 % (0-0.5); Lymphocytes Absolute Auto 0.64 K/mm3 (0.9-3.2); Lymphocytes Percent Auto 12.3 % (18.3-44.2); Mean Corpuscular HGB Conc 30.6 g/dl (32-36); Mean Corpuscular Hemoglobin 27.6 pg (26-34); Mean Platelet Volume 9.5 fl (7.4-10.4); Monocytes Absolute Auto 0.3 K/mm3 (0.1-0.6); Monocytes Percent Auto 5.6 % (2.6-8.5); Neutrophils Absolute Auto 4.2 K/mm3 (1.3-6.7); Neutrophils Percent Auto 81.5 % (45.5-73.1); Platelet Count Result 180 k/mm3 (150-375); Red Blood Count 4.21 M/mm3 (4.2-5.4); Red Cell Distribution Width 14.4 % (11.5-14.5); White Blood Count 5.2 K/mm3 (4.5-10.0)
--- NOTE | 2020-04-22 16:06 | ED.GENADULT ---
HPI - General Adult General Chief complaint: Unspecified Stated complaint: ALOC Time Seen by Provider: 04/22/20 15:33 Source: patient Mode of arrival: ambulatory Limitations: no limitations History of Present Illness HPI narrative: Patient is a 69-year-old female who presents with altered mental status patient lives at home [facility] and due to worsening mentation over the last 3 days not ambulating is much more confused patient on arrival is alert and oriented to person place. Patient has no complaints denies any pain patient had recently had a similar occurrence with a urinary tract infection and reportedly did not take all of her new antibiotics patient does not appear distressed or uncomfortable on arrival Related Data Allergies Allergy/AdvReac Type Severity Reaction Status Date / Time No Known Allergies Allergy Verified 04/22/20 15:45 Review of Systems Review of Systems: Narrative: Somewhat limited due to clinical condition All systems reviewed & are unremarkable except as noted in HPI and below PMFSH Past Medical History Medical History Chronic obstructive pulmonary disease Diabetic retinopathy 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 Diastolic congestive heart failure History of colon polyps History of peptic ulcer disease Hyperlipidemia Hypertension Insulin dependent diabetes mellitus Morbid obesity Neuropathy Overactive bladder Tobacco abuse Surgical History Surgical History History of cholecystectomy Family History Family History (Updated 03/03/20 @ 17:15 by Tish Min RN) Mother Emphysema/COPD Father Carcinoma of colon Sibling Diabetes mellitus Social History Social History Social History: Surrogate decision maker: Yfn Cheung, nephew. Code status: Full code. Smoking packs per day: 1.5 Smoking cigarettes per day: 30.0 Years smoked: 47 Smoking pack-years: 70.50 Smoking status: Current every day smoker Tobacco type: cigarettes Second hand tobacco smoke exposure: Yes Alcohol intake: unknown Substance use: unknown Substance use type: does not use Additional living arrangements comments: Lives in a senior apartment in [place]. Reportedly independent of ADLs. Ambulates mainly with an electric scooter. Gender identity (if verbalized by the patient): Female Spiritual care concerns: No Exam Narrative: Exam Narrative: GENERAL: Well-appearing, obese, and in no acute distress. HEAD: Normocephalic, atraumatic. EYES: PERRLA and EOMI. ENT: Nares clear, no rhinorrhea or epistaxis. Mucous membranes moist. NECK: Supple. No adenopathy or masses. CHEST: Diminished on auscultation. No respiratory distress. Coarse breath sounds in the lung matta HEART: Regular rate and rhythm. No murmur heard. Normal peripheral pulses. ABDOMEN: Soft, nontender, nondistended EXTREMITIES: Normal range of motion. Chronic lymphedema SKIN: Warm, dry, no rash. NEURO: No focal deficits. Alert and oriented. Cranial nerves II through XII grossly intact PSYCH: Normal mood and affect. Course Course Emergency Course: Patient evaluated the emergency department found to have urinary tract infection is the likely etiology of her symptoms she has widespread resistance given her cultures will be treated with ertapenem hydrated overnight to see if she has improvement no other high risk changes in the evaluation patient has remained hemodynamically stable ABCs intact fluids and antibiotics initiated in the emergency department Vital Signs Vital signs: Vital Signs Temperature 98.7 F 04/22/20 15:40 Pulse Rate 89 04/22/20 15:40 Respiratory Rate 18 04/22/20 15:40 Blood Pressure 143/66 H 04/22/20 15:40 Pulse Oximetry 100 04/22/20 15:40 Temperature 98.7 F 04/22/20 15:40
[2020-04-22 16:09] LABS: Lactic Acid Reflex 0.8 mmol/L (0.7-2.1)
[2020-04-22 16:10] LABS: INR 0.9; Prothrombin Time 12.9 Seconds (11.1-14.7)
[2020-04-22 16:11] LABS: Partial Thromboplastin Time 24.8 SECONDS (22.3-36.8)
[2020-04-22 16:20] LABS: Alanine Aminotransferase 22 U/L (4-35); Albumin Level 3.6 g/dL (3.5-5.1); Alkaline Phosphatase 222 U/L (38-126); Anion Gap 2 mmol/L (8-16); Aspartate Amino Transferase 25 U/L (14-36); Bilirubin,Total 0.4 mg/dL (0.2-1.3); Blood Urea Nitrogen 26 mg/dL (7-17); Calcium 9.1 mg/dL (8.4-10.2); Carbon Dioxide 30 mmol/L (22-30); Chloride 105 mmol/L (98-107); Estimated CRCL calculation 38 ml/min; Estimated Glomerular Filt Rate 32; Glucose 217 mg/dL (65-105); Lipase 26 U/L (23-300); Potassium 4.1 mmol/L (3.4-5.0); Sodium 137 mmol/L (137-145)
[2020-04-22 16:23] LABS: Troponin I 0.029 ng/mL (0.000-0.034)
[2020-04-22 16:34] LABS: Add Urine Microscopic? YES; Appearance Urine Cloudy (Clear); Bacteria Urine Trace /hpf; Bilirubin Urine Negative (Negative); Blood Urine 1+ (Negative); Color Urine Yellow (Yellow); Glucose Urine UA Negative (Negative); Ketones Urine Negative (Negative); Leukocyte Esterase Ur Trace LEU/UL (Negative); Mucus Urine Rare /lpf; Nitrate Urine Negative (Negative); Protein Urine 3+ mg/dL (Negative); RBC Urine 0-2 /hpf (0-2); Specific Grav Ur 1.014 (1.001-1.035); Squamous Epithelial Cell Urine Occasional /hpf (Few); Urobilinogen Urine Negative mg/dL (<2.0); WBC Urine 21-30 /hpf
[2020-04-22 17:15] LABS: CRP 1.2 mg/dL (<1.0)
[2020-04-22] MEDS: LACTATED RINGERS 1,000 ML 999 ML IV CONT (18:04)
[2020-04-22] MEDS: ERTAPENEM 1 GM/NS 50 ML 1 GM/50 ML BAG IVPB (18:05)
[2020-04-22] MEDS: LACTATED RINGERS 1,000 ML 75 ML IV CONT (20:20)
[2020-04-22] MEDS: FAMOTIDINE 20 MG/2 ML VIAL IV PUSH (20:22)
--- NOTE | 2020-04-22 22:52 | ADMGEN ---
This patient, Sherrie Muniz, was admitted to 3 [facility] Surg Room 306-01. Patient/family oriented to hospital policies and general routines including ID bracelet, bed and alarms, visiting hours, pain management, procedures, bathroom and other care routines, personal items, smoking policy, room service/diet, and visiting hours. Information on how to activate the Rapid Response Team has been discussed. Patient/Family are encouraged to report perceived risks to care and to ask questions if they do not understand what they are told or what they should do.
--- NOTE | 2020-04-23 00:37 | PM.IMHP ---
H&P: HPI History of Present Illness Date/Time: 04/23/20 00:37 Chief Complaint: Encephalopathy Narrative: Sherrie Muniz is a 69 year old female who was last discharged from here on 02/27/2020. The patient had been treated for a urinary tract infection E coli ESBL at that time. Looks like the patient had also been in respiratory distress and had hypoxia she was on a BiPAP machine that admission. She had hypoxia and hypercapnia. That did resolve when she was discharged. Patient's COVID testing has been negative. Had been discharged back to to home with residential home health. Sounds like the patient had been wheelchair-bound. Today the home health nurse felt that the patient had altered mental status changes. In this had been occurring over the last 3 days. She has not been ambulating as much as possible it was more confused. Earlier she was complaining of pain and crying so she was given Tylenol now she is resting quietly without difficulty. Patient's creatinine was listed as 1.6 today which is her baseline. Blood sugar was two hundred seventeen. Lactic was normal. Urine was positive for 21-30 wbc's. Trace leukocyte esterase. No acute cardiopulmonary findings. Head CT was not obtained in the emergency room. The patient was started on IV fluids and Invanz. Blood cultures are pending. Patient is being admitted to observation on the date of service of 04/23/2020 Review of Systems Review of Systems: Narrative: The patient would wake up for few minutes a fall back asleep. All systems reviewed & are unremarkable except as noted in HPI and below Constitutional: Constitutional: Reports as per HPI and Reports no additional constitutional complaints Eyes: Eyes: Reports as per HPI and Reports no additional eye complaints ENT: Reports system reviewed and no additional complaints, except as documented and Reports Normal hearing present Cardiovascular: Cardiovascular: Reports no additional cardiovascular complaints Respiratory: Respiratory: Reports no additional respiratory complaints and Reports no additional respiratory complaints Gastrointestinal: Gastrointestinal: Reports as per HPI and Reports no additional gastrointestinal complaints Musculoskeletal: Musculoskeletal: Reports no additional musculoskeletal complaints Integumentary/Breasts: Skin/Breast: Reports system reviewed and no additional complaints, except as docu and Reports as per HPI Neurologic: Reports system reviewed and no additional complaints, except as documented, Reports as per HPI and Reports Normal hearing present Psychiatric: Psychiatric: Reports no additional psychiatric complaints and Reports as per HPI Endocrine: Endocrine: Reports no additional endocrine complaints Hematologic/Lymphatic: Hematologic/Lymphatic: Reports no additional hematologic/lymphatic complaints Allergic/Immunologic: Allergic/Immunologic: Reports no additional allergic/immunologic complaints [facility] Past Medical History Medical History (Updated 04/23/20 @ 01:00 by Cheri Lucero NP) CHF (congestive heart failure), NYHA class I Diastolic congestive heart failure Chronic obstructive pulmonary disease CRF (chronic renal failure) Diabetic retinopathy 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
[2020-04-23 01:46] LABS: Alveolar/Arterial O2 Gradient 20.5 mmHg; Base Excess ABG 0.9 mEq/l (+/-2.0); Device ROOM AIR; Fractional Inspired Oxygen 21 %; HCO3 ABG 26.9 mEq/l (22.0-26.0); Modified Allen's Test Pass; Oxygen Content ABG 15.7 %vol (16.0-22.0); Oxygen Saturation ABG 93.6 % (95.0-100.0); Oxyhemoglobin 92.7 % THb (90.0-100.0); PCO2 ABG 48.6 mmHg (35.0-45.0); PO2 FiO2 Ratio Arterial Blood 3.38 %; Site Drawn LEFT RADIAL; pH ABG 7.361 (7.350-7.450)
[2020-04-23 03:19] LABS: Glucose Point of Care 111 (65-105)
[2020-04-23 05:46] VITALS: BP 152/67; PULSE 79; RESP 20; TEMP 36.5; O2SAT 90
[2020-04-23 08:28] VITALS: O2SAT 95
[2020-04-23] MEDS: FAMOTIDINE 20 MG/2 ML VIAL IV PUSH ×2 (09:04→21:45)
[2020-04-23 09:12] LABS: Glucose Point of Care 106 (65-105)
[2020-04-23 12:15] LABS: Glucose Point of Care 122 (65-105)
[2020-04-23] MEDS: LACTATED RINGERS 1,000 ML 75 ML IV CONT (13:55)
[2020-04-23 14:00] VITALS: BP 162/86; PULSE 77; RESP 20; TEMP 36.6; O2SAT 98
[2020-04-23] MEDS: ERTAPENEM 1 GM/NS 50 ML 1 GM/50 ML BAG IVPB (16:42)
[2020-04-23 16:54] LABS: Glucose Point of Care 149 (65-105)
--- NOTE | 2020-04-23 18:42 | PM.IMPN ---
Progress Note: A&P Assessment and Plan (1) Urinary tract infection: Code(s): N39.0 - Urinary tract infection, site not specified Status: Acute Assessment and Plan: On Rocephin Awaiting Ua cx I&S (2) SIRS (systemic inflammatory response syndrome): Code(s): R65.10 - Systemic inflammatory response syndrome (SIRS) of non-infectious origin without acute organ dysfunction Status: Acute Assessment and Plan: Early goal directed therapy (3) Acute alteration in mental status: Code(s): R41.82 - Altered mental status, unspecified Status: Acute Assessment and Plan: Improved Supportive care Likely secondary to UTI (4) Chronic respiratory failure with hypoxia and hypercapnia: Code(s): J96.11 - Chronic respiratory failure with hypoxia; J96.12 - Chronic respiratory failure with hypercapnia Status: Acute Assessment and Plan: Stable Spot check pulse ox (5) Insulin dependent diabetes mellitus: Status: Acute Assessment and Plan: Accu checks ACHS ISS as needed (6) CHF (congestive heart failure), NYHA class I: Code(s): I50.9 - Heart failure, unspecified Status: Chronic Assessment and Plan: Seems to be compensated Strict I/O's (7) Hypertension: Qualifiers: Hypertension type: essential hypertension Qualified Code(s): I10 - Essential (primary) hypertension Code(s): I10 - Essential (primary) hypertension Status: Chronic Assessment and Plan: Stable Continue to monitor. Subjective Date/time seen: 04/23/20 18:42 Patient states that she feels well Review of Systems Review of Systems: ROS unobtainable: Yes unobtainable due to medical condition (Acute delirium.) Exam Narrative: Exam Narrative: Sitting in chair. Const: General: no acute distress, alert, awake and ill appearing Nutritional Appearance: overweight Orientation/consciousness: oriented to person HENMT: Head: normocephalic Ears: hearing grossly normal bilaterally General nose exam: Normal external nose present Face and sinus: normal facial exam Eyes: General: appearance normal, both eyes and all related structures Pupils: Equal, round and reactive pupils present EOM: EOMs intact bilaterally Neck: Neck: no lymphadenopathy, supple and no JVD Resp: Effort & Inspection: normal respiratory effort Auscultation: clear to auscultation bilaterally Cardio: Jugular venous distension: no JVD Rate: regular rate Rhythm: regular rhythm GI: GI Palp: Yes Soft to palpation and Yes No hepatosplenomegaly present Skin: General skin exam: other (Chronic venousstsis changes B/L LE) Neuro: General: oriented to person and other (delirious) Cranial nerves: Yes CN's II-XII intact bilaterally Speech: normal speech Motor exam (neuro): 5/5 motor strength present throughout Extrem: General: pedal edema bilaterally 2+ Objective Data Vital Signs Vital Signs: Vital Signs - 24 hr 04/22/20 19:30 04/22/20 22:00 04/23/20 05:46 Temperature 97.8 F 98.2 F 97.7 F Pulse Rate 82 69 79 Respiratory Rate 20 20 20 Blood Pressure 152/75 H 150/67 H 152/67 H Pulse Oximetry 95 90 90 04/23/20 08:28 04/23/20 14:00 Temperature 97.8 F Pulse Rate 77 Respiratory Rate 20 Blood Pressure 162/86 H Pulse Oximetry 95 98 Intake/Output Intake/Output: Intake & Output 04/20/20 04/21/20 04/22/20 04/23/20 23:59 23:59 23:59 23:59 Intake Total 1050 1050 Balance 1050 1050 Meds/Results Medications: Active Medications Generic Name Dose Route Start Last Admin Trade Name Freq PRN Reason Stop Dose Admin Dextrose 12.5 gm 04/23/20 00:52 Dextrose 50% 25 Gm/50 Ml Syringe IV PUSH PRN PRN Hypoglycemia Protocol Famotidine 20 mg 04/22/20 21:00 04/23/20 09:04 Famotidine 20 Mg/2 Ml Vial IV PUSH 20 mg Q12HR CAITY Administration Glucagon 1 mg 04/23/20 00:52 Glucagon For Inj 1 Mg Vial IM PRN PRN Hypoglycemia
[2020-04-23 21:49] LABS: Glucose Point of Care 121 (65-105)
[2020-04-23 22:00] VITALS: BP 184/78; PULSE 72; RESP 20; TEMP 36.4; O2SAT 90
[2020-04-24 05:46] VITALS: BP 150/95; PULSE 64; RESP 20; TEMP 36.8; O2SAT 98
[2020-04-24] MEDS: LACTATED RINGERS 1,000 ML 75 ML IV CONT (06:17)
--- NOTE | 2020-04-24 07:44 | P.CDI_ITS ---
CDI Query Clarification Request -SIRS (systemic inflammatory response syndrome of non-infectious origin) has been documented -UTI has been documented Please clarify diagnosis: * SIRS and please clarify non-infectious source * Sepsis (infection with SIRS and organ dysfunction) due to UTI and please in clude supporting criteria * Unable to determine
--- NOTE | 2020-04-24 07:44 | WPDCDIQUERY2 ---
CDI Query Clarification Request -SIRS (systemic inflammatory response syndrome of non-infectious origin) has been documented -UTI has been documented Please clarify diagnosis: SIRS and please clarify non-infectious source Sepsis (infection with SIRS and organ dysfunction) due to UTI and please include supporting criteria Unable to determine
[2020-04-24 08:27] LABS: Basophils Percent Auto 0.5 % (0.2-1.2); Eosinophils Absolute Auto 0.2 K/mm3 (0-0.3); Hematocrit 36.2 % (37.0-47.0); Hemoglobin 11.4 g/dL (12.0-15.0); Immature Granulocyte Absolute 0.01 K/mm3 (0.00-0.031); Immature Granulocyte Percent A 0.3 % (0-0.5); Lymphocytes Absolute Auto 1.32 K/mm3 (0.9-3.2); Lymphocytes Percent Auto 35.5 % (18.3-44.2); Mean Corpuscular HGB Conc 31.5 g/dl (32-36); Mean Corpuscular Hemoglobin 28.3 pg (26-34); Mean Corpuscular Volume 89.8 fl (80-100); Mean Platelet Volume 9.7 fl (7.4-10.4); Monocytes Absolute Auto 0.5 K/mm3 (0.1-0.6); Neutrophils Absolute Auto 1.7 K/mm3 (1.3-6.7); Neutrophils Percent Auto 45.7 % (45.5-73.1); Platelet Count Result 157 k/mm3 (150-375); Red Blood Count 4.03 M/mm3 (4.2-5.4); Red Cell Distribution Width 14.6 % (11.5-14.5); White Blood Count 3.7 K/mm3 (4.5-10.0)
[2020-04-24 08:37] LABS: Alanine Aminotransferase 20 U/L (4-35); Albumin Level 3.2 g/dL (3.5-5.1); Alkaline Phosphatase 192 U/L (38-126); Anion Gap 1 mmol/L (8-16); Aspartate Amino Transferase 28 U/L (14-36); Bilirubin,Total 0.4 mg/dL (0.2-1.3); Blood Urea Nitrogen 23 mg/dL (7-17); Calcium 9.2 mg/dL (8.4-10.2); Carbon Dioxide 30 mmol/L (22-30); Chloride 105 mmol/L (98-107); Estimated CRCL calculation 54 ml/min; Estimated Glomerular Filt Rate 50; Glucose 105 mg/dL (65-105); Lactate Dehydrogenase 542 U/L (313-618); Magnesium 1.6 mg/dL (1.6-2.3); Phosphorus 3.2 mg/dL (2.5-4.5); Potassium 3.8 mmol/L (3.4-5.0); Sodium 136 mmol/L (137-145)
[2020-04-24 08:43] LABS: Glucose Point of Care 112 (65-105)
[2020-04-24] MEDS: FAMOTIDINE 20 MG/2 ML VIAL IV PUSH ×2 (08:48→20:20)
[2020-04-24 12:34] LABS: Glucose Point of Care 136 (65-105)
[2020-04-24 14:00] VITALS: BP 184/74; PULSE 62; RESP 18; TEMP 36.7; O2SAT 100
[2020-04-24] MEDS: ERTAPENEM 1 GM/NS 50 ML 1 GM/50 ML BAG IVPB (17:21)
--- NOTE | 2020-04-24 17:44 | PM.IMPN ---
Progress Note: A&P Assessment and Plan (1) Sepsis: Code(s): A41.9 - Sepsis, unspecified organism Status: Acute Assessment and Plan: On broad spectrum antibiotics Early goal directed therapy (2) UTI (urinary tract infection): Qualifiers: Hematuria presence: without hematuria Urinary tract infection type: site unspecified Qualified Code(s): N39.0 - Urinary tract infection, site not specified Code(s): N39.0 - Urinary tract infection, site not specified Status: Acute Assessment and Plan: Awaiting ua cx I&S Deescalate antibiotics as needed (3) Acute alteration in mental status: Code(s): R41.82 - Altered mental status, unspecified Status: Acute Assessment and Plan: Supportive care Easily arousable Continue to monitor (4) Encephalopathy: Code(s): G93.40 - Encephalopathy, unspecified Status: Acute Assessment and Plan: Likely toxic due to infection. (5) Chronic respiratory failure with hypoxia and hypercapnia: Code(s): J96.11 - Chronic respiratory failure with hypoxia; J96.12 - Chronic respiratory failure with hypercapnia Status: Acute Assessment and Plan: On RA Spot check pulse ox (6) CHF (congestive heart failure), NYHA class I: Code(s): I50.9 - Heart failure, unspecified Status: Chronic Assessment and Plan: Daily I/O's Continue to monitor Subjective Date/time seen: 04/24/20 17:44 States that wants to go to bed. Review of Systems Review of Systems: ROS unobtainable: Yes unobtainable due to medical condition Exam Narrative: Exam Narrative: Sitting in chair Const: General: no acute distress, ill appearing and other (somnolent) Nutritional Appearance: overweight Orientation/consciousness: oriented to person and oriented to place HENMT: Head: normocephalic Ears: hearing grossly normal bilaterally General nose exam: Normal external nose present Face and sinus: normal facial exam Eyes: General: appearance normal, both eyes and all related structures Pupils: Equal, round and reactive pupils present EOM: EOMs intact bilaterally Neck: Neck: no lymphadenopathy, supple and no JVD Resp: Effort & Inspection: able to speak in complete sentences Auscultation: clear to auscultation bilaterally Cardio: Jugular venous distension: no JVD Rate: regular rate Rhythm: regular rhythm GI: GI Palp: Yes Soft to palpation and Yes No hepatosplenomegaly present Skin: General skin exam: other (B/L LE chronic skin changes and venous stasis) Neuro: General: oriented to person, CN's II-XI intact bilaterally and other (somnolent) Cranial nerves: Yes CN's II-XII intact bilaterally and Yes Equal, round and reactive pupils present Objective Data Vital Signs Vital Signs: Vital Signs - 24 hr 04/23/20 22:00 04/24/20 05:46 04/24/20 14:00 Temperature 97.5 F L 98.3 F 98.1 F Pulse Rate 72 64 62 Respiratory Rate 20 20 18 Blood Pressure 184/78 H 150/95 H 184/74 H Pulse Oximetry 90 98 100 Intake/Output Intake/Output: Intake & Output 04/21/20 04/22/20 04/23/20 04/24/20 23:59 23:59 23:59 23:59 Intake Total 1050 1350 1490 Balance 1050 1350 1490 Meds/Results Medications: Active Medications Generic Name Dose Route Start Last Admin Trade Name Freq PRN Reason Stop Dose Admin Dextrose 12.5 gm 04/23/20 00:52 Dextrose 50% 25 Gm/50 Ml Syringe IV PUSH PRN PRN Hypoglycemia Protocol Famotidine 20 mg 04/22/20 21:00 04/24/20 08:48 Famotidine 20 Mg/2 Ml Vial IV PUSH 20 mg Q12HR CAITY Administration Glucagon 1 mg 04/23/20 00:52 Glucagon For Inj 1 Mg Vial IM PRN PRN Hypoglycemia Protocol Glucose 15 gm 04/23/20 00:52 Glucose Oral Gel 15 Gm Of Glucse In 37.5 Gm Tube PO PRN PRN Hypoglycemia Protocol Ertapenem 1 gm in 50 mls @ 100 mls/hr 04/23/20 17:00 04/24/20 17:21 Invanz 1 Gm/Ns 50 Ml IVPB 100 mls/hr Q24H CAITY Adminis
[2020-04-24 17:46] LABS: Glucose Point of Care 129 (65-105)
[2020-04-24 20:41] LABS: Glucose Point of Care 137 (65-105)
[2020-04-24 21:54] VITALS: BP 154/93; PULSE 68; RESP 20; TEMP 36.7; O2SAT 100
[2020-04-25 05:43] VITALS: BP 151/60; PULSE 63; RESP 20; TEMP 36.6; O2SAT 97
[2020-04-25 08:28] LABS: Glucose Point of Care 93 (65-105)
[2020-04-25] MEDS: FAMOTIDINE 20 MG/2 ML VIAL IV PUSH ×2 (08:30→21:15)
[2020-04-25 09:55] LABS: Anion Gap 6 mmol/L (8-16); Blood Urea Nitrogen 23 mg/dL (7-17); Calcium 9.1 mg/dL (8.4-10.2); Carbon Dioxide 30 mmol/L (22-30); Chloride 102 mmol/L (98-107); Estimated CRCL calculation 49 ml/min; Estimated Glomerular Filt Rate 45; Glucose 113 mg/dL (65-105); Potassium 3.6 mmol/L (3.4-5.0); Sodium 138 mmol/L (137-145)
[2020-04-25 10:12] LABS: Basophils Percent Auto 0.8 % (0.2-1.2); Eosinophils Absolute Auto 0.1 K/mm3 (0-0.3); Eosinophils Percent Auto 2.3 % (0-4.4); Hematocrit 34.9 % (37.0-47.0); Hemoglobin 10.9 g/dL (12.0-15.0); Immature Granulocyte Absolute 0.01 K/mm3 (0.00-0.031); Immature Granulocyte Percent A 0.3 % (0-0.5); Lymphocytes Absolute Auto 1.39 K/mm3 (0.9-3.2); Lymphocytes Percent Auto 34.8 % (18.3-44.2); Mean Corpuscular HGB Conc 31.2 g/dl (32-36); Mean Corpuscular Hemoglobin 27.5 pg (26-34); Mean Corpuscular Volume 87.9 fl (80-100); Mean Platelet Volume 9.6 fl (7.4-10.4); Monocytes Absolute Auto 0.4 K/mm3 (0.1-0.6); Monocytes Percent Auto 9.8 % (2.6-8.5); Neutrophils Absolute Auto 2.1 K/mm3 (1.3-6.7); Platelet Count Result 170 k/mm3 (150-375); Red Blood Count 3.97 M/mm3 (4.2-5.4); Red Cell Distribution Width 14.6 % (11.5-14.5)
[2020-04-25 11:50] LABS: Glucose Point of Care 113 (65-105)
[2020-04-25 14:00] VITALS: BP 173/83; PULSE 68; RESP 20; TEMP 36.5; O2SAT 99
--- NOTE | 2020-04-25 15:55 | PM.IMPN ---
Progress Note: A&P Assessment and Plan (1) Urinary tract infection: Code(s): N39.0 - Urinary tract infection, site not specified Status: Acute Assessment and Plan: Patient has been on Rocephin however Ua cx final result shows gramajo resistant E.coli Sensitive to Gentamycin ID consult (2) Acute alteration in mental status: Code(s): R41.82 - Altered mental status, unspecified Status: Acute Assessment and Plan: Improved CT reviewed (3) SIRS (systemic inflammatory response syndrome): Code(s): R65.10 - Systemic inflammatory response syndrome (SIRS) of non-infectious origin without acute organ dysfunction Status: Acute Assessment and Plan: Resolved (4) Encephalopathy: Code(s): G93.40 - Encephalopathy, unspecified Status: Acute Assessment and Plan: Improved. (5) CHF (congestive heart failure), NYHA class I: Code(s): I50.9 - Heart failure, unspecified Status: Chronic Assessment and Plan: Stable Continue to monitor I/O's (6) Person under investigation for COVID-19: Code(s): Z20.828 - Contact with and (suspected) exposure to other viral communicable diseases Status: Acute Assessment and Plan: Ruled out. (7) Chronic respiratory failure with hypoxia and hypercapnia: Code(s): J96.11 - Chronic respiratory failure with hypoxia; J96.12 - Chronic respiratory failure with hypercapnia Status: Acute Assessment and Plan: On RA currently Will obtain ABG in am Subjective Date/time seen: 04/25/20 15:55 Patient states that she wants to get up, has no complains. Review of Systems Review of Systems: ROS unobtainable: Yes unobtainable due to medical condition Exam Narrative: Exam Narrative: Lying in bed. Const: General: comfortable, no acute distress and ill appearing Nutritional Appearance: overweight Orientation/consciousness: oriented to person and lethargic HENMT: Head: normal to inspection and normocephalic Ears: hearing grossly normal bilaterally General nose exam: Normal external nose present Face and sinus: normal facial exam Eyes: General: appearance normal, both eyes and all related structures Pupils: Equal, round and reactive pupils present EOM: EOMs intact bilaterally Neck: Neck: no lymphadenopathy, supple and no JVD Lymphatic: no lymphadenopathy noted Resp: Effort & Inspection: normal respiratory effort and able to speak in complete sentences Auscultation: clear to auscultation bilaterally Cardio: Jugular venous distension: no JVD Rate: regular rate Rhythm: regular rhythm GI: GI Palp: Yes Soft to palpation and Yes No hepatosplenomegaly present Skin: General skin exam: other (B/L LE chronic venous stasis skin chnages.) Neuro: General: oriented to person and CN's II-XI intact bilaterally Cranial nerves: Yes CN's II-XII intact bilaterally Cognition (Neuro): normal cognition Speech: normal speech Motor exam (neuro): 5/5 motor strength present throughout Extrem: General: pedal edema Objective Data Vital Signs Vital Signs: Vital Signs - 24 hr 04/24/20 21:54 04/25/20 05:43 Temperature 98.0 F 97.8 F Pulse Rate 68 63 Respiratory Rate 20 20 Blood Pressure 154/93 H 151/60 H Pulse Oximetry 100 97 Intake/Output Intake/Output: Intake & Output 04/22/20 04/23/20 04/24/20 04/25/20 23:59 23:59 23:59 23:59 Intake Total 1050 1350 2790 Balance 1050 1350 2790 Meds/Results Medications: Active Medications Generic Name Dose Route Start Last Admin Trade Name Freq PRN Reason Stop Dose Admin Dextrose 12.5 gm 04/23/20 00:52 Dextrose 50% 25 Gm/50 Ml Syringe IV PUSH PRN PRN Hypoglycemia Protocol Famotidine 20 mg 04/22/20 21:00 04/25/20 08:30 Famotidine 20 Mg/2 Ml Vial IV PUSH 20 mg Q12HR CAITY Administration Glucagon 1 mg 04/23/20 00:52 Glucagon For Inj 1 Mg Vial IM PRN PRN Hypoglycemia Protocol Glucose 15 gm /
[2020-04-25] MEDS: ACETAMINOPHEN 500 MG TABLET 1000 MG PO (16:12)
[2020-04-25] MEDS: LACTATED RINGERS 1,000 ML 75 ML IV CONT (16:15)
[2020-04-25] MEDS: ERTAPENEM 1 GM/NS 50 ML 1 GM/50 ML BAG IVPB (16:16)
[2020-04-25 17:29] LABS: Glucose Point of Care 126 (65-105)
[2020-04-25 20:00] VITALS: PULSE 71; RESP 22; O2SAT 98
[2020-04-25 21:26] VITALS: BP 158/71; PULSE 71; RESP 22; TEMP 36.5; O2SAT 98
[2020-04-25 22:34] LABS: Glucose Point of Care 118 (65-105)
[2020-04-26] MEDS: LACTATED RINGERS 1,000 ML 75 ML IV CONT ×2 (04:09→19:01)
[2020-04-26 06:00] VITALS: BP 182/73; PULSE 83; RESP 20; TEMP 36.8; O2SAT 98
[2020-04-26 07:40] LABS: Glucose Point of Care 110 (65-105)
[2020-04-26 08:00] VITALS: PULSE 83; RESP 20; O2SAT 98
[2020-04-26] MEDS: FAMOTIDINE 20 MG/2 ML VIAL IV PUSH ×2 (08:15→22:20)
[2020-04-26 09:45] VITALS: BP 184/80
[2020-04-26] MEDS: lisinopriL 20 MG TABLET 40 MG PO (11:05)
[2020-04-26 13:03] LABS: Glucose Point of Care 124 (65-105)
[2020-04-26 14:00] VITALS: BP 161/66; PULSE 79; RESP 20; TEMP 36.5; O2SAT 96
--- NOTE | 2020-04-26 16:26 | PM.IMPN ---
Progress Note: A&P Assessment and Plan (1) Urinary tract infection: Code(s): N39.0 - Urinary tract infection, site not specified Status: Acute (2) Acute alteration in mental status: Code(s): R41.82 - Altered mental status, unspecified Status: Acute Assessment and Plan: Urine cx shows resistent E.coli Albeit this patient shows improvement clinically ID consult (3) SIRS (systemic inflammatory response syndrome): Code(s): R65.10 - Systemic inflammatory response syndrome (SIRS) of non-infectious origin without acute organ dysfunction Status: Acute Assessment and Plan: Resolved. (4) Chronic respiratory failure with hypoxia and hypercapnia: Code(s): J96.11 - Chronic respiratory failure with hypoxia; J96.12 - Chronic respiratory failure with hypercapnia Status: Acute Assessment and Plan: Stable. (5) Person under investigation for COVID-19: Code(s): Z20.828 - Contact with and (suspected) exposure to other viral communicable diseases Status: Acute Assessment and Plan: Ruled out. (6) CHF (congestive heart failure), NYHA class I: Code(s): I50.9 - Heart failure, unspecified Status: Chronic Assessment and Plan: Stable. (7) Tobacco abuse: Code(s): Z72.0 - Tobacco use Status: Acute Assessment and Plan: Nicotine patch as needed (8) Chronic obstructive pulmonary disease: Qualifiers: COPD type: unspecified COPD Qualified Code(s): J44.9 - Chronic obstructive pulmonary disease, unspecified Code(s): J44.9 - Chronic obstructive pulmonary disease, unspecified Status: Acute Assessment and Plan: Stable (9) Hypertension: Qualifiers: Hypertension type: essential hypertension Qualified Code(s): I10 - Essential (primary) hypertension Code(s): I10 - Essential (primary) hypertension Status: Chronic Assessment and Plan: Continue home meds Continue to monitor Subjective Date/time seen: 04/26/20 16:26 I'm fine. Review of Systems Review of Systems: Narrative: Patient states no new complains. Exam Narrative: Exam Narrative: Lying in bed. Const: General: comfortable, alert, awake and Physically active Nutritional Appearance: overweight Orientation/consciousness: patient oriented x3 HENMT: Head: normocephalic Ears: hearing grossly normal bilaterally General nose exam: Normal external nose present Face and sinus: normal facial exam Eyes: General: appearance normal, both eyes and all related structures Pupils: Equal, round and reactive pupils present EOM: EOMs intact bilaterally Neck: Neck: no lymphadenopathy, supple and no JVD Resp: Effort & Inspection: normal respiratory effort Auscultation: clear to auscultation bilaterally Cardio: Jugular venous distension: no JVD Rate: regular rate Rhythm: regular rhythm GI: GI Palp: Yes Soft to palpation and Yes No hepatosplenomegaly present Skin: Wounds: no wounds Neuro: General: patient oriented x3 and CN's II-XI intact bilaterally Cranial nerves: Yes CN's II-XII intact bilaterally and Yes Bilaterally intact EOM present Extrem: General: pedal edema Objective Data Vital Signs Vital Signs: Vital Signs - 24 hr 04/25/20 20:00 04/25/20 21:26 04/26/20 06:00 Temperature 97.7 F 98.3 F Pulse Rate 71 71 83 Respiratory Rate 22 H 22 H 20 Blood Pressure 158/71 H 182/73 H Pulse Oximetry 98 98 98 04/26/20 08:00 04/26/20 09:45 04/26/20 14:00 Temperature 97.7 F Pulse Rate 83 79 Respiratory Rate 20 20 Blood Pressure 184/80 H 161/66 H Pulse Oximetry 98 96 Intake/Output Intake/Output: Intake & Output 04/23/20 04/24/20 04/25/20 04/26/20 23:59 23:59 23:59 23:59 Intake Total 1350 2790 50 1300 Balance 1350 2790 50 1300 Meds/Results Medications: Active Medications Generic Name Dose Route Start Last Admin Trade Name Freq PRN Reason Stop Dose Admin Acetaminophen 1,
[2020-04-26] MEDS: ERTAPENEM 1 GM/NS 50 ML 1 GM/50 ML BAG IVPB (17:02)
[2020-04-26 19:09] LABS: Glucose Point of Care 107 (65-105)
--- NOTE | 2020-04-26 19:24 | WPDCN ---
Assessment and Plan Additional Plan 1. Urinary tract infection versus asymptomatic bacteriuria. With a normal white count. Vital signs are stable. No fever. Patient clinically has improved despite being on ertapenem and day E coli is resistant to ertapenem with intermediate sensitivity to imipenem. I do not suspect this patient has urinary tract infection. Will hold off antibiotic therapy and observe closely. 2. Change in mental status will need further workup. Her change in mental status I do not suspect is from her asymptomatic bacteriuria. 3. History of hypertension with stable blood pressure. Continue medication. 4. Date of service 04/26/2020. CC Dr. Chapo Manzo [facility] Data of Consult Date/Time: 04/26/20 19:24 Requesting Physician: Chapo Manzo MD Primary Care Provider: Cecelia Curtis, Consult Narrative Narrative: Sherrie Muniz is a 69 year old female with a resident of long term presented today emergency room due to change in mental status. Patient was in the hospital in February of 2020 and treated for complicated urinary tract infection for an extended beta lactamase resistant E coli. This time patient presented from the long term with change in mental status. There is no history of fever. On admission she had a normal white count with no fever and stable blood pressure. Patient is much more awake. Patient did have pyuria on admission and a urine culture showed an E coli with carbapenem resistance. She has had some pain on for 3 days. Clinically she is stable. Mental status as per nurses stated that has improved somewhat but have not gotten any worse. Blood cultures have been so far negative. 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 Diastolic congestive heart failure History of colon polyps History of peptic ulcer disease Hyperlipidemia Hyperlipidemia Hypertension Insulin dependent diabetes mellitus Morbid obesity Neuropathy Overactive bladder Tobacco abuse Surgical History Surgical History History of cholecystectomy Family History Family History Mother Emphysema/COPD Father Carcinoma of colon Sibling Diabetes mellitus Social History Social History (Updated 04/23/20 @ 01:04 by Cheri Lucero NP) Social History: The patient is reported as single and that she is retired Surrogate decision maker: Yfn Cheung, nephew. Code status: Full code. Smoking packs per day: 1.5 Smoking cigarettes per day: 30.0 Years smoked: 47 Smoking pack-years: 70.50 Smoking status: Current every day smoker Tobacco type: cigarettes Second hand tobacco smoke exposure: Yes Additional smoking assessment comments: does not respond to how many cigarettes but stated she still smokes Alcohol intake: former Substance use: never Substance use type: does not use Additional living arrangements comments: Lives in a senior apartment in [place]. Reportedly independent of ADLs. Ambulates mainly with an electric scooter. Gender identity (if verbalized by the patient): Female Spiritual care concerns: No Meds Home Medications and Allergies Home Medications Medication Instructions Recorded Confirmed Type Adults Multivitamin 1 tablet PO DAILY 30 Days #30 02/27/20 04/23/20 Rx tablet Tresiba FlexTouch U-100 14 unit SUBCUT DAILY 30 Days #3 ml 02/27/20 04/23/20 Rx acetaminophen [Tylenol] 325 mg PO Q4-6H PRN 30 Days #30 02/27/20 02
[2020-04-26 20:00] VITALS: PULSE 72; RESP 18; O2SAT 96
[2020-04-26 21:20] VITALS: BP 167/54; PULSE 72; RESP 18; TEMP 36.5; O2SAT 96
[2020-04-26 23:37] LABS: Glucose Point of Care 97 (65-105)
[2020-04-27 06:00] VITALS: BP 158/52; PULSE 72; RESP 18; TEMP 36.7; O2SAT 95
[2020-04-27 06:11] LABS: Basophils Percent Auto 0.4 % (0.2-1.2); Eosinophils Absolute Auto 0.1 K/mm3 (0-0.3); Eosinophils Percent Auto 2.8 % (0-4.4); Hematocrit 33.9 % (37.0-47.0); Hemoglobin 10.7 g/dL (12.0-15.0); Immature Granulocyte Absolute 0.02 K/mm3 (0.00-0.031); Immature Granulocyte Percent A 0.4 % (0-0.5); Lymphocytes Absolute Auto 1.85 K/mm3 (0.9-3.2); Lymphocytes Percent Auto 39.3 % (18.3-44.2); Mean Corpuscular HGB Conc 31.6 g/dl (32-36); Mean Corpuscular Hemoglobin 27.4 pg (26-34); Mean Corpuscular Volume 86.9 fl (80-100); Mean Platelet Volume 9.1 fl (7.4-10.4); Monocytes Absolute Auto 0.4 K/mm3 (0.1-0.6); Monocytes Percent Auto 8.7 % (2.6-8.5); Neutrophils Absolute Auto 2.3 K/mm3 (1.3-6.7); Neutrophils Percent Auto 48.4 % (45.5-73.1); Platelet Count Result 161 k/mm3 (150-375); Red Cell Distribution Width 14.4 % (11.5-14.5); White Blood Count 4.7 K/mm3 (4.5-10.0)
[2020-04-27 06:25] LABS: Anion Gap 5 mmol/L (8-16); Blood Urea Nitrogen 19 mg/dL (7-17); Calcium 8.7 mg/dL (8.4-10.2); Carbon Dioxide 28 mmol/L (22-30); Chloride 105 mmol/L (98-107); Estimated CRCL calculation 46 ml/min; Estimated Glomerular Filt Rate 41; Glucose 91 mg/dL (65-105); Potassium 3.6 mmol/L (3.4-5.0); Sodium 138 mmol/L (137-145)
--- NOTE | 2020-04-27 07:59 | PCOTNOTE ---
Attempted to see patient for OT, unable to rouse patient. Will attempt again later this date.
[2020-04-27 08:26] LABS: Glucose Point of Care 134 (65-105)
[2020-04-27] MEDS: LACTATED RINGERS 1,000 ML 75 ML IV CONT (11:01)
[2020-04-27] MEDS: FAMOTIDINE 20 MG/2 ML VIAL IV PUSH ×2 (11:02→20:35)
[2020-04-27] MEDS: lisinopriL 20 MG TABLET 40 MG PO (11:02)
[2020-04-27 11:57] LABS: Glucose Point of Care 129 (65-105)
--- NOTE | 2020-04-27 13:05 | WPDINFPN2 ---
Progress Note: A&P Assessment and Plan (1) Asymptomatic bacteriuria: Code(s): R82.71 - Bacteriuria Status: Acute Assessment and Plan: ASB and chronic OAB REC No further antibiotics. Call if other Qs Subjective Date/time seen: 04/27/20 13:05 Interval history: no compplaints Exam Narrative: Exam Narrative: afebrile Const: General: no acute distress Other: obese GI: Inspection: non-distended GI Palp: Yes Soft to palpation, No Tenderness to palpation present (GI) and No Guarding due to palpation present (GI) Percussion: Yes normal to percussion Urinary Catheter: Urinary Catheter: other (no catheter in place) Objective Data Vital Signs Vital Signs: Vital Signs - 24 hr 04/26/20 14:00 04/26/20 20:00 04/26/20 21:20 Temperature 36.5 C 36.5 C Pulse Rate 79 72 72 Respiratory Rate 20 18 18 Blood Pressure 161/66 H 167/54 H Pulse Oximetry 96 96 96 04/27/20 06:00 Temperature 36.7 C Pulse Rate 72 Respiratory Rate 18 Blood Pressure 158/52 H Pulse Oximetry 95 Intake/Output Intake/Output: Intake & Output 04/24/20 04/25/20 04/26/20 04/27/20 23:59 23:59 23:59 23:59 Intake Total 2790 50 2300 1260 Balance 2790 50 2300 1260 Meds/Results Medications: Active Medications Generic Name Dose Route Start Last Admin Trade Name Freq PRN Reason Stop Dose Admin Acetaminophen 1,000 mg 04/25/20 16:03 04/25/20 16:12 Acetaminophen 500 Mg Tablet PO 1,000 mg Q6H PRN Administration Mild Pain (1-3) or Fever Dextrose 12.5 gm 04/23/20 00:52 Dextrose 50% 25 Gm/50 Ml Syringe IV PUSH PRN PRN Hypoglycemia Protocol Famotidine 20 mg 04/22/20 21:00 04/27/20 11:02 Famotidine 20 Mg/2 Ml Vial IV PUSH 20 mg Q12HR CAITY Administration Glucagon 1 mg 04/23/20 00:52 Glucagon For Inj 1 Mg Vial IM PRN PRN Hypoglycemia Protocol Glucose 15 gm 04/23/20 00:52 Glucose Oral Gel 15 Gm Of Glucse In 37.5 Gm Tube PO PRN PRN Hypoglycemia Protocol Lactated Ringer's 1,000 mls @ 75 mls/hr 04/22/20 17:40 04/27/20 11:01 Lr - Lactated Ringers Iv IV CONT 75 mls/hr .[id number] CAITY Administration Dextrose 1,000 mls @ 100 mls/hr 04/23/20 00:52 Dextrose 5% 1,000 Ml IVPB PRN PRN Hypoglycemia Protocol Insulin Aspart 4 - 8 units 04/23/20 08:00 04/27/20 12:20 Insulin Aspart (*Bkc) 100 Units/Ml SUB-Q Not Given TIDWM CAITY Protocol Lisinopril 40 mg 04/26/20 09:00 04/27/20 11:02 Lisinopril 20 Mg Tablet PO 40 mg QAM CAITY Administration Ondansetron HCl 4 mg 04/22/20 17:36 Ondansetron Inj 4 Mg/2 Ml Vial IV PUSH Q4H PRN Nausea Radiology Results: ITS Impressions Chest X-Ray 04/22/20 16:07 IMPRESSION: No acute cardiopulmonary findings. Head CT 04/23/20 07:41 IMPRESSION: 1. 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 2. Age related findings. Venous Doppler Study 04/23/20 11:45 IMPRESSION: 1. Patent bilateral lower extremity veins. No evidence of deep venous thrombosis. Labs Labs: Laboratory Results - last 24 hr 04/26/20 04/26/20 04/27/20 17:12 23:29 05:35 WBC 4.7 RBC 3.90 L Hgb 10.7 L Hct 33.9 L MCV 86.9 MCH 27.4 MCHC 31.6 L RDW 14.4 Plt Count 161 MPV 9.1 Immature Gran % (Auto) 0.4 Neut % (Auto) 48.4 Lymph % (Auto) 39.3 [place] % (Auto) 8.7 H Eos % (Auto) 2.8 Baso % (Auto) 0.4 Lymph # (Auto) 1.85 [place] # (Auto) 0.4 Eos # (Auto) 0.1 Baso # (Auto) 0.0 Abs Immat Gran (auto) 0.02 Absolute Neuts (auto) 2.3 Absolute Nucleated RBC 0.0 Nucleated RBC % 0.0 Sodium Potassium Chloride Carbon Dioxide Anion Gap BUN Creatinine Estim Creat Clear Calc Estimated GFR Glucose POC Capillary Glucose 107 97 Calcium 02/22/21 02/22/21 02/22/21 05:35 07:46 11:38 WBC RBC Hgb Hct
[2020-04-27 14:00] VITALS: BP 172/83; PULSE 65; RESP 18; TEMP 36.3; O2SAT 95
[2020-04-27 17:12] LABS: Glucose Point of Care 102 (65-105)
--- NOTE | 2020-04-27 18:17 | PM.IMPN ---
Progress Note: A&P Assessment and Plan (1) Encephalopathy: Code(s): G93.40 - Encephalopathy, unspecified Status: Acute Assessment and Plan: Improved Unclear etiology Supportive care (2) Acute alteration in mental status: Code(s): R41.82 - Altered mental status, unspecified Status: Acute Assessment and Plan: Improved Unclear etiology Apnea link tonight (3) Sepsis: Code(s): A41.9 - Sepsis, unspecified organism Status: Acute Assessment and Plan: Ruled out Appreciate ID note (4) Urinary tract infection: Code(s): N39.0 - Urinary tract infection, site not specified Status: Acute Assessment and Plan: Asymptomatic bacteriuria (5) Hypertension: Qualifiers: Hypertension type: essential hypertension Qualified Code(s): I10 - Essential (primary) hypertension Code(s): I10 - Essential (primary) hypertension Status: Chronic Assessment and Plan: Stable Continue to monitor (6) Person under investigation for COVID-19: Code(s): Z20.828 - Contact with and (suspected) exposure to other viral communicable diseases Status: Acute Assessment and Plan: Ruled out. (7) Chronic respiratory failure with hypoxia and hypercapnia: Code(s): J96.11 - Chronic respiratory failure with hypoxia; J96.12 - Chronic respiratory failure with hypercapnia Status: Acute Assessment and Plan: On RA (8) CHF (congestive heart failure), NYHA class I: Code(s): I50.9 - Heart failure, unspecified Status: Chronic Assessment and Plan: Stable I/O's Continue to monitor Subjective Date/time seen: 04/27/20 18:17 States that she feels well. Review of Systems Review of Systems: ROS unobtainable: Yes unobtainable due to medical condition Exam Narrative: Exam Narrative: Lying in bed. Const: General: comfortable, no acute distress and tired appearing Nutritional Appearance: overweight Orientation/consciousness: patient oriented x3 and Other orientation findings HENMT: Head: normocephalic Ears: hearing grossly normal bilaterally General nose exam: Normal external nose present Face and sinus: normal facial exam Eyes: General: appearance normal, both eyes and all related structures Pupils: Equal, round and reactive pupils present EOM: EOMs intact bilaterally Neck: Neck: no lymphadenopathy, supple and no JVD Resp: Effort & Inspection: normal respiratory effort and able to speak in complete sentences Auscultation: clear to auscultation bilaterally Cardio: Jugular venous distension: no JVD Rate: regular rate Rhythm: regular rhythm GI: Inspection: normal to inspection GI Palp: Yes Soft to palpation and Yes No hepatosplenomegaly present Skin: Rashes: no rashes Neuro: General: patient oriented x3 and CN's II-XI intact bilaterally Cranial nerves: Yes CN's II-XII intact bilaterally and Yes Equal, round and reactive pupils present Cognition (Neuro): abnormal cognition Speech: normal speech Gait exam (Neuro): Normal gait present Motor exam (neuro): 5/5 motor strength present throughout Extrem: General: pedal edema bilaterally Objective Data Vital Signs Vital Signs: Vital Signs - 24 hr 04/26/20 20:00 04/26/20 21:20 04/27/20 06:00 Temperature 97.7 F 98.1 F Pulse Rate 72 72 72 Respiratory Rate 18 18 18 Blood Pressure 167/54 H 158/52 H Pulse Oximetry 96 96 95 04/27/20 14:00 Temperature 97.4 F L Pulse Rate 65 Respiratory Rate 18 Blood Pressure 172/83 H Pulse Oximetry 95 Intake/Output Intake/Output: Intake & Output 04/24/20 04/25/20 04/26/20 04/27/20 23:59 23:59 23:59 23:59 Intake Total 2790 50 2300 1260 Balance 2790 50 2300 1260 Meds/Results Medications: Active Medications Generic Name Dose Route Start Last Admin Trade Name Freq PRN Reason Stop Dose Admin Acetaminophen 1,000 mg 04/25/20 16:03 04/25/20 16:12 Acetaminophen 500 Mg Tablet PO 1,000 mg
[2020-04-27 20:00] VITALS: PULSE 78; RESP 18; O2SAT 94
[2020-04-27 21:22] LABS: Glucose Point of Care 103 (65-105)
[2020-04-27 22:00] VITALS: BP 220/90; PULSE 62; RESP 20; TEMP 36.8; O2SAT 95
[2020-04-27 22:06] VITALS: PULSE 66; O2SAT 91
[2020-04-27] MEDS: hydrALAZINE HCL 20 MG/ML VIAL 10 MG IV PUSH (23:05)
[2020-04-28 00:09] VITALS: BP 220/102; PULSE 69; O2SAT 98
[2020-04-28] MEDS: cloNIDine HCL 0.1 MG TABLET PO (00:22)
[2020-04-28 01:34] VITALS: BP 171/72; PULSE 70; O2SAT 90
[2020-04-28] MEDS: LACTATED RINGERS 1,000 ML 75 ML IV CONT (05:00)
[2020-04-28 05:40] VITALS: BP 164/75; PULSE 72; RESP 20; TEMP 36.2; O2SAT 92
[2020-04-28] MEDS: FAMOTIDINE 20 MG/2 ML VIAL IV PUSH ×2 (08:25→22:12)
[2020-04-28] MEDS: lisinopriL 20 MG TABLET 40 MG PO (08:25)
[2020-04-28 08:44] LABS: Glucose Point of Care 107 (65-105)
--- NOTE | 2020-04-28 11:52 | PM.IMPN ---
Progress Note: A&P Assessment and Plan (1) Encephalopathy: Code(s): G93.40 - Encephalopathy, unspecified Status: Acute Assessment and Plan: Unclear etiology Supportive care (2) Acute alteration in mental status: Code(s): R41.82 - Altered mental status, unspecified Status: Acute Assessment and Plan: Unclear etiology (3) Sepsis: Code(s): A41.9 - Sepsis, unspecified organism Status: Resolved Assessment and Plan: Id rounding see recommendations (4) Urinary tract infection: Code(s): N39.0 - Urinary tract infection, site not specified Status: Acute Assessment and Plan: Asymptomatic bacteriuria (5) Hypertension: Qualifiers: Hypertension type: essential hypertension Qualified Code(s): I10 - Essential (primary) hypertension Code(s): I10 - Essential (primary) hypertension Status: Chronic Assessment and Plan: Stable Continue to monitor (6) Person under investigation for COVID-19: Code(s): Z20.828 - Contact with and (suspected) exposure to other viral communicable diseases Status: Ruled-out Assessment and Plan: Ruled out. (7) Chronic respiratory failure with hypoxia and hypercapnia: Code(s): J96.11 - Chronic respiratory failure with hypoxia; J96.12 - Chronic respiratory failure with hypercapnia Status: Resolved Assessment and Plan: On RA (8) CHF (congestive heart failure), NYHA class I: Code(s): I50.9 - Heart failure, unspecified Status: Chronic Assessment and Plan: Stable Subjective Date/time seen: 04/28/20 11:52 Interval history: Admitted with encephalopathy and sepsis, pt is lethargic eyes are closed not cooperating with exam. SEen by ID and myself. continue recommendations. Review of Systems Review of Systems: All systems reviewed & are unremarkable except as noted in HPI and below Exam Narrative: Exam Narrative: Lying in bed. eyes closed not wanting to be examined yelling Const: General: ill appearing, lethargic, tired appearing and other (somnolent) Objective Data Vital Signs Vital Signs: Vital Signs - 24 hr 04/27/20 14:00 04/27/20 20:00 04/27/20 22:00 Temperature 36.3 C L 36.8 C Pulse Rate 65 78 62 Respiratory Rate 18 18 20 Blood Pressure 172/83 H 220/90 H Pulse Oximetry 95 94 95 04/27/20 22:06 04/28/20 00:09 04/28/20 01:34 Temperature Pulse Rate 66 69 70 Respiratory Rate Blood Pressure 220/102 H 171/72 H Pulse Oximetry 91 98 90 04/28/20 05:40 Temperature 36.2 C L Pulse Rate 72 Respiratory Rate 20 Blood Pressure 164/75 H Pulse Oximetry 92 Intake/Output Intake/Output: Intake & Output 04/25/20 04/26/20 04/27/20 04/28/20 23:59 23:59 23:59 23:59 Intake Total 50 2300 1260 1400 Balance 50 2300 1260 1400 Meds/Results Medications: Active Medications Generic Name Dose Route Start Last Admin Trade Name Freq PRN Reason Stop Dose Admin Acetaminophen 1,000 mg 04/25/20 16:03 04/25/20 16:12 Acetaminophen 500 Mg Tablet PO 1,000 mg Q6H PRN Administration Mild Pain (1-3) or Fever Dextrose 12.5 gm 04/23/20 00:52 Dextrose 50% 25 Gm/50 Ml Syringe IV PUSH PRN PRN Hypoglycemia Protocol Famotidine 20 mg 04/22/20 21:00 04/28/20 08:25 Famotidine 20 Mg/2 Ml Vial IV PUSH 20 mg Q12HR CAITY Administration Glucagon 1 mg 04/23/20 00:52 Glucagon For Inj 1 Mg Vial IM PRN PRN Hypoglycemia Protocol Glucose 15 gm 04/23/20 00:52 Glucose Oral Gel 15 Gm Of Glucse In 37.5 Gm Tube PO PRN PRN Hypoglycemia Protocol Hydralazine HCl 10 mg 04/28/20 00:26 Hydralazine Hcl 20 Mg/Ml Vial IV PUSH Q4HR PRN SBP > 165 or DBP > 105 Dextrose 1,000 mls @ 100 mls/hr 04/23/20 00:52 Dextrose 5% 1,000 Ml IVPB PRN PRN Hypoglycemia Protocol Insulin Aspart 4 - 8 units 04/23/20 08:00 04/28/20 08:40 Insul
[2020-04-28 11:55] VITALS: BMI 10.0
[2020-04-28 12:31] LABS: Glucose Point of Care 118 (65-105)
[2020-04-28 13:51] VITALS: BP 150/67; PULSE 59; RESP 20; TEMP 36.1; O2SAT 96
--- NOTE | 2020-04-28 14:20 | WPDNEURCNPN ---
Assessment and Plan Assessment and plan (1) CHF (congestive heart failure), NYHA class I: Code(s): I50.9 - Heart failure, unspecified Status: Chronic (2) Encephalopathy: Code(s): G93.40 - Encephalopathy, unspecified Status: Acute Additional Plan metabolic encephalopathy gradually improved. Consult date: 04/29/20 Time Seen: 14:00 HPI: Sherrie Muniz is a 69 year old femaleAdmitted to the hospital for the possibility of encephalopathy. Patient was last discharged from here on February 27, 2020 when she was being treated for UTI with E coli .she had respiratory distress with hypoxia but by the time she was discharged symptomatology had resolved. she is a wheelchair-bound patient nurses thought she was having change in the mental status over the last 72 hours .reportedly she was not ambulating as much as possible and was increasingly confused. her routine blood studies were at that time normal except creatinine was 1.6 ,urine was positive for 21 to 30 WBCs with trace leukocyte Estrace. patient was started on IV fluids and Invanz but blood cultures were drawn, additionally patient does have ongoing history of congestive heart failure, chronic obstructive pulmonary disease, chronic renal failure, diabetic retinopathy with legal blindness in left eye, in addition to underlying hyperlipidemia hypertension morbid obesity neurogenic bladder and tobacco abuse. pertinent investigation up until now includes negative Doppler venous study of the lower extremities, CT scan with old infarct of the left thalamus and SARS-CoV-2 pending. 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 Diastolic congestive heart failure History of colon polyps History of peptic ulcer disease Hyperlipidemia Hyperlipidemia Hypertension Insulin dependent diabetes mellitus Morbid obesity Neuropathy Overactive bladder Tobacco abuse Surgical History Surgical History History of cholecystectomy Family History Family History Mother Emphysema/COPD Father Carcinoma of colon Sibling Diabetes mellitus Social History Social History Social History: The patient is reported as single and that she is retired Surrogate decision maker: Yfn Cheung, nephew. Code status: Full code. Smoking packs per day: 1.5 Smoking cigarettes per day: 30.0 Years smoked: 47 Smoking pack-years: 70.50 Smoking status: Current every day smoker Tobacco type: cigarettes Second hand tobacco smoke exposure: Yes Additional smoking assessment comments: does not respond to how many cigarettes but stated she still smokes Alcohol intake: former Substance use: never Substance use type: does not use Additional living arrangements comments: Lives in a senior apartment in [place]. Reportedly independent of ADLs. Ambulates mainly with an electric scooter. Gender identity (if verbalized by the patient): Female Spiritual care concerns: No Meds Home Medications and Allergies Home Medications Medication Instructions Recorded Confirmed Type Adults Multivitamin 1 tablet PO DAILY 30 Days #30 02/27/20 04/23/20 Rx tablet Tresiba FlexTouch U-100 14 unit SUBCUT DAILY 30 Days #3 ml 02/27/20 04/23/20 Rx acetaminophen [Tylenol] 325 mg PO Q4-6H PRN 30 Days #30 02/27/20 04/23/20 Rx tablet allopurinol 100 mg PO DAILY 30 Days #30 tablet 02/27/20 04/23/20 Rx atorvastatin 20 mg PO DAILY 30 Days #30 tablet 02/27/20 04/23/20 Rx
[2020-04-28 17:21] LABS: Glucose Point of Care 121 (65-105)
[2020-04-28 20:00] VITALS: PULSE 80; RESP 20; O2SAT 95
[2020-04-28 20:35] LABS: SARS-CoV-2 RNA PCR Negative
[2020-04-28 22:00] VITALS: BP 188/98; PULSE 80; RESP 20; TEMP 36.8; O2SAT 95
[2020-04-28 22:11] LABS: Glucose Point of Care 120 (65-105)
[2020-04-29 05:40] VITALS: BP 185/64; PULSE 69; RESP 20; TEMP 36.4; O2SAT 91
[2020-04-29 07:51] LABS: Glucose Point of Care 105 (65-105)
[2020-04-29 08:00] VITALS: BP 143/55
[2020-04-29] MEDS: lisinopriL 20 MG TABLET 40 MG PO (08:29)
[2020-04-29] MEDS: FAMOTIDINE 20 MG/2 ML VIAL IV PUSH (08:29)
--- NOTE | 2020-04-29 10:00 | WPDCDIQUERY2 ---
CDI Query Clarification Request -04/27 Dr Manoz documented sepsis ruled out -04/28 you have documented sepsis, resolved -IV antibiotics discontinued 04/27 Please clarify if sepsis was ruled in or ruled out. -UTI documented -Asymptomatic bacteriuria documented -Asymptomatic UTI documented -04/22 urine culture grew >100,000 E coli ESBL -Antibiotics discontinued 04/27 Please clarify if UTI was ruled in or ruled out <Jesi Reyna RN - Last Filed: 04/29/20 10:05> Provider Comments SEPSIS RULED IN ESBL UTI <Amalia Rojo MD - Last Filed: 05/03/20 09:44>
[2020-04-29 14:00] VITALS: BP 124/68; PULSE 82; RESP 18; TEMP 36.2; O2SAT 97
--- NOTE | 2020-04-29 14:31 | PM.IMPN ---
Progress Note: A&P Assessment and Plan (1) Encephalopathy: Code(s): G93.40 - Encephalopathy, unspecified Status: Acute Assessment and Plan: Unclear etiology Supportive care (2) Acute alteration in mental status: Code(s): R41.82 - Altered mental status, unspecified Status: Acute Assessment and Plan: Unclear etiology (3) Sepsis: Code(s): A41.9 - Sepsis, unspecified organism Status: Resolved Assessment and Plan: Id rounding see recommendations (4) Urinary tract infection: Code(s): N39.0 - Urinary tract infection, site not specified Status: Acute Assessment and Plan: Asymptomatic bacteriuria (5) Hypertension: Qualifiers: Hypertension type: essential hypertension Qualified Code(s): I10 - Essential (primary) hypertension Code(s): I10 - Essential (primary) hypertension Status: Chronic Assessment and Plan: Stable Continue to monitor (6) Person under investigation for COVID-19: Code(s): Z20.828 - Contact with and (suspected) exposure to other viral communicable diseases Status: Ruled-out Assessment and Plan: Ruled out. (7) Chronic respiratory failure with hypoxia and hypercapnia: Code(s): J96.11 - Chronic respiratory failure with hypoxia; J96.12 - Chronic respiratory failure with hypercapnia Status: Resolved Assessment and Plan: On RA (8) CHF (congestive heart failure), NYHA class I: Code(s): I50.9 - Heart failure, unspecified Status: Chronic Assessment and Plan: Stable Subjective Date/time seen: 04/29/20 14:31 Interval history: Admitted with encephalopathy and sepsis, pt looks more awake today, not walking much. But opening her eyes and holding conversation. Seen by ID and neurology, hopefully home tomorrow. Review of Systems Review of Systems: All systems reviewed & are unremarkable except as noted in HPI and below Exam Narrative: Exam Narrative: Lying in bed smiling talking opening her eyes. Chest: Chest palpation & inspection: normal inspection of the chest Resp: Effort & Inspection: normal respiratory effort Cardio: Jugular venous distension: JVD present Rate: regular rate Rhythm: regular rhythm GI: GI Palp: Yes Soft to palpation Neuro: Gait exam (Neuro): Other gait observations present (Generailsed weakness ) Extrem: General: no pedal edema Psych: Appearance: grossly normal Objective Data Vital Signs Vital Signs: Vital Signs - 24 hr 04/28/20 20:00 04/28/20 22:00 04/29/20 05:40 Temperature 36.8 C 36.4 C Pulse Rate 80 80 69 Respiratory Rate 20 20 20 Blood Pressure 188/98 H 185/64 H Pulse Oximetry 95 95 91 04/29/20 08:00 Temperature Pulse Rate Respiratory Rate Blood Pressure 143/55 H Pulse Oximetry Intake/Output Intake/Output: Intake & Output 04/26/20 04/27/20 04/28/20 04/29/20 23:59 23:59 23:59 23:59 Intake Total 2300 1260 1700 250 Balance 2300 1260 1700 250 Meds/Results Medications: Active Medications Generic Name Dose Route Start Last Admin Trade Name Freq PRN Reason Stop Dose Admin Acetaminophen 1,000 mg 04/25/20 16:03 04/25/20 16:12 Acetaminophen 500 Mg Tablet PO 1,000 mg Q6H PRN Administration Mild Pain (1-3) or Fever Dextrose 12.5 gm 04/23/20 00:52 Dextrose 50% 25 Gm/50 Ml Syringe IV PUSH PRN PRN Hypoglycemia Protocol Famotidine 20 mg 04/22/20 21:00 04/29/20 08:29 Famotidine 20 Mg/2 Ml Vial IV PUSH 20 mg Q12HR CAITY Administration Glucagon 1 mg 04/23/20 00:52 Glucagon For Inj 1 Mg Vial IM PRN PRN Hypoglycemia Protocol Glucose 15 gm 04/23/20 00:52 Glucose Oral Gel 15 Gm Of Glucse In 37.5 Gm Tube PO PRN PRN Hypoglycemia Protocol Hydralazine HCl 10 mg 04/28/20 00:26 Hydralazine Hcl 20 Mg/Ml Vial IV PUSH Q4HR PRN SBP > 165 or DBP > 105 Dextrose 1,000 mls @ 100
[2020-04-29 18:06] LABS: Glucose Point of Care 108 (65-105)
[2020-04-29 18:21] LABS: Glucose Point of Care 144 (65-105)
[2020-04-29 21:36] LABS: Glucose Point of Care 169 (65-105)
[2020-04-29 22:00] VITALS: BP 164/74; PULSE 58; RESP 20; TEMP 36.7; O2SAT 96
[2020-04-30 06:00] VITALS: BP 160/54; PULSE 75; RESP 20; TEMP 37.4; O2SAT 96
[2020-04-30 07:55] LABS: Glucose Point of Care 134 (65-105)
[2020-04-30] MEDS: lisinopriL 20 MG TABLET 40 MG PO (08:53)
--- NOTE | 2020-04-30 12:13 | PM.IMPN ---
Progress Note: A&P Assessment and Plan (1) Encephalopathy: Code(s): G93.40 - Encephalopathy, unspecified Status: Resolved Assessment and Plan: Unclear etiology Supportive care (2) Acute alteration in mental status: Code(s): R41.82 - Altered mental status, unspecified Status: Resolved Assessment and Plan: Unclear etiology (3) Sepsis: Code(s): A41.9 - Sepsis, unspecified organism Status: Resolved Assessment and Plan: ID rounding see recommendations (4) Urinary tract infection: Code(s): N39.0 - Urinary tract infection, site not specified Status: Acute Assessment and Plan: Asymptomatic bacteriuria (5) Hypertension: Qualifiers: Hypertension type: essential hypertension Qualified Code(s): I10 - Essential (primary) hypertension Code(s): I10 - Essential (primary) hypertension Status: Chronic Assessment and Plan: Stable Continue to monitor (6) Person under investigation for COVID-19: Code(s): Z20.828 - Contact with and (suspected) exposure to other viral communicable diseases Status: Ruled-out Assessment and Plan: Ruled out. (7) Chronic respiratory failure with hypoxia and hypercapnia: Code(s): J96.11 - Chronic respiratory failure with hypoxia; J96.12 - Chronic respiratory failure with hypercapnia Status: Resolved Assessment and Plan: On RA (8) CHF (congestive heart failure), NYHA class I: Code(s): I50.9 - Heart failure, unspecified Status: Chronic Assessment and Plan: Stable Subjective Date/time seen: 04/30/20 12:13 Interval history: Admitted with encephalopathy and sepsis, pt looks more awake today, not walking much. But opening her eyes and holding conversation. Seen by ID and neurology. Pt is medically improved but is very weak on her legs. Review of Systems Review of Systems: All systems reviewed & are unremarkable except as noted in HPI and below Exam Narrative: Exam Narrative: Lying in bed smiling talking opening her eyes. Chest: Chest palpation & inspection: normal inspection of the chest Resp: Effort & Inspection: normal respiratory effort Cardio: Jugular venous distension: JVD present Rate: regular rate Rhythm: regular rhythm Neuro: Gait exam (Neuro): Other gait observations present (Generailsed weakness ) Extrem: General: no pedal edema Psych: Appearance: grossly normal Objective Data Vital Signs Vital Signs: Vital Signs - 24 hr 04/29/20 14:00 04/29/20 22:00 04/30/20 06:00 Temperature 36.2 C L 36.7 C 37.4 C Pulse Rate 82 58 L 75 Respiratory Rate 18 20 20 Blood Pressure 124/68 164/74 H 160/54 H Pulse Oximetry 97 96 96 Intake/Output Intake/Output: Intake & Output 04/27/20 04/28/20 04/29/20 04/30/20 23:59 23:59 23:59 23:59 Intake Total 1260 1700 1090 340 Balance 1260 1700 1090 340 Meds/Results Medications: Active Medications Generic Name Dose Route Start Last Admin Trade Name Freq PRN Reason Stop Dose Admin Acetaminophen 1,000 mg 04/25/20 16:03 04/25/20 16:12 Acetaminophen 500 Mg Tablet PO 1,000 mg Q6H PRN Administration Mild Pain (1-3) or Fever Dextrose 12.5 gm 04/23/20 00:52 Dextrose 50% 25 Gm/50 Ml Syringe IV PUSH PRN PRN Hypoglycemia Protocol Glucagon 1 mg 04/23/20 00:52 Glucagon For Inj 1 Mg Vial IM PRN PRN Hypoglycemia Protocol Glucose 15 gm 04/23/20 00:52 Glucose Oral Gel 15 Gm Of Glucse In 37.5 Gm Tube PO PRN PRN Hypoglycemia Protocol Hydralazine HCl 10 mg 04/28/20 00:26 Hydralazine Hcl 20 Mg/Ml Vial IV PUSH Q4HR PRN SBP > 165 or DBP > 105 Dextrose 1,000 mls @ 100 mls/hr 04/23/20 00:52 Dextrose 5% 1,000 Ml IVPB PRN PRN Hypoglycemia Protocol Insulin Aspart 4 - 8 units 04/23/20 08:00 04/30/20 08:53 Insulin Aspart (*Bkc) 100 Units/Ml SUB-Q Not Given
[2020-04-30 12:26] LABS: Glucose Point of Care 188 (65-105)
[2020-04-30 14:00] VITALS: BP 187/85; PULSE 98; RESP 20; TEMP 36.1; O2SAT 98
[2020-04-30 17:12] LABS: Glucose Point of Care 171 (65-105)
[2020-04-30 18:00] VITALS: BP 163/83; PULSE 56; RESP 18; TEMP 36.1; O2SAT 94
[2020-04-30 18:10] VITALS: BP 163/83; PULSE 56; RESP 18; TEMP 36.1; O2SAT 94
[2020-04-30] MEDS: hydrALAZINE HCL 20 MG/ML VIAL 10 MG IV PUSH ×2 (21:08→21:10)
[2020-04-30 21:42] LABS: SARS-CoV-2 RNA PCR Negative
[2020-04-30 21:46] VITALS: BP 165/72; PULSE 65; RESP 20; TEMP 36.5; O2SAT 97
[2020-04-30 21:47] LABS: Glucose Point of Care 137 (65-105)
[2020-05-01 05:29] VITALS: BP 168/69; PULSE 82; RESP 20; TEMP 36.7; O2SAT 96
[2020-05-01] MEDS: hydrALAZINE HCL 20 MG/ML VIAL 10 MG IV PUSH (05:50)
[2020-05-01 07:55] LABS: Glucose Point of Care 164 (65-105)
[2020-05-01] MEDS: lisinopriL 20 MG TABLET 40 MG PO (09:21)
[2020-05-01 11:49] LABS: Glucose Point of Care 225 (65-105)
[2020-05-01] MEDS: INSULIN ASPART (*BKC) 100 UNITS/ML SUB-Q ×2 (12:04→18:23)
--- NOTE | 2020-05-01 12:22 | PM.IMPN ---
Progress Note: A&P Assessment and Plan (1) Encephalopathy: Code(s): G93.40 - Encephalopathy, unspecified Status: Resolved Assessment and Plan: Supportive care (2) Acute alteration in mental status: Code(s): R41.82 - Altered mental status, unspecified Status: Resolved Assessment and Plan: Infective etiology (3) Sepsis: Code(s): A41.9 - Sepsis, unspecified organism Status: Resolved Assessment and Plan: ID rounding see recommendations Likely secondary to ESBL (4) Urinary tract infection: Code(s): N39.0 - Urinary tract infection, site not specified Status: Acute Assessment and Plan: ESBL grown in urine (5) Hypertension: Qualifiers: Hypertension type: essential hypertension Qualified Code(s): I10 - Essential (primary) hypertension Code(s): I10 - Essential (primary) hypertension Status: Chronic Assessment and Plan: Stable Continue to monitor (6) Person under investigation for COVID-19: Code(s): Z20.828 - Contact with and (suspected) exposure to other viral communicable diseases Status: Ruled-out Assessment and Plan: Ruled out. (7) Chronic respiratory failure with hypoxia and hypercapnia: Code(s): J96.11 - Chronic respiratory failure with hypoxia; J96.12 - Chronic respiratory failure with hypercapnia Status: Resolved Assessment and Plan: On RA (8) CHF (congestive heart failure), NYHA class I: Code(s): I50.9 - Heart failure, unspecified Status: Chronic Assessment and Plan: Stable Subjective Date/time seen: 05/01/20 12:22 Interval history: Admitted with encephalopathy and sepsis, pt looks better more awake and alert. Still weak on her legs. UC shows ESBL Review of Systems Review of Systems: All systems reviewed & are unremarkable except as noted in HPI and below Exam Narrative: Exam Narrative: Lying in bed smiling talking opening her eyes. Chest: Chest palpation & inspection: normal inspection of the chest Resp: Effort & Inspection: normal respiratory effort Cardio: Jugular venous distension: JVD present Rate: regular rate Rhythm: regular rhythm Neuro: Gait exam (Neuro): Other gait observations present (Generailsed weakness ) Extrem: General: no pedal edema Psych: Appearance: grossly normal Objective Data Vital Signs Vital Signs: Vital Signs - 24 hr 04/30/20 14:00 04/30/20 18:00 04/30/20 18:10 Temperature 36.1 C L 36.1 C L 36.1 C L Pulse Rate 98 56 L 56 L Respiratory Rate 20 18 18 Blood Pressure 187/85 H 163/83 H 163/83 H Pulse Oximetry 98 94 94 04/30/20 21:46 05/01/20 05:29 Temperature 36.5 C 36.7 C Pulse Rate 65 82 Respiratory Rate 20 20 Blood Pressure 165/72 H 168/69 H Pulse Oximetry 97 96 Intake/Output Intake/Output: Intake & Output 04/28/20 04/29/20 04/30/20 05/01/20 23:59 23:59 23:59 23:59 Intake Total 1700 1090 940 440 Balance 1700 1090 940 440 Meds/Results Medications: Active Medications Generic Name Dose Route Start Last Admin Trade Name Freq PRN Reason Stop Dose Admin Acetaminophen 1,000 mg 04/25/20 16:03 04/25/20 16:12 Acetaminophen 500 Mg Tablet PO 1,000 mg Q6H PRN Administration Mild Pain (1-3) or Fever Dextrose 12.5 gm 04/23/20 00:52 Dextrose 50% 25 Gm/50 Ml Syringe IV PUSH PRN PRN Hypoglycemia Protocol Glucagon 1 mg 04/23/20 00:52 Glucagon For Inj 1 Mg Vial IM PRN PRN Hypoglycemia Protocol Glucose 15 gm 04/23/20 00:52 Glucose Oral Gel 15 Gm Of Glucse In 37.5 Gm Tube PO PRN PRN Hypoglycemia Protocol Hydralazine HCl 10 mg 04/28/20 00:26 05/01/20 05:50 Hydralazine Hcl 20 Mg/Ml Vial IV PUSH 10 mg Q4HR PRN Administration SBP > 165 or DBP > 105 Dextrose 1,000 mls @ 100 mls/hr 04/23/20 00:52 Dextrose 5% 1,000 Ml IVPB PRN PRN Hypoglycemia Protocol I
[2020-05-01 14:00] VITALS: BP 154/68; PULSE 80; RESP 20; TEMP 36.6; O2SAT 93
[2020-05-01 17:20] LABS: Glucose Point of Care 247 (65-105)
[2020-05-01 21:35] LABS: Glucose Point of Care 103 (65-105)
[2020-05-01 22:00] VITALS: BP 169/71; PULSE 78; RESP 18; TEMP 36.5; O2SAT 94
[2020-05-01] MEDS: NITROFURANTOIN MONOHYD MACROCR 100 MG CAP PO (22:00)
[2020-05-02 06:00] VITALS: BP 153/75; PULSE 82; RESP 16; TEMP 36.2; O2SAT 94
[2020-05-02 08:28] LABS: Glucose Point of Care 166 (65-105)
[2020-05-02] MEDS: NITROFURANTOIN MONOHYD MACROCR 100 MG CAP PO (09:22)
[2020-05-02] MEDS: lisinopriL 20 MG TABLET 40 MG PO (09:22)
[2020-05-02 12:03] LABS: Glucose Point of Care 209 (65-105)
[2020-05-02] MEDS: INSULIN ASPART (*BKC) 100 UNITS/ML SUB-Q (12:45)
--- NOTE | 2020-05-02 13:37 | PM.DS ---
DS: Admitting Diagnosis Admitting Diagnosis Admitting Diagnosis: Encephalopathy DS: Discharge Diagnosis Discharge Diagnosis (1) Encephalopathy: Code(s): G93.40 - Encephalopathy, unspecified Status: Resolved Assessment and Plan: Supportive care, seen by neurology, ct head was ordered which showed nil acute old infarct only, cxr was negative also (2) Acute alteration in mental status: Code(s): R41.82 - Altered mental status, unspecified Status: Resolved Assessment and Plan: Infective etiology (3) Sepsis: Code(s): A41.9 - Sepsis, unspecified organism Status: Resolved Assessment and Plan: ID rounding see recommendations Likely secondary to ESBL (4) Urinary tract infection: Code(s): N39.0 - Urinary tract infection, site not specified Status: Acute Assessment and Plan: ESBL grown in urine intially on iv fluids and invanz now on macrobid seen by ID (5) Hypertension: Qualifiers: Hypertension type: essential hypertension Qualified Code(s): I10 - Essential (primary) hypertension Code(s): I10 - Essential (primary) hypertension Status: Chronic Assessment and Plan: Stable Continue to monitor (6) Person under investigation for COVID-19: Code(s): Z20.828 - Contact with and (suspected) exposure to other viral communicable diseases Status: Ruled-out Assessment and Plan: Ruled out. (7) Chronic respiratory failure with hypoxia and hypercapnia: Code(s): J96.11 - Chronic respiratory failure with hypoxia; J96.12 - Chronic respiratory failure with hypercapnia Status: Resolved Assessment and Plan: On RA (8) CHF (congestive heart failure), NYHA class I: Code(s): I50.9 - Heart failure, unspecified Status: Chronic Assessment and Plan: Stable DS: Summary Hospital Course Hospital Course: Admitted with encephalopathy and sepsis, pt looks better more awake and alert. Still weak on her legs. UC shows ESBL. Pt was initially on iv fluid and Invanz transitioned to oral Macrobid now. Pt had ct head and saw neurology. Pt had seen ID while in the hospital. Time Spent with Patient Time attestation: Total time spent providing and/or coordinating discharge services:40 minutes on day of discharge Exam Narrative: Exam Narrative: Lying in bed smiling talking opening her eyes. Chest: Chest palpation & inspection: normal inspection of the chest Resp: Effort & Inspection: normal respiratory effort Cardio: Jugular venous distension: JVD present Rate: regular rate Rhythm: regular rhythm Neuro: Gait exam (Neuro): Other gait observations present (Generailsed weakness ) Extrem: General: no pedal edema Psych: Appearance: grossly normal DS: Data Data Completed and Pending Labs on day of discharge: Labs from last 24 hours 05/02/20 05/02/20 05/01/20 11:53 08:04 21:24 POC Capillary Glucose 209 H 166 H 103 05/01/20 17:06 POC Capillary Glucose 247 H Discharge Plan Discharge Attending physician on discharge: Amalia Rojo Consulting providers: Franck Weathers ; Puneet Siddiqui Discharging Clinician: Amalia Rojo Anticipated Discharge Date/Time: 05/02/20 13:47 Patient Disposition: SNF Activity: as tolerated Diet: diabetic Discharge Instructions: Pt going for rehab in [facility] Pt to have rpt uc in 1 weeks time pt found to have esbl in her urine Patient Instructions: How to Stop Smoking (DC), Altered Mental Status (GEN) Stand Alone Forms: General Discharge Information Follow-up/Referrals: Ever,Cecelia Jnoas MD [Primary Care Provider] - Discharge Medications: New lisinopril 20 mg Tablet 40 mg PO QAM Qty: 90 RF: 0 nitrofurantoin monohyd/m-cryst [Macrobid] 100 mg Capsule 100 mg PO Q12HR Qty: 40 RF: 0 Continued acetaminophen [Tylenol] 325 mg Tablet 325 mg PO Q4-6H PRN (Cromwell
[2020-05-02 14:00] VITALS: BP 147/63; PULSE 76; RESP 24; TEMP 36.3; O2SAT 96
[2020-05-02 18:02] LABS: Glucose Point of Care 180 (65-105)
== END 2020-05-02 19:20 | DRG 872 ==
LOC: ANHED 17:35 → ANH3MEDSUR 18:27
PROVIDERS: Emergency Medicine Emergency Medical Services; Internal Medicine; Nurse Practitioner; Physician Assistant; Admitting Provider Internal Medicine; Emergency Provider Emergency Medicine; PCP Internal Medicine; Visit Provider Family Medicine
DX: A41.9 Sepsis, unspecified organism (principal); N39.0 Urinary tract infection, site not specified; I13.0 Hypertensive heart and chronic kidney disease with heart failure and stage 1 through stage 4 chronic kidney disease, or unspecified chronic kidney disease; G93.40 Encephalopathy, unspecified; J96.11 Chronic respiratory failure with hypoxia; J96.12 Chronic respiratory failure with hypercapnia; I50.32 Chronic diastolic (congestive) heart failure; Z16.12 Extended spectrum beta lactamase (ESBL) resistance; Z20.822 Contact with and (suspected) exposure to COVID-19; J44.9 Chronic obstructive pulmonary disease, unspecified; E11.319 Type 2 diabetes mellitus with unspecified diabetic retinopathy without macular edema; E11.40 Type 2 diabetes mellitus with diabetic neuropathy, unspecified; E11.22 Type 2 diabetes mellitus with diabetic chronic kidney disease; N18.9 Chronic kidney disease, unspecified; F17.210 Nicotine dependence, cigarettes, uncomplicated; E78.5 Hyperlipidemia, unspecified; N32.81 Overactive bladder; N31.9 Neuromuscular dysfunction of bladder, unspecified; Z28.21 Immunization not carried out because of patient refusal; Z79.82 Long term (current) use of aspirin; Z79.899 Other long term (current) drug therapy; Z86.010 Personal history of colon polyps; Z87.11 Personal history of peptic ulcer disease; Z99.3 Dependence on wheelchair; Z86.73 Personal history of transient ischemic attack (TIA), and cerebral infarction without residual deficits
CPT/HCPCS: 36415; 36600; 51701; 70450; 71046; 80048; 80053; 81001; 82805; 82948; 83605; 83615; 83690; 83735; 84100; 84443; 84484; 85025; 85610; 85730; 86140; 87040; 87077; 87086; 87088; 87186; 93005; 93970; 94762; 96361; 96365; 96366; 96367; 96375; 96376; 97110; 97161; 97165; 97530; 97535; 99285; A9270; C9803; G0378; J0131; J0360; J1335; J1815; J7120; U0003; U0005

== ENCOUNTER 2020-08-11 07:40 | Inpatient (IN) | payer MEDICARE, MEDICAID, SELFPAY ==
[2020-08-11] VITALS (42 sets, daily range): BP systolic 96–130; BP diastolic 48–80; PULSE 58–96; RESP 16–30; TEMP 35.6–37.6; O2SAT 88–100
--- NOTE | ~2020-08-11 | XR_ITS ---
EXAMINATION: XR chest 2V EXAM DATE: 08/11/2020 08:54 INDICATION: Weakness, stupor. History CHF hypertension and COPD. TECHNIQUE: Frontal and lateral projections of the chest obtained and reviewed. Comparison is made to prior examination from 04/22/2020. FINDINGS: Ill-defined left basilar greater than right basilar airspace disease, could be edema or pne umonia. Please clinically correlate. It and upper lung zones are clear. Mild cardiomegaly. There is n o pneumothorax suspected. There are bony degenerative changes. IMPRESSION: 1. Bibasilar left greater than right airspace disease suspicious for edema or pneumonia. Reviewed, dictated and finalized at location A.
--- NOTE | ~2020-08-11 | US_ITS ---
EXAMINATION: US venous doppler [facility] DATE: 08/11/2020 16:55 INDICATION: Lower limb edema. TECHNIQUE: Grayscale ultrasound images without and with compression and Doppler ultrasound images of the bilateral lower extremity veins were obtained. COMPARISON: Ultrasound 04/23/2020 FINDINGS: The visualized portions of right common femoral vein, profunda (deep) femoral vein, femoral vein, pop liteal vein, peroneal veins, posterior tibial veins, and greater saphenous vein outflow are patent. The visualized portions of left common femoral vein, profunda femoral vein, femoral vein, popliteal v ein, peroneal veins, posterior tibial veins, and greater saphenous vein outflow are patent. IMPRESSION: 1. No deep venous thrombosis. Reviewed, dictated and finalized at location A.
--- NOTE | ~2020-08-11 | US_ITS ---
EXAMINATION: US renal BI DATE: 08/11/2020 16:56 INDICATION: Acute kidney injury. TECHNIQUE: Multiple ultrasound grayscale images of the kidneys were obtained. COMPARISON: Ultrasound kidneys 12/21/2019, abdomen MRI 02/12/2013 FINDINGS: The right kidney measures 10.7 x 5.4 x 4.7 cm. The left kidney measures 11.2 x 5.1 x 5.9 cm. The kidn eys demonstrate normal parenchymal echogenicity. There is no hydronephrosis. The bladder is distended . The liver demonstrates coarsened echotexture and surface nodularity, consistent with cirrhosis. IMPRESSION: 1. Normal kidney sizes. No hydronephrosis. 2. Distended bladder. 3. Cirrhosis of the liver. Reviewed, dictated and finalized at location A.
--- NOTE | 2020-08-11 07:47 | ECG_ITS ---
SINUS RHYTHM POSSIBLE LEFT ATRIAL ENLARGEMENT POOR R WAVE PROGRESSION, ANTERIOR LEADS BASELINE ARTIFACT- II, III, AVR, AVF, V1, V3-V6 BORDERLINE ECG Electronically Signed On 08-12-2020 9:12:50 CDT by Monroe MORA
[2020-08-11 07:56] LABS: Glucose Point of Care 85 mg/dl (65-105)
[2020-08-11 08:39] LABS: Basophils Percent Auto 0.5 % (0.2-1.2); Eosinophils Percent Auto 0.3 % (0-4.4); Hematocrit 32.9 % (37.0-47.0); Hemoglobin 9.5 g/dL (12.0-15.0); Immature Granulocyte Absolute 0.03 K/mm3 (0.00-0.031); Immature Granulocyte Percent A 0.4 % (0-0.5); Lymphocytes Percent Auto 19.9 % (18.3-44.2); Mean Corpuscular HGB Conc 28.9 g/dl (32-36); Mean Corpuscular Hemoglobin 27.7 pg (26-34); Mean Corpuscular Volume 95.9 fl (80-100); Mean Platelet Volume 9.8 fl (7.4-10.4); Monocytes Absolute Auto 0.4 K/mm3 (0.1-0.6); Neutrophils Absolute Auto 5.6 K/mm3 (1.3-6.7); Neutrophils Percent Auto 73.9 % (45.5-73.1); Nucleated Red Blood Cells Perc 0.3 % (0.0-0.2); Platelet Count Result 268 k/mm3 (150-375); Red Blood Count 3.43 M/mm3 (4.2-5.4); Red Cell Distribution Width 15.9 % (11.5-14.5); White Blood Count 7.5 K/mm3 (4.5-10.0)
[2020-08-11 08:42] LABS: Carboxyhemoglobin 5.2 % THb (0-2.0); Fractional Inspired Oxygen 36 %; HCO3 ABG 33.7 mEq/l (22.0-26.0); Methemoglobin ABG 0.1 %THb (0-1.5); Oxygen Content ABG 13.2 %vol (16.0-22.0); Oxygen Saturation ABG 88.3 % (95.0-100.0); Oxyhemoglobin 86.3 % THb (90.0-100.0); PO2 ABG 70.9 mmHg (80.0-100.0); PO2 FiO2 Ratio Arterial Blood 1.97 %; Reduced Hemoglobin 8.4 %THb (0-5.0); Total Hemoglobin 10.8 g/dL (12.0-18.0)
[2020-08-11 08:43] LABS: Device NASAL CANNULA; Modified Allen's Test Pass; PCO2 ABG 95.5 mmHg (35.0-45.0); Site Drawn LEFT RADIAL; pH ABG 7.166 (7.350-7.450)
--- NOTE | 2020-08-11 08:46 | ED.WEAKNESS ---
HPI - Weakness General Chief complaint: Weakness Stated complaint: weakness Time Seen by Provider: 08/11/20 07:46 History of Present Illness HPI Narrative: Patient is a 70-year-old female with history of COPD who presents ER with altered mental status. Per EMS this is the third time they have been out to the patient's home in the last day for falls and weakness. Previously patient was alert and oriented x3 but now she is more confused and thinks the month is April. Patient has some coarse lung sounds. She is not typically requiring oxygen. Upon arrival here her oxygen saturation is in the 80s. 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 Diastolic congestive heart failure History of colon polyps History of peptic ulcer disease Hyperlipidemia Hyperlipidemia Hypertension Insulin dependent diabetes mellitus Morbid obesity Neuropathy Overactive bladder Tobacco abuse Surgical History Surgical History History of cholecystectomy Family History Family History Mother Emphysema/COPD Father Carcinoma of colon Sibling Diabetes mellitus Social History Social History Social History: The patient is reported as single and that she is retired Surrogate decision maker: Yfn Cheung, nephew. Code status: Full code. Smoking packs per day: 1.5 Smoking cigarettes per day: 30.0 Years smoked: 47 Smoking pack-years: 70.50 Smoking status: Current every day smoker Tobacco type: cigarettes Second hand tobacco smoke exposure: Yes Additional smoking assessment comments: does not respond to how many cigarettes but stated she still smokes Alcohol intake: former Substance use: never Substance use type: does not use Additional living arrangements comments: Lives in a senior apartment in [place]. Reportedly independent of ADLs. Ambulates mainly with an electric scooter. Gender identity (if verbalized by the patient): Female Spiritual care concerns: No Exam Narrative: Exam Narrative: GENERAL: Chronically ill-appearing, well-nourished, and in no acute distress. HEAD: Normocephalic, atraumatic. ENT: Mucous membranes moist. CHEST: Coarse rales bilaterally. No respiratory distress. HEART: Regular rate and rhythm. Normal peripheral pulses. ABDOMEN: Soft, nontender, nondistended. EXTREMITIES: Normal range of motion. Chronic venous stasis changes to the lower extremities bilaterally.. SKIN: Warm, dry, no rash. NEURO: Alert and oriented x2. PSYCH: Normal mood and affect. Course Course Emergency Course: Patient improving with BiPAP. Admit to hospitalist service. IV fluids initiated as well as IV antibiotics. Vital Signs Vital signs: Vital Signs Temperature 99.6 F 08/11/20 07:48 Pulse Rate 95 08/11/20 07:48 Respiratory Rate 28 H 08/11/20 07:48 Blood Pressure 114/66 08/11/20 07:48 Pulse Oximetry 88 L 08/11/20 07:48 Temperature 99.6 F 08/11/20 07:48 Pulse Rate 74 08/11/20 10:00 Respiratory Rate 20 08/11/20 10:00 Blood Pressure 106/63 08/11/20 10:00 Pulse Oximetry 96 08/11/20 10:00 MDM - Weakness Lab Data Result diagrams: 08/11/20 08:24 08/11/20 08:24 Labs: Lab Results
[2020-08-11 08:49] LABS: Alanine Aminotransferase 22 U/L (4-35); Albumin Level 3.4 g/dL (3.5-5.1); Alkaline Phosphatase 244 U/L (38-126); Anion Gap 8 mmol/L (8-16); Aspartate Amino Transferase 45 U/L (14-36); Bilirubin,Total 0.1 mg/dL (0.2-1.3); Blood Urea Nitrogen 56 mg/dL (7-17); Calcium 8.6 mg/dL (8.4-10.2); Carbon Dioxide 31 mmol/L (22-30); Chloride 103 mmol/L (98-107); Estimated CRCL calculation 23 ml/min; Estimated Glomerular Filt Rate 20; Glucose 79 mg/dL (65-105); Lactic Acid Reflex 0.6 mmol/L (0.7-2.1); Potassium 4.2 mmol/L (3.4-5.0); Sodium 142 mmol/L (137-145)
[2020-08-11 08:50] LABS: Add Urine Microscopic? YES; Appearance Urine Clear (Clear); Bacteria Urine Trace /hpf; Bilirubin Urine Negative (Negative); Blood Urine Negative (Negative); Color Urine Yellow (Yellow); Glucose Urine UA Negative (Negative); Ketones Urine Negative (Negative); Leukocyte Esterase Ur Trace LEU/UL (Negative); Mucus Urine Rare /lpf; Nitrate Urine Negative (Negative); Protein Urine 1+ mg/dL (Negative); Specific Grav Ur 1.013 (1.001-1.035); Squamous Epithelial Cell Urine Rare /hpf (Few); Urobilinogen Urine Negative mg/dL (<2.0); WBC Urine 0-3 /hpf
[2020-08-11] MEDS: SODIUM CHLORIDE 0.9% IV 1,000 ML 999 ML IV CONT (09:03)
[2020-08-11 09:13] LABS: Platelet Estimate Adequate (Adequate)
[2020-08-11 09:14] LABS: Hypochromasia 1+ (NORMAL)
[2020-08-11 10:10] LABS: Alveolar/Arterial O2 Gradient 65.4 mmHg; Base Excess ABG 0.3 mEq/l (+/-2.0); Carboxyhemoglobin 4.2 % THb (0-2.0); Fractional Inspired Oxygen 30 %; HCO3 ABG 29.3 mEq/l (22.0-26.0); Methemoglobin ABG 0.2 %THb (0-1.5); Oxygen Content ABG 12.3 %vol (16.0-22.0); Oxyhemoglobin 85.4 % THb (90.0-100.0); PO2 ABG 61.2 mmHg (80.0-100.0); PO2 FiO2 Ratio Arterial Blood 2.04 %; Reduced Hemoglobin 10.2 %THb (0-5.0); Total Hemoglobin 10.2 g/dL (12.0-18.0)
[2020-08-11 10:12] LABS: Modified Allen's Test Pass; Oxygen Saturation ABG 85.3 % (95.0-100.0); PCO2 ABG 74.3 mmHg (35.0-45.0); Site Drawn RIGHT BRACHIAL; pH ABG 7.214 (7.350-7.450)
[2020-08-11 10:14] LABS: Device NON-INVASIVE VENT
[2020-08-11 10:15] LABS: Non-Invasive Expiratory Pressure 8 CMH2O; Non-Invasive Inspiratory Pressure 16 CMH2O; Non-Invasive Vent Rate 18 /MIN
--- NOTE | 2020-08-11 10:43 | PC.NURSE ---
Pt's bipap machine beeping, pt pulling at tube and self-disconnected, stating help and take this off . Sats 79-80%, improved after repositioning and sitting HOB up. Dr. Rushnig aware
[2020-08-11] MEDS: LORazepam INJ (*CRX) 2 MG/ML VIAL 0.5 MG IV PUSH (10:46)
--- NOTE | 2020-08-11 11:10 | PC.NURSE ---
O2 for bipap increased to 50%.
--- NOTE | 2020-08-11 13:25 | ADMGEN ---
This patient, Sherrie Muniz, was admitted to IMU Room 232-01. Patient/family oriented to hospital policies and general routines including ID bracelet, bed and alarms, visiting hours, pain management, procedures, bathroom and other care routines, personal items, smoking policy, room service/diet, and visiting hours. Information on how to activate the Rapid Response Team has been discussed. Patient/Family are encouraged to report perceived risks to care and to ask questions if they do not understand what they are told or what they should do.
--- NOTE | 2020-08-11 15:24 | PM.IMHP ---
H&P: HPI History of Present Illness Date/Time: 08/11/20 15:24 this is a 70-year-old female patient who has a past medical history of COPD and congestive heart failure. The patient was very confused in the emergency room and was thinking that the month was April. She was having some force lung sounds. She is not typically on oxygen. Her O2 saturation was 80% when she arrived in the emergency room. Initial ABG pH initially was 7.166 and repeat was 7.214. This was after the patient had been on a BiPAP machine for approximately 1 hour. Patient was starting to wake up and she was given Ativan in the emergency room. Now she is resting quietly. She is not responding to any of the questions I ask her. Her BiPAP is 16 over 8. CO2 was 95.5 and is down to 74.3 now. Chest x-ray was read as bibasilar left greater than right airspace disease suspicious for edema or pneumonia. The patient was started on community-acquired pneumonia protocol antibiotics with azithromycin Rocephin. Patient was given IV fluids and azithromycin Rocephin and Ativan in the emergency room. 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 Diastolic congestive heart failure DM type 2 (diabetes mellitus, type 2) Essential hypertension Hepatitis History of colon polyps History of peptic ulcer disease Hyperlipidemia Hyperlipidemia Hyperlipidemia Hypertension Insulin dependent diabetes mellitus Metabolic encephalopathy Morbid obesity Neuropathy OAB (overactive bladder) Obesity Overactive bladder PUD (peptic ulcer disease) Tobacco abuse Surgical History Surgical History History of bladder surgery History of cholecystectomy Family History Family History Sibling No problems noted. Mother Emphysema/COPD Father Carcinoma of colon Sibling Diabetes mellitus Social History Social History (Updated 08/11/20 @ 15:33 by Cheri Lucero NP) Social History: The patient is reported as and that she is retired Surrogate decision maker: Yfn Cheung, nephew. Code status: Full code. Smoking packs per day: 1.5 Smoking cigarettes per day: 30.0 Years smoked: 47 Smoking pack-years: 70.50 Smoking status: Current every day smoker Tobacco type: cigarettes Second hand tobacco smoke exposure: Yes Additional smoking assessment comments: does not respond to how many cigarettes but stated she still smokes Alcohol intake: unknown Substance use: unknown Substance use type: does not use Additional living arrangements comments: Lives in a senior apartment in [place]. Reportedly independent of ADLs. Ambulates mainly with an electric scooter. Gender identity (if verbalized by the patient): Female Spiritual care concerns: No Meds Home Medications and Allergies Home Medications Medication Instructions Recorded Confirmed Type allopurinol 100 mg PO DAILY 01/17/20 08/11/20 History aspirin 81 mg PO DAILY 01/17/20 08/11/20 History furosemide 40 mg PO DAILY 01/17/20 08/11/20 History gabapentin 300 mg PO TID 01/17/20 08/11/20 History albuterol sulfate [Proventil HFA] 2 puff INHALATION QID PRN #8.5 g 01/22/20 08/11/20 Rx budesonide-formoterol [Symbicort] 2 puff INHALATION Q12HR #10.2 g 01/22/20 08/11/20 Rx docusate sodium 100 mg PO Q12HR #30 cap
[2020-08-11 16:06] LABS: Glucose Point of Care 88 mg/dl (65-105)
[2020-08-11 17:04] LABS: Base Excess ABG 2.4 mEq/l (+/-2.0); Fractional Inspired Oxygen 30 %; HCO3 ABG 31.3 mEq/l (22.0-26.0); Oxygen Content ABG 13.4 %vol (16.0-22.0); Oxyhemoglobin 88.7 % THb (90.0-100.0); PO2 ABG 61.6 mmHg (80.0-100.0); PO2 FiO2 Ratio Arterial Blood 2.05 %; Total Hemoglobin 10.7 g/dL (12.0-18.0)
[2020-08-11 17:07] LABS: Device NON-INVASIVE VENT; Non-Invasive Inspiratory Pressure 16 CMH2O; Non-Invasive Vent Rate 18 /MIN; Oxygen Saturation ABG 86.4 % (95.0-100.0); PCO2 ABG 74.3 mmHg (35.0-45.0); Site Drawn RIGHT BRACHIAL; pH ABG 7.242 (7.350-7.450)
[2020-08-11 17:08] LABS: Non-Invasive Expiratory Pressure 8 CMH2O
[2020-08-11] MEDS: NICOTINE (*PBKC) 21 MG PATCH 1 PATCH TRANSDERM (17:21)
[2020-08-11] MEDS: DEXTROSE 50% 25 GM/50 ML SYRINGE IV PUSH (17:22)
[2020-08-11 17:53] LABS: Glucose Point of Care 99 mg/dl (65-105)
[2020-08-11 17:53] LABS: Glucose Point of Care 62 mg/dl (65-105)
[2020-08-11 19:31] LABS: Alveolar/Arterial O2 Gradient 74.4 mmHg; Base Excess ABG 3.3 mEq/l (+/-2.0); Fractional Inspired Oxygen 30 %; HCO3 ABG 31.4 mEq/l (22.0-26.0); Oxygen Content ABG 13.7 %vol (16.0-22.0); Oxyhemoglobin 88.9 % THb (90.0-100.0); PO2 ABG 59.5 mmHg (80.0-100.0); PO2 FiO2 Ratio Arterial Blood 1.98 %; Total Hemoglobin 10.9 g/dL (12.0-18.0)
[2020-08-11 19:34] LABS: Device NON-INVASIVE VENT; Oxygen Saturation ABG 86.7 % (95.0-100.0); PCO2 ABG 68.1 mmHg (35.0-45.0); Site Drawn RIGHT BRACHIAL; pH ABG 7.282 (7.350-7.450)
[2020-08-11 19:35] LABS: Non-Invasive Expiratory Pressure 10 CMH2O; Non-Invasive Inspiratory Pressure 18 CMH2O; Non-Invasive Vent Rate 18 /MIN
[2020-08-11] MEDS: IPRATROPIUM BR 0.02% INH SOLN 0.5 MG/2.5 ML VIAL INHALATION (19:48)
[2020-08-11] MEDS: PANTOPRAZOLE SODIUM IV 40 MG VIAL IV PUSH (20:36)
[2020-08-11] MEDS: methylPREDNISolone SOD SUCC 125 MG VIAL 60 MG IV PUSH (20:36)
[2020-08-11 21:49] LABS: Alveolar/Arterial O2 Gradient 141.4 mmHg; Base Excess ABG 0.4 mEq/l (+/-2.0); Carboxyhemoglobin 1.2 % THb (0-2.0); Fractional Inspired Oxygen 40 %; HCO3 ABG 27.9 mEq/l (22.0-26.0); Methemoglobin ABG 0.2 %THb (0-1.5); Oxygen Content ABG 13.9 %vol (16.0-22.0); Oxygen Saturation ABG 93.1 % (95.0-100.0); Oxyhemoglobin 92.8 % THb (90.0-100.0); PCO2 ABG 59.7 mmHg (35.0-45.0); PO2 ABG 75.1 mmHg (80.0-100.0); PO2 FiO2 Ratio Arterial Blood 1.88 %; Reduced Hemoglobin 5.8 %THb (0-5.0); Total Hemoglobin 10.6 g/dL (12.0-18.0)
[2020-08-11 21:50] LABS: Device NON-INVASIVE VENT; Non-Invasive Expiratory Pressure 10 CMH2O; Non-Invasive Inspiratory Pressure 20 CMH2O; Non-Invasive Vent Rate 18 /MIN; Site Drawn RIGHT BRACHIAL; pH ABG 7.287 (7.350-7.450)
[2020-08-11 23:31] LABS: SARS-CoV-2 RNA PCR Negative
[2020-08-11 23:32] LABS: Glucose Point of Care 114 mg/dl (65-105)
[2020-08-12] VITALS (22 sets, daily range): BP systolic 116–130; BP diastolic 35–79; PULSE 65–82; RESP 16–442; TEMP 36.4–36.8; O2SAT 89–100
[2020-08-12] MEDS: IPRATROPIUM BR 0.02% INH SOLN 0.5 MG/2.5 ML VIAL INHALATION ×4 (01:31→19:18)
[2020-08-12 04:36] LABS: Alveolar/Arterial O2 Gradient 143.1 mmHg; Base Excess ABG -0.8 mEq/l (+/-2.0); Carboxyhemoglobin 0.5 % THb (0-2.0); Device NON-INVASIVE VENT; Fractional Inspired Oxygen 40 %; Methemoglobin ABG 0.2 %THb (0-1.5); Oxygen Saturation ABG 94.9 % (95.0-100.0); Oxyhemoglobin 94.8 % THb (90.0-100.0); PCO2 ABG 52.9 mmHg (35.0-45.0); PO2 ABG 81.3 mmHg (80.0-100.0); PO2 FiO2 Ratio Arterial Blood 2.03 %; Reduced Hemoglobin 4.5 %THb (0-5.0); Site Drawn RIGHT BRACHIAL; Total Hemoglobin 11.2 g/dL (12.0-18.0)
[2020-08-12 04:37] LABS: Non-Invasive Expiratory Pressure 10 CMH2O; Non-Invasive Inspiratory Pressure 20 CMH2O; Non-Invasive Vent Rate 18 /MIN
[2020-08-12 05:06] LABS: Hematocrit 31.6 % (37.0-47.0); Hemoglobin 9.3 g/dL (12.0-15.0); Mean Corpuscular HGB Conc 29.4 g/dl (32-36); Mean Corpuscular Hemoglobin 27.8 pg (26-34); Mean Corpuscular Volume 94.6 fl (80-100); Platelet Count Result 242 k/mm3 (150-375); Red Blood Count 3.34 M/mm3 (4.2-5.4); Red Cell Distribution Width 15.2 % (11.5-14.5)
[2020-08-12 05:14] LABS: Hemoglobin A1C 5.8 % (<5.7)
[2020-08-12 05:21] LABS: Alanine Aminotransferase 22 U/L (4-35); Albumin Level 2.9 g/dL (3.5-5.1); Alkaline Phosphatase 237 U/L (38-126); Anion Gap 8 mmol/L (8-16); Aspartate Amino Transferase 34 U/L (14-36); Bilirubin,Total 0.2 mg/dL (0.2-1.3); Blood Urea Nitrogen 50 mg/dL (7-17); Calcium 8.8 mg/dL (8.4-10.2); Carbon Dioxide 29 mmol/L (22-30); Chloride 105 mmol/L (98-107); Estimated CRCL calculation 30 ml/min; Estimated Glomerular Filt Rate 28; Glucose 146 mg/dL (65-105); Potassium 4.3 mmol/L (3.4-5.0); Sodium 142 mmol/L (137-145)
[2020-08-12 05:39] LABS: Lactate Dehydrogenase 358 U/L (313-618)
[2020-08-12 05:46] LABS: Band Neutrophils Percent 10 % (0-6); Lymphocytes Absolute Manual 0.42 K/mm3 (1.1-4.5); Monocytes Absolute Manual 0.28 K/mm3 (0.1-0.90); Monocytes Percent Manual 2 % (3-9); Neutrophils Percent Manual 85 % (46-73); Total Cells Counted 100
[2020-08-12 05:47] LABS: Platelet Estimate Adequate (Adequate)
[2020-08-12] MEDS: methylPREDNISolone SOD SUCC 125 MG VIAL 60 MG IV PUSH ×3 (05:54→21:57)
[2020-08-12 06:10] LABS: Thyroid Stimulating Hormone Reflex 0.246 uIU/mL (0.465-4.68)
[2020-08-12 06:44] LABS: Free T4 Free Thyroxine Reflex 1.18 ng/dL (0.78-2.19)
[2020-08-12 08:05] LABS: Total Triiodothyronine (T3) 0.53 NG/ML (0.97-1.69)
[2020-08-12] MEDS: PANTOPRAZOLE SODIUM IV 40 MG VIAL IV PUSH (08:47)
[2020-08-12] MEDS: FUROSEMIDE INJ 40 MG/4 ML VIAL IV PUSH (08:47)
[2020-08-12] MEDS: NICOTINE (*PBKC) 21 MG PATCH 1 PATCH TRANSDERM (08:47)
[2020-08-12] MEDS: GABAPENTIN 300 MG CAPSULE PO ×3 (10:45→16:39)
[2020-08-12 11:08] LABS: Glucose Point of Care 208 mg/dl (65-105)
[2020-08-12] MEDS: INSULIN ASPART (*BKC) 100 UNITS/ML SUB-Q ×3 (11:19→21:56)
--- NOTE | 2020-08-12 15:16 | PC.NURSE ---
This patient, Sherrie Muniz, was transferred to [ [id number]] on 08/12/20 at 1516. Personal belongings sent with patient. Report given to [RUMA Marsh @ 1894 ]. Appropriate documentation sent with patient.
--- NOTE | 2020-08-12 15:43 | PC.NURSE ---
Pt transfer received from IMU at 1526 08/12/20.
[2020-08-12 16:14] LABS: Glucose Point of Care 256 mg/dl (65-105)
[2020-08-13] VITALS (9 sets, daily range): PULSE 69–78; RESP 16–22; O2SAT 93–96
[2020-08-13] MEDS: IPRATROPIUM BR 0.02% INH SOLN 0.5 MG/2.5 ML VIAL INHALATION ×3 (02:02→13:42)
[2020-08-13 03:27] LABS: Glucose Point of Care 457 mg/dl (65-105)
[2020-08-13 03:39] LABS: Glucose Point of Care 443 mg/dl (65-105)
[2020-08-13] MEDS: INSULIN ASPART (*BKC) 100 UNITS/ML 8 UNITS SUB-Q (03:57)
[2020-08-13] MEDS: methylPREDNISolone SOD SUCC 125 MG VIAL 60 MG IV PUSH (06:14)
[2020-08-13] MEDS: NICOTINE (*PBKC) 21 MG PATCH 1 PATCH TRANSDERM (08:06)
[2020-08-13] MEDS: FUROSEMIDE INJ 40 MG/4 ML VIAL IV PUSH (08:06)
[2020-08-13] MEDS: GABAPENTIN 300 MG CAPSULE PO ×2 (08:06→12:28)
[2020-08-13 08:15] LABS: Glucose Point of Care 352 mg/dl (65-105)
[2020-08-13] MEDS: INSULIN ASPART (*BKC) 100 UNITS/ML SUB-Q (08:39)
[2020-08-13 11:55] LABS: Glucose Point of Care 437 mg/dl (65-105)
[2020-08-13] MEDS: INSULIN ASPART (*BKC) 100 UNITS/ML 12 UNITS SUB-Q (12:28)
--- NOTE | 2020-08-20 14:33 | PM.IMPN ---
Progress Note: A&P Assessment and Plan (1) Respiratory failure with hypoxia and hypercapnia: Code(s): J96.91 - Respiratory failure, unspecified with hypoxia; J96.92 - Respiratory failure, unspecified with hypercapnia Status: Acute Assessment and Plan: Pt is off Bipap and is doing well. ABG reviwed (2) CAP (community acquired pneumonia): Code(s): J18.9 - Pneumonia, unspecified organism Status: Acute Assessment and Plan: Continue with nebulizers. Continue azithromycin Rocephin. (3) Suspected COVID-19 virus infection: Code(s): Z20.822 - Contact with and (suspected) exposure to COVID-19 Status: Ruled-out Assessment and Plan: Ruled out (4) Type 2 diabetes mellitus: Code(s): E11.9 - Type 2 diabetes mellitus without complications Status: Acute Assessment and Plan: Accu-Chek AC and HS with sliding scale. (5) Hyperlipidemia: Qualifiers: Hyperlipidemia type: unspecified Qualified Code(s): E78.5 - Hyperlipidemia, unspecified Code(s): E78.5 - Hyperlipidemia, unspecified Status: Chronic (6) Hypertension: Qualifiers: Hypertension type: essential hypertension Qualified Code(s): I10 - Essential (primary) hypertension Code(s): I10 - Essential (primary) hypertension Status: Chronic Assessment and Plan: P.r.n. hydralazine (7) Chronic obstructive pulmonary disease: Qualifiers: COPD type: unspecified COPD Qualified Code(s): J44.9 - Chronic obstructive pulmonary disease, unspecified Code(s): J44.9 - Chronic obstructive pulmonary disease, unspecified Status: Acute Assessment and Plan: Continue neb treatment. (8) Insulin dependent diabetes mellitus: Status: Acute Assessment and Plan: Accu-Cheks AC and HS. Sliding scale insulin (9) Neuropathy: Code(s): G62.9 - Polyneuropathy, unspecified Status: Acute Assessment and Plan: Continue with gabapentin when the patient is more awake (10) TIMOTEO (acute kidney injury): Code(s): N17.9 - Acute kidney failure, unspecified Status: Inactive Assessment and Plan: Creatinine is 2.4 which is higher than normal. Please continue to monitor. May consider a renal ultrasound. Renal US shows - . Normal kidney sizes. No hydronephrosis. 2. Distended bladder. 3. Cirrhosis of the liver. pt did not know this before Subjective Date/time seen: 08/12/2020 Review of Systems Review of Systems: All systems reviewed & are unremarkable except as noted in HPI and below Exam Const: General: cooperative, healthy appearing, comfortable and no acute distress Nutritional Appearance: overweight Orientation/consciousness: oriented to person, oriented to place, oriented to time and patient oriented x3 Limitations: no limitations Resp: Effort & Inspection: normal respiratory effort Auscultation: rhonchi Percussion: percussion normal Cardio: Palpation: normal PMI Rate: regular rate Rhythm: regular rhythm Heart sounds: S1 normal heart sound present and S2 normal heart sound present Peripheral pulses: Peripheral pulses 2+ throughout GI: Inspection: normal to inspection Auscultation: normal bowel sounds Skin: General skin exam: normal color Lesions: no lesions Rashes: no rashes Trauma: no lacerations or abrasions Wounds: no wounds Hair: normal Nails: normal Neuro: General: oriented to person, oriented to place, oriented to time and patient oriented x3 Cranial nerves: Yes Equal, round and reactive pupils present and Yes Normal hearing present Cognition (Neuro): normal cognition Speech: normal speech Gait exam (Neuro): Normal gait present Motor exam (neuro): 5/5 motor strength present throughout Sensory Exam: normal sensation Extrem: General: normal to inspection Right upper extremity: normal to inspection Left upper extremity: normal to inspection Right lower extremity: normal to inspecti
--- NOTE | 2020-08-20 14:34 | PM.DS ---
DS: Admitting Diagnosis Admitting Diagnosis Admitting Diagnosis: DATE OF DISCHARGE 08/13/2020 DS: Discharge Diagnosis Discharge Diagnosis (1) Respiratory failure with hypoxia and hypercapnia: Code(s): J96.91 - Respiratory failure, unspecified with hypoxia; J96.92 - Respiratory failure, unspecified with hypercapnia Status: Resolved Assessment and Plan: Off Bipap and oxygen and doing well (2) CAP (community acquired pneumonia): Code(s): J18.9 - Pneumonia, unspecified organism Status: Acute Assessment and Plan: Continue azithromycin Rocephin. Transition to oral ABX on discharge (3) Suspected COVID-19 virus infection: Code(s): Z20.822 - Contact with and (suspected) exposure to COVID-19 Status: Ruled-out Assessment and Plan: Ruled out (4) Type 2 diabetes mellitus: Code(s): E11.9 - Type 2 diabetes mellitus without complications Status: Acute Assessment and Plan: Continue home DM medications (5) Hyperlipidemia: Qualifiers: Hyperlipidemia type: unspecified Qualified Code(s): E78.5 - Hyperlipidemia, unspecified Code(s): E78.5 - Hyperlipidemia, unspecified Status: Chronic Assessment and Plan: Continue home medications (6) Hypertension: Qualifiers: Hypertension type: essential hypertension Qualified Code(s): I10 - Essential (primary) hypertension Code(s): I10 - Essential (primary) hypertension Status: Chronic Assessment and Plan: P.r.n. hydralazine (7) Chronic obstructive pulmonary disease: Qualifiers: COPD type: unspecified COPD Qualified Code(s): J44.9 - Chronic obstructive pulmonary disease, unspecified Code(s): J44.9 - Chronic obstructive pulmonary disease, unspecified Status: Acute Assessment and Plan: Continue inhalers and wean off steroids at home (8) Insulin dependent diabetes mellitus: Status: Acute (9) Neuropathy: Code(s): G62.9 - Polyneuropathy, unspecified Status: Acute Assessment and Plan: Continue with gabapentin (10) TIMOTEO (acute kidney injury): Code(s): N17.9 - Acute kidney failure, unspecified Status: Inactive Assessment and Plan: Creatinine is 2.4 which is higher than normal. Please continue to monitor. May consider a renal ultrasound. Renal US shows - . Normal kidney sizes. No hydronephrosis. 2. Distended bladder. 3. Cirrhosis of the liver. pt did not know this before DS: Summary Hospital Course Hospital Course: 70-year-old female patient who has a past medical history of COPD and congestive heart failure. The patient was very confused in the emergency room and was thinking that the month was April. She was having some force lung sounds. Resolved after oxygen treatment, nebulizers and iv steroids. Time Spent with Patient Time attestation: Total time spent providing and/or coordinating discharge services:40 minutes on day of discharge Exam Const: General: cooperative, healthy appearing and comfortable Orientation/consciousness: oriented to person, oriented to place, oriented to time and patient oriented x3 Resp: Auscultation: rhonchi Percussion: percussion normal Cardio: Palpation: normal PMI Rate: regular rate Rhythm: regular rhythm Heart sounds: S1 normal heart sound present and S2 normal heart sound present Peripheral pulses: Peripheral pulses 2+ throughout GI: Inspection: normal to inspection Auscultation: normal bowel sounds Rectal Exam: deferred Back/Spine/Pelvis: Cervical Spine: cervical ROM normal Thoracic/Lumbar Spine: thoracic and lumbar spine normal to inspection Pelvis: no pain with anterior-posterior compression Skin: General skin exam: normal color Lesions: no lesions Rashes: no rashes Trauma: no lacerations or abrasions Wounds: no wounds Hair: normal Nails: normal Neuro: General: oriented to person, oriented to place, oriented to time and p
== END 2020-08-13 14:37 | disposition home or self-care (01) | DRG 189 ==
LOC: ANHED 11:02 → ANHIMU 15:51 → ANH2MED 08-12 15:23
PROVIDERS: Nurse Practitioner; Admitting Provider Family Medicine; Emergency Provider Emergency Medicine; PCP Family Medicine; Visit Provider Family Medicine
DX: J96.02 Acute respiratory failure with hypercapnia (principal); J18.9 Pneumonia, unspecified organism; J44.0 Chronic obstructive pulmonary disease with (acute) lower respiratory infection; N17.9 Acute kidney failure, unspecified; I13.0 Hypertensive heart and chronic kidney disease with heart failure and stage 1 through stage 4 chronic kidney disease, or unspecified chronic kidney disease; I50.32 Chronic diastolic (congestive) heart failure; J96.91 Respiratory failure, unspecified with hypoxia; Z20.822 Contact with and (suspected) exposure to COVID-19; E11.319 Type 2 diabetes mellitus with unspecified diabetic retinopathy without macular edema; E11.42 Type 2 diabetes mellitus with diabetic polyneuropathy; E11.22 Type 2 diabetes mellitus with diabetic chronic kidney disease; N18.9 Chronic kidney disease, unspecified; E78.5 Hyperlipidemia, unspecified; F17.210 Nicotine dependence, cigarettes, uncomplicated; Z79.82 Long term (current) use of aspirin; Z79.899 Other long term (current) drug therapy; Z86.73 Personal history of transient ischemic attack (TIA), and cerebral infarction without residual deficits
CPT/HCPCS: 36415; 36600; 51701; 71046; 76775; 80053; 81001; 82375; 82805; 82948; 83036; 83050; 83605; 83615; 83735; 84439; 84443; 84480; 85025; 87040; 93005; 93970; 94002; 94003; 94640; 96361; 96365; 96366; 96375; 97161; 97165; 99291; A9270; C9113; C9803; J0456; J0696; J1815; J1940; J2060; J2930; J7030; U0003; U0005

== ENCOUNTER 2020-09-01 11:44 | Inpatient (IN) | payer MEDICARE, MEDICAID, SELFPAY ==
[2020-09-01] VITALS (25 sets, daily range): BP systolic 110–135; BP diastolic 57–81; PULSE 4–110; RESP 14–30; TEMP 36.9; O2SAT 21–100
--- NOTE | ~2020-09-01 | XR_ITS ---
EXAMINATION: XR chest 1V portable DATE: 09/01/2020 12:50 INDICATION: Shortness of breath. Cough. TECHNIQUE: A single frontal view of the chest was obtained. COMPARISON: Chest 2 views 08/11/2020 FINDINGS: There are airspace opacities in the lower lung zones, left worse than right. There is a sma ll left pleural effusion. No pneumothorax. Cardiomegaly is noted. IMPRESSION: 1. Airspace opacities at the lung bases, left worse than right, consistent with atelectasis or less l ikely pneumonia. 2. Worsened small left pleural effusion. 3. Cardiomegaly. Reviewed, dictated and finalized at location A. IMPRESSION: 1. Airspace opacities at the lung bases, left worse than right, consistent with atelectasis or less likely pneumonia. 2. Worsened small left pleural effusion. 3. Cardiomegaly.
[2020-09-01 12:38] LABS: Basophils Percent Auto 0.3 % (0.2-1.2); Eosinophils Percent Auto 0.6 % (0-4.4); Hematocrit 38.6 % (37.0-47.0); Immature Granulocyte Absolute 0.02 K/mm3 (0.00-0.031); Immature Granulocyte Percent A 0.3 % (0-0.5); Lymphocytes Absolute Auto 1.58 K/mm3 (0.9-3.2); Lymphocytes Percent Auto 23.4 % (18.3-44.2); Mean Corpuscular HGB Conc 28.5 g/dl (32-36); Mean Corpuscular Hemoglobin 27.4 pg (26-34); Mean Platelet Volume 9.9 fl (7.4-10.4); Monocytes Absolute Auto 0.4 K/mm3 (0.1-0.6); Monocytes Percent Auto 5.9 % (2.6-8.5); Neutrophils Absolute Auto 4.7 K/mm3 (1.3-6.7); Neutrophils Percent Auto 69.5 % (45.5-73.1); Platelet Count Result 222 k/mm3 (150-375); Red Blood Count 4.02 M/mm3 (4.2-5.4); Red Cell Distribution Width 15.4 % (11.5-14.5); White Blood Count 6.8 K/mm3 (4.5-10.0)
[2020-09-01 12:42] LABS: Alveolar/Arterial O2 Gradient 42.3 mmHg; Base Excess ABG -2.8 mEq/l (+/-2.0); Fractional Inspired Oxygen 28 %; Oxygen Content ABG 14.2 %vol (16.0-22.0); Oxygen Saturation ABG 92.9 % (95.0-100.0); Oxyhemoglobin 88.7 % THb (90.0-100.0); PO2 ABG 79.7 mmHg (80.0-100.0); PO2 FiO2 Ratio Arterial Blood 2.85 %; Total Hemoglobin 11.3 g/dL (12.0-18.0)
[2020-09-01 12:44] LABS: PCO2 ABG 65.8 mmHg (35.0-45.0); pH ABG 7.214 (7.350-7.450)
[2020-09-01 12:45] LABS: Device NASAL CANNULA; Site Drawn RIGHT BRACHIAL
[2020-09-01 12:47] LABS: Anion Gap 5 mmol/L (8-16); Blood Urea Nitrogen 59 mg/dL (7-17); Calcium 9.3 mg/dL (8.4-10.2); Carbon Dioxide 32 mmol/L (22-30); Chloride 106 mmol/L (98-107); Estimated CRCL calculation 18 ml/min; Estimated Glomerular Filt Rate 22; Glucose 90 mg/dL (65-105); Potassium 4.3 mmol/L (3.4-5.0); Sodium 143 mmol/L (137-145)
[2020-09-01 12:49] LABS: INR 0.9; Prothrombin Time 12.5 Seconds (11.1-14.7)
[2020-09-01 12:50] LABS: Partial Thromboplastin Time 25.1 SECONDS (22.3-36.8)
[2020-09-01 12:56] LABS: NT Pro B Type Natriuretic Pept 705 pg/mL (5-100)
[2020-09-01 13:02] LABS: Basophilic Stippling 1+ (NORMAL); Platelet Estimate Adequate (Adequate)
[2020-09-01 13:03] LABS: Anisocytosis 1+ (NORMAL); Macrocytosis 2+ (NORMAL); Stomatocytes 1+ (NORMAL)
[2020-09-01] MEDS: LORazepam INJ (*CRX) 2 MG/ML VIAL 0.5 MG IV PUSH (13:13)
--- NOTE | 2020-09-01 13:50 | ED.WEAKNESS ---
HPI - Weakness General Chief complaint: Weakness Stated complaint: WEAKNESS Time Seen by Provider: 09/01/20 11:54 History of Present Illness HPI Narrative: Patient is a 70-year-old female who presents ER with weakness and confusion. Patient had paramedics called by neighbors who felt like she was not acting right. EMS found that patient was hypoxic and placed her on supplemental oxygen. Patient is alert and oriented x2 but not to date or situation. Chart review shows patient recently had imaging performed by ENT and was diagnosed with a laryngeal mass is causing narrowing of her trachea but no obstruction. She was subsequently referred to [facility]. Related Data Home Medications Medication Instructions Recorded Confirmed allopurinol 100 mg PO DAILY 01/17/20 09/01/20 aspirin 81 mg PO DAILY 01/17/20 08/11/20 furosemide 40 mg PO DAILY 01/17/20 09/01/20 glimepiride 2 mg PO DAILY 04/23/20 09/01/20 Breo Ellipta 1 inh INHALATION DAILY 08/11/20 09/01/20 oxybutynin chloride 5 mg PO BID 08/11/20 09/01/20 pantoprazole 40 mg PO DAILY 08/11/20 09/01/20 Allergies Allergy/AdvReac Type Severity Reaction Status Date / Time No Known Allergies Allergy Unknown Unverified 08/11/20 11:26 Review of Systems Review of Systems: ROS unobtainable: Yes unobtainable due to mental status [facility] Past Medical History Medical History (Updated 09/01/20 @ 16:21 by Angel Rushing MD) TIMOTEO (acute kidney injury) Anemia CHF (congestive heart failure), NYHA class I Diastolic congestive heart failure Chronic kidney disease Chronic obstructive pulmonary disease COPD (chronic obstructive pulmonary disease) CRF (chronic renal failure) CVA (cerebral vascular accident) Diabetic retinopathy 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 Diastolic congestive heart failure DM type 2 (diabetes mellitus, type 2) Essential hypertension Hepatitis History of colon polyps History of peptic ulcer disease Hyperlipidemia Hyperlipidemia Hyperlipidemia Hypertension Insulin dependent diabetes mellitus Laryngeal cancer Metabolic encephalopathy Morbid obesity Neuropathy OAB (overactive bladder) Obesity Overactive bladder PUD (peptic ulcer disease) Tobacco abuse Surgical History Surgical History History of bladder surgery History of cholecystectomy Family History Family History Sibling No problems noted. Mother Emphysema/COPD Father Carcinoma of colon Sibling Diabetes mellitus Social History Social History (Updated 08/11/20 @ 15:33 by Cheri Lucero NP) Social History: The patient is reported as and that she is retired Surrogate decision maker: Yfn Cheung, nephew. Code status: Full code. Smoking packs per day: 1.5 Smoking cigarettes per day: 30.0 Years smoked: 47 Smoking pack-years: 70.50 Smoking status: Current every day smoker Tobacco type: cigarettes Second hand tobacco smoke exposure: Yes Additional smoking assessment comments: does not respond to how many cigarettes but stated she still smokes Alcohol intake: unknown Substance use: unknown Substance use type: does not use Additional living arrangements comments: Lives in a senior apartment in [place]. Reportedly independent of ADLs. Ambulates mainly with an electric scooter. Gender identity (if verbalized by the patient): Female Spiritual care concerns: No Exam Narrative: Exam Narrative: GENERAL: Chronically ill-appearing, well-nourished, and in mild distress. HEAD: Normocephalic, atraumatic. EYES: PERRL and EOMI. ENT: Mucous membranes moist. CHEST: Clear to auscultation. Poor respiratory effort. No stridor. HEART: Regular rate and rhythm. Normal peripheral pulses. ABDOMEN: Soft, nontender, nondistended. EXTREMITIES: Normal range of motion. 3+ edema with chronic venous stasis changes. SKIN: Warm, dry, no r
--- NOTE | 2020-09-01 15:09 | PM.IMHP ---
H&P: HPI History of Present Illness Date/Time: 09/01/20 17:00 Chief Complaint: Weakness. Narrative: This is a 70-year-old female with a 120 pack year smoking history, Laryngoscopy per Dr. 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 Exudate was covering the area and the vocal cords appeared mobile. Some occlusion of the airway noted although no stridor. Patient was referred to [facility] for further workup including biopsy due to her chronic illness. 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 Diastolic congestive heart failure DM type 2 (diabetes mellitus, type 2) Essential hypertension Hepatitis History of colon polyps History of peptic ulcer disease Hyperlipidemia Hyperlipidemia Hyperlipidemia Hypertension Insulin dependent diabetes mellitus Laryngeal cancer Metabolic encephalopathy Morbid obesity Neuropathy OAB (overactive bladder) Obesity Overactive bladder PUD (peptic ulcer disease) Tobacco abuse Surgical History Surgical History History of bladder surgery History of cholecystectomy Family History Family History Sibling No problems noted. Mother Emphysema/COPD Father Carcinoma of colon Sibling Diabetes mellitus Social History Social History (Updated 08/11/20 @ 15:33 by Cheri Lucero NP) Social History: The patient is reported as and that she is retired Surrogate decision maker: Yfn Cheung, nephew. Code status: Full code. Smoking packs per day: 1.5 Smoking cigarettes per day: 30.0 Years smoked: 47 Smoking pack-years: 70.50 Smoking status: Current every day smoker Tobacco type: cigarettes Second hand tobacco smoke exposure: Yes Additional smoking assessment comments: does not respond to how many cigarettes but stated she still smokes Alcohol intake: unknown Substance use: unknown Substance use type: does not use Additional living arrangements comments: Lives in a senior apartment in [place]. Reportedly independent of ADLs. Ambulates mainly with an electric scooter. Gender identity (if verbalized by the patient): Female Spiritual care concerns: No Meds Home Medications and Allergies Home Medications Medication Instructions Recorded Confirmed Type allopurinol 100 mg PO DAILY 01/17/20 08/11/20 History aspirin 81 mg PO DAILY 01/17/20 08/11/20 History furosemide 40 mg PO DAILY 01/17/20 08/11/20 History gabapentin 300 mg PO TID 01/17/20 08/11/20 History albuterol sulfate [Proventil HFA] 2 puff INHALATION QID PRN #8.5 g 01/22/20 08/11/20 Rx budesonide-formoterol [Symbicort] 2 puff INHALATION Q12HR #10.2 g 01/22/20 08/11/20 Rx docusate sodium 100 mg PO Q12HR #30 cap 01/22/20 08/11/20 Rx ferrous sulfate 324 mg PO BIDWM #30 tablet 01/22/20 08/11/20 Rx nicotine [Nicoderm CQ] 1 patch TRANSDERMAL QAM #30 ea 01/22/20 08/11/20 Rx polyethylene glycol 3350 [Miralax] 17 g PO QAM PRN #30 ea 01/22/20 08/11/20 Rx Adults Multivitamin 1 tablet PO DAILY 30 Days #30 02/27/20 08/11/20 Rx tablet acetaminophen [Tylenol] 325 mg PO Q4-6H PRN 30 Days #30 02/27/20 08/11/20 Rx tablet atorvastatin 20 mg PO DAILY 30 Days #30 tablet 02/27/20 08/11/20 Rx cholecalciferol (vitamin D3) 1,000 unit PO DAILY 30 Days #30 cap 02/27/20 08/11/20 Rx [Vitamin D3] lisinopril 40 mg PO DAILY 30 Days #30 tablet 02/27/20 08/11/20 Rx glimepiride 2 mg PO DAILY 04/23/20 08/11/20 History
--- NOTE | 2020-09-01 15:40 | ADMGEN ---
This patient, Sherrie Muniz, was admitted to IMU Room 212-01 at 1540. Patient/family oriented to hospital policies and general routines including ID bracelet, bed and alarms, visiting hours, pain management, procedures, bathroom and other care routines, personal items, smoking policy, room service/diet, and visiting hours. Information on how to activate the Rapid Response Team has been discussed. Patient/Family are encouraged to report perceived risks to care and to ask questions if they do not understand what they are told or what they should do.
[2020-09-01 16:06] LABS: Base Excess ABG 0.8 mEq/l (+/-2.0); Carboxyhemoglobin 3.9 % THb (0-2.0); Fractional Inspired Oxygen 35 %; HCO3 ABG 30.5 mEq/l (22.0-26.0); Methemoglobin ABG 0.4 %THb (0-1.5); Oxygen Content ABG 14.8 %vol (16.0-22.0); Oxygen Saturation ABG 95.7 % (95.0-100.0); Oxyhemoglobin 92.3 % THb (90.0-100.0); PO2 ABG 98.6 mmHg (80.0-100.0); PO2 FiO2 Ratio Arterial Blood 2.82 %; Reduced Hemoglobin 3.4 %THb (0-5.0); Total Hemoglobin 11.3 g/dL (12.0-18.0); pH ABG 7.199 (7.350-7.450)
[2020-09-01 16:07] LABS: Device NON-INVASIVE VENT; Modified Allen's Test Pass; Non-Invasive Expiratory Pressure 8 CMH2O; Non-Invasive Inspiratory Pressure 14 CMH2O; Non-Invasive Vent Rate 12 /MIN; Site Drawn RIGHT RADIAL
[2020-09-01 17:35] LABS: Alveolar/Arterial O2 Gradient 53.3 mmHg; Base Excess ABG -0.4 mEq/l (+/-2.0); Fractional Inspired Oxygen 30 %; HCO3 ABG 29.3 mEq/l (22.0-26.0); Oxygen Content ABG 13.8 %vol (16.0-22.0); Oxygen Saturation ABG 88.4 % (95.0-100.0); Oxyhemoglobin 88.3 % THb (90.0-100.0); PO2 ABG 68.6 mmHg (80.0-100.0); PO2 FiO2 Ratio Arterial Blood 2.29 %; Total Hemoglobin 11.1 g/dL (12.0-18.0)
[2020-09-01 17:38] LABS: pH ABG 7.191 (7.350-7.450)
[2020-09-01 17:39] LABS: Device NON-INVASIVE VENT; Modified Allen's Test Pass; PCO2 ABG 78.3 mmHg (35.0-45.0); Site Drawn RIGHT RADIAL
[2020-09-01 17:40] LABS: Non-Invasive Expiratory Pressure 8 CMH2O; Non-Invasive Inspiratory Pressure 18 CMH2O; Non-Invasive Vent Rate 22 /MIN
--- NOTE | 2020-09-01 18:00 | PM.SD2 ---
Same Day Admit/Disch: HPI History of Present Illness Chief complaint: Weakness and shortness of breath Narrative: This is a 70-year-old female who presented to the emergency department earlier today via EMS from home for evaluation of weakness and shortness of breath. At the time my evaluation the patient is minimally responsive on BiPAP in thus a majority of the following history is obtained via a review of her electronic medical records as well as discussions with her nephew, Yfn Cheung, who is also her power of principal quality engineer. I also did an extensive review of the patient's electronic medical records. the patient is known to the hospitalist service with a recent admission to us overnight on 08/10/2020 at which time she presented with shortness of breath and confusion. She was admitted for hypercapnic respiratory failure and pneumonia. It looks like she improved quite quickly and she was discharged home three days later on steroids and azithromycin. COVID test came back negative. She is unable to tell me how she has been feeling since that time however it is documented that over the past couple of months she has had ongoing issues with laryngitis and was referred to Dr. Lombardo for evaluation. 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 Exudate was overlying the area though the vocal cords appeared to be mobile. Some occlusion of the airway was noted although there was no evidence of stridor. He was unable to get an extensive look at the tumor if she was having difficulties tolerating the exam. He then referred her to [facility] for further evaluation as she is high risk for biopsy. Over the last several days since that time she has become progressively more weak, has not been eating or drinking well presumably due to the mass, and she has been increasingly short of breath. Her neighbor Dayo came to visit today and she was apparently in pretty bad shape and he called 911. On EMS arrival she was alert and oriented x4 with an SpO2 of 78% on room air for which she was placed on 15 L non-rebreather. she was started on BiPAP due to hypercapnia but was continuously fighting with the mask and it had been noted previously that she had continued to refuse BiPAP when hospitalized on other occasions. Eventually she did keep the mask on however her blood gases continued to worsen despite several setting changes. On occasion she was able to tear off the BiPAP mask though she was not able to answer any questions or follow commands as she was very confused and restless. After discussions with her power of principal quality engineer, it was decided to make the patient comfortable. 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 Diastolic congestive heart failure Diastolic congestive heart failure Essential hypertension History of colon polyps History of peptic ulcer disease Hyperlipidemia Hypertension Insulin dependent diabetes mellitus Laryngeal mass Noted on laryngoscopy per Dr. Lombardo on 08/27/2020. Presumed infiltrative malignancy. Morbid obesity Overactive bladder Tobacco abuse Surgical History Surgical History History of bladder surgery History of cholecystectomy Family History Family History Sibling No problems noted. Mother Emphysema/COPD Father Carcinoma of colon Sibling Diabetes mellitus Social History Social History (Updated 09/02/20 @ 00:01 by Mine Sidhu PA-C) Social History: The patient lives in a senior apartment in [place]. She smoked 2 packs of cigarettes per day for nearly 60 years. No alcohol or illicit sub
[2020-09-01] MEDS: MORPHINE SULFATE (*CRX) 4 MG/ML INJ IV PUSH ×2 (20:20→22:25)
[2020-09-01] MEDS: LORazepam INJ (*CRX) 2 MG/ML VIAL 1 MG IV PUSH ×2 (21:00→22:25)
--- NOTE | 2020-09-01 22:52 | PC.NURSE ---
family called to update on patients condition.
--- NOTE | 2020-09-01 23:04 | PC.NURSE ---
patient at 0594. family updated of passing and will let us know where they want the body to go in am.
--- NOTE | 2020-09-02 00:03 | PC.NURSE ---
iv and telemetry removed
--- NOTE | 2020-09-02 00:07 | PC.NURSE ---
patients body moved to [facility].
== END 2020-09-01 23:00 | disposition expired | DRG 189 ==
LOC: ANHED 12:40 → ANHIMU 16:21
PROVIDERS: Physician Assistant; Admitting Provider Internal Medicine; Emergency Provider Emergency Medicine; PCP Nurse Practitioner Family; Visit Provider Internal Medicine
DX: J96.21 Acute and chronic respiratory failure with hypoxia (principal); J44.1 Chronic obstructive pulmonary disease with (acute) exacerbation; I13.0 Hypertensive heart and chronic kidney disease with heart failure and stage 1 through stage 4 chronic kidney disease, or unspecified chronic kidney disease; I50.32 Chronic diastolic (congestive) heart failure; J96.22 Acute and chronic respiratory failure with hypercapnia; J38.7 Other diseases of larynx; F17.210 Nicotine dependence, cigarettes, uncomplicated; E11.319 Type 2 diabetes mellitus with unspecified diabetic retinopathy without macular edema; E11.22 Type 2 diabetes mellitus with diabetic chronic kidney disease; E11.40 Type 2 diabetes mellitus with diabetic neuropathy, unspecified; N18.9 Chronic kidney disease, unspecified; Z51.5 Encounter for palliative care; Z66 Do not resuscitate; Z79.82 Long term (current) use of aspirin; Z79.84 Long term (current) use of oral hypoglycemic drugs; Z79.899 Other long term (current) drug therapy; Z86.010 Personal history of colon polyps; Z86.73 Personal history of transient ischemic attack (TIA), and cerebral infarction without residual deficits; Z87.11 Personal history of peptic ulcer disease
CPT/HCPCS: 36415; 36600; 71045; 80048; 82375; 82805; 83050; 83880; 85025; 85610; 85730; 94660; 96374; 99285; G0378; J2060; J2270